=== PATIENT | male | born 1950 | race Caucasian/White ===

== ENCOUNTER 2018-12-19 23:15 | Emergency (ER) | payer OTHER, BC ==
--- OUTSIDE RECORDS SUMMARY | 2018-12-19 23:19 | XMS REPORT ---
:1950 Author Organization [facility] Address [address] [place] [address] Dr. Pitts [address] [place] [id number] Care Team Providers Name Role Phone Unavailable Unavailable Unavailable Problems This patient has no known problems. Allergies, Adverse Reactions, Alerts This patient has no known allergies or adverse reactions. Medications This patient has no known medications.
--- OUTSIDE RECORDS SUMMARY | 2018-12-19 23:19 | XMS REPORT | Clinical Summary ---
:1950 Author Organization [facility] Address [address] [place] [address] Care Team Providers Name Role Phone Hiro Nathan MD Primary Care Provider Allergies No Known Allergies Medications Medication Sig Dispensed Refills Start Date End Date Status cholecalciferol, Take 1,000 0 Active vitamin D3, (VITAMIN Units by mouth D3) 2,000 unit daily. capsule capsule polyethylene glycol Take 17 g by 0 Active (MIRALAX) 17 gram mouth daily. packet docusate sodium Take 100 mg by 0 Active (COLACE) 50 MG mouth daily. capsule cyanocobalamin, Place 1,000 0 Active vitamin B-12, 5,000 mcg under the mcg tablet, tongue daily. sublingual losartan (COZAAR) 25 Take 25 mg by 0 Active MG tablet mouth 2 (two) times a day as needed. inFLIXimab Infuse into a 0 Active (REMICADE) 100 mg venous injection catheter. levothyroxine Take 88 mcg by 0 Active (SYNTHROID, LEVOXYL) mouth every 88 mcg tablet morning. clonAZEPAM Take 1 mg by 0 Active (KlonoPIN) 1 MG mouth 2 (two) tablet times a day as needed for seizures. multivitamin Chew 1 tablet 0 Active tablet,chewable daily. furosemide (LASIX) Take 1 tablet 90 tablet 0 08/17/2018 Active 40 mg tablet (40mg) by mouth twice daily as directed potassium chloride TAKE 2 90 tablet 0 08/17/2018 Active (K-DUR) 20 MEQ CR TABLETS(40 tablet MEQ) BY MOUTH DIRECTED UNITHROID 88 mcg TK 1 T PO QD. 11 07/05/2016 Discontinued tablet 8 aspirin (ECOTRIN) 81 Take 81 mg by 0 Discontinued MG enteric coated mouth daily. 8 tablet propafenone SR Take 325 mg by 3 06/07/2016 Discontinued (RYTHMOL SR) 325 MG mouth 2 (two) 9 12 hr capsule times a day. clonAZEPAM TK 1 T PO BID. 2 07/05/2016 Discontinued (KlonoPIN) 1 MG 8 tablet furosemide (LASIX) Take 40 mg by 3 05/31/2016 Discontinued 40 mg tablet mouth daily as 8 needed. Prn for BLE swelling therapeutic Take 1 tablet 0 Discontinued multivitamin by mouth 8 (THERAGRAN) tablet daily. sodium,potassium,mag Dispense one 354 mL 0 01/30/2018 Discontinued sulfates (SUPREP kit, pt to use 8 BOWEL PREP KIT) as directed. 17.5-3.13-1.6 gram recon solnIndications: Encounter for screening colonoscopy multivitamins & Take 15 mL by 0 Discontinued minerals-ferrous mouth daily. 8 gluconate 9 mg iron/15 mL liquid mercaptopurine Take 1 tablet 20 tablet 0 05/04/2018 Discontinued (PURINETHOL) 50 mg (50 mg total) 8 chemo by mouth daily tabletIndications: for 20 days. Crohn's disease of small intestine with other complication (HCC) mercaptopurine TAKE 1 TABLET 90 tablet 0 06/08/2018 Discontinued (PURINETHOL) 50 mg BY MOUTH 8 chemo DAILY. tabletIndications: Crohn's disease of small intestine with other complication (HCC) azaTHIOprine Take 2 tablets 60 tablet 0 06/12/2018 Discontinued (IMURAN) 50 mg (100 mg total) 8 tabletIndications: by mouth daily Crohn's disease of for 30 days. both small and lg int w oth complication (HCC) azaTHIOprine TAKE 2 TABLETS 60 tablet 2 06/12/2018 Discontinued (IMURAN) 50 mg BY MOUTH DAILY 8 tabletIndications: Crohn's disease of both small and lg int w oth complication (HCC) furosemide (LASIX) Take 40 mg by 0 Discontinued 40 mg tablet mouth as 8 needed. apixaban (ELIQUIS) 5 Take 1 tablet 60 tablet 0 07/06/2018 Discontinued mg tablet (5 mg total) 9 by mouth 2 (two) times a day for 30 days. pantoprazole Take 1 tablet 30 tablet 0 07/07/2018 (PROTONIX) 40 MG EC (40 mg total) 9 tablet by mouth daily for 30 days. furosemide (LASIX) Take 1 tablet 14 tablet 1 07/14/2018 Discontinued 40 mg tablet (40 mg total) 8 by mouth 2 (two) times a day for 7 days. potassium chloride Take 2 (40 14 tablet 1 07/14/2018 Discontinued (K-DUR) 20 MEQ CR mEq) tablets 8 tablet by mouth once daily for 7 days furosemide (LASIX) TAKE 1 180 tablet 1 07/17/2018 Discontinued 40 mg tablet TABLET(40 MG) 9 BY MOUTH TWICE DAILY FOR 7 DAYS potassium chloride TAKE 2 180 tablet 1 07/17/2018 Discontinued (K-DUR) 20 MEQ CR TABLETS(40 9 tablet MEQ) BY MOUTH EVERY DAY FOR 7 DAYS potassium chloride TAKE 2 10 tablet 0 07/24/2018 Discontinued (K-DUR) 20 MEQ CR TABLETS(40 9 tablet MEQ) BY MOUTH DIRECTED furosemide (LASIX) Take 1 tablet 10 tablet 0 07/24/2018 Discontinued 40 mg tablet (40mg) by 9 mouth twice daily as directed methotrexate, PF, 25 Inject 25 mg 0.5 mL 0 08/03/2018 mg/0.5 mL under the skin 9 auto-injectorIndicat once for 1 ions: Crohn's dose. disease of small and large intestines with complication (HCC) methotrexate Take 1 tablet 4 tablet 2 08/03/2018 (TREXALL) 10 MG (10 mg total) 9 tabletIndications: by mouth once Crohn's disease of a week for 90 small and large days. intestines with complication (HCC) apixaban (ELIQUIS) 5 Take 1 tablet 60 tablet 0 08/04/2018 Discontinued mg tablet (5 mg total) 9 by mouth 2 (two) times a day for 30 days. ELIQUIS 5 mg tablet TAKE 1 60 tablet 0 08/31/2018 Discontinued TABLET(5 MG) 9 BY MOUTH TWICE DAILY ELIQUIS 5 mg tablet TAKE 1 60 tablet 0 10/04/2018 Discontinued TABLET(5 MG) 9 BY MOUTH TWICE DAILY apixaban (ELIQUIS) 5 Take 1 tablet 180 tablet 3 10/04/2018 Discontinued mg tablet (5 mg total) 9 by mouth 2 (two) times a day. Active Problems Problem Noted Date PVC (premature ventricular contraction) 10/13/2018 Last Assessment & Plan: Skipped beats almost daily Bardy 1-wk monitor to assess for PVC burden RTC ~ 3 months Localized edema 10/13/2018 Overview: R LE > L LE edema continue with knee-high tedhose Continue Lasix Paroxysmal atrial fibrillation 04/14/2018 Last Assessment & Plan: No recurrence after ablation (07/05/18) RTC ~ 3 months Atrial fibrillation 12/08/2017 Last Assessment & Plan: No recurrence Crohn's disease 03/25/2017 Abdominal pain 01/05/2017 Gastrointestinal bleeding 12/23/2016 Iron deficiency anemia 08/27/2016 Encounters Date Type Specialty Care Team Description 12/15/2018 Clinical Support Gastroenterology Crohn's disease of small intestine with other complication (HCC) 12/15/2018 Office Visit Cardiology [place] Atrial fibrillation, unspecified type (HCC) (Primary Dx); Mahin Bravo MD PVC (premature ventricular contraction) 12/15/2018 Infusion Infusion Therapy Iron deficiency anemia, unspecified iron deficiency anemia type (Primary Dx) 12/14/2018 Telephone Gastroenterology Yolis Kauffman MA 12/07/2018 Telephone Gastroenterology Yolis Kauffman MA 11/29/2018 Telephone Gastroenterology Yolis Kauffman MA 11/28/2018 Infusion Infusion Therapy Crohn's disease of small intestine with other complication (HCC) (Primary Dx) 11/21/2018 Telephone Gastroenterology Yolis Kauffman MA 11/09/2018 Office Visit Gastroenterology Isiah Wang Crohn's disease of O.MD small intestine with other complication (HCC) (Primary Dx) 10/13/2018 Office Visit Cardiology [place] Paroxysmal atrial fibrillation (HCC) (Primary Dx); Mahin Bravo MD PVC (premature ventricular contraction); Localized edema 10/05/2018 Infusion Infusion Therapy Crohn's disease of small intestine with other complication (HCC) (Primary Dx) 10/04/2018 Refill Cardiology Magalys Casper Refill Misty, RN 10/02/2018 Refill Cardiology [facility] Med Refill Mahin Bravo MD 09/01/2018 Orders Only Cardiology Mahin Goodson MD 08/31/2018 Refill Cardiology [place], Med Refill Mahin Bravo MD 08/17/2018 Orders Only Cardiology Prema Grider MA 08/07/2018 Office Visit Cardiology Melinda Goodson MD fibrillation (HCC) (Primary Dx) 08/04/2018 Refill Cardiology Prema Grider, Med Refill MA 08/04/2018 Refill Cardiology [place] Med Refill Mahin Bravo MD 08/04/2018 Refill Cardiology [place] Med Refill Mahin Bravo MD 08/03/2018 Office Visit Gastroenterology Isiha Wang Crohn's disease of O.MD small and large intestines with complication (HCC) (Primary Dx) 08/03/2018 Infusion Infusion Therapy Crohn's disease of small intestine with other complication (HCC) (Primary Dx) 08/03/2018 Orders Only Cardiology Magalys Casper Atrial Misty, SHERLYN fibrillation, unspecified type (HCC) (Primary Dx) 08/03/2018 Refill Cardiology [facility] Med Refill Mahin Bravo MD 07/24/2018 Orders Only Cardiology Prema Grider, Paroxysmal atrial MA fibrillation (HCC) (Primary Dx) 07/14/2018 Refill Cardiology [place] Med Refill Mahin Bravo MD 07/14/2018 Refill Cardiology Prema Grider, Med Refill MA 07/13/2018 Telephone Gastroenterology Yolis Kauffman MA 07/06/2018 Refill Cardiology Mirza Goodson Refadrianna Bravo MD 07/05/2018 Anesthesia Event Procedural Cardiology Renan Burch CRNA 07/05/2018 Surgery Procedural Cardiology Khadijah Goodson complete ep Mahin Bravo MD study w ablation pulmonary vein [68255 (CPT)] 07/05/2018 Hospital Cardiology Melinda Goodson atrial - Encounter Mahin Bravo MD fibrillation (HCC) 07/06/2018 07/03/2018 Lab Lab [facility] Paroxysmal atrial Mahin Braov MD fibrillation (HCC) (Primary Dx) 06/21/2018 Orders Only Gastroenterology Yolis Kauffman, Crohn's disease of [place] small intestine with other complication (HCC) (Primary Dx) 06/13/2018 Infusion Infusion Therapy Crohn's disease of small intestine with other complication (HCC) (Primary Dx) 06/12/2018 Refill Gastroenterology Isiah Wang Crohn's disease of O.MD both small and lg int w oth complication (HCC) 06/12/2018 Telephone Gastroenterology Yolis Kauffman MA 06/12/2018 Orders Only Gastroenterology Yolis Kauffman, Crohn's disease of [place] both small and lg int w oth complication (HCC) (Primary Dx) 06/06/2018 Orders Only GastroenterYolis Damon MA 06/06/2018 Refill Gastroenterology Isiah Wang's disease of OMD [place] small intestine with other complication (HCC) 06/02/2018 Telephone Gastroenterology Yolis Kauffman MA 06/01/2018 Orders Only Cardiology Cheo, Prema, Paroxysmal atrial MA fibrillation (HCC) (Primary Dx) 05/23/2018 Telephone GastroenterYolis Damon MA 05/23/2018 Telephone GastroenterYolis Damon MA 05/12/2018 Telephone GastroenterYolis Damon MA 05/04/2018 Office Visit Gastroenterology Isiah Wang's valentin of OMD [place] small intestine with other complication (HCC) (Primary Dx) 04/18/2018 Infusion Infusion Therapy Crohn's disease of small intestine with other complication (HCC) (Primary Dx) 04/14/2018 Orders Only Cardiology Cheo, Prema, Paroxysmal atrial MA fibrillation (Primary Dx) 03/08/2018 Orders Only Cardiology Cheo, Prema, Atrial MA fibrillation, unspecified type (Primary Dx) 03/08/2018 Orders Only Cardiology Cheo, Prema, Atrial MA fibrillation, unspecified type (Primary Dx) 03/02/2018 Office Visit Gastroenterology Isiah Wang's valentin of OMD [place] small intestine with other complication (Primary Dx) 03/02/2018 Hospital Procedural Cardiology Valderrabano, Crohn's disease of Encounter Mahin Bravo MD small intestine with other complication 02/21/2018 Infusion Infusion Therapy Crohn's disease of small intestine with other complication (Primary Dx) 02/08/2018 Telephone Gastroenterology Yolis Kauffman MA 02/07/2018 Surgery Gastroenterology Isiah Wang MD 02/07/2018 Anesthesia Event Gastroenterology Tien Devi MD 02/07/2018 [facility] Gastroenterology Isiah Wang Paroxysmal atrial Encounter MD [place] fibrillation (Primary Dx) 01/30/2018 Orders Only Gastroenterology Yolis Kauffman, Encounter for [place] screening colonoscopy (Primary Dx) 01/10/2018 Orders Only GastroenterYolis Damon MA 01/10/2018 Telephone Yolis Funk MA 01/09/2018 Office Visit Gastroenterology Isiah Wang Crohn's disease of both small and large intestine with other complication (Primary Dx); MD [place] Anemia, unspecified type 01/02/2018 Telephone Gastroenterology Isiah Wang MD 12/27/2017 Infusion Infusion Therapy Crohn's disease of small intestine with other complication (Primary Dx) 12/27/2017 Orders Only GastroenterYolis Damon, Crohn's disease of [place] small intestine with complication (Primary Dx) after 12/18/2017 Immunizations Name Dates Previously Given Next Due Hep A / Hep B 03/29/2017 Hepatitis A 10/25/2017 Hepatitis B 05/10/2017 Family History Medical History Relation Name Comments No Known Problems Brother No Known Problems Father No Known Problems Maternal Aunt No Known Problems Maternal Grandfather No Known Problems Maternal Grandmother No Known Problems Maternal Uncle Colon polyps Mother No Known Problems Paternal Aunt No Known Problems Paternal Grandfather No Known Problems Paternal Grandmother No Known Problems Paternal Uncle No Known Problems Sister Relation Name Status Comments Brother Father Maternal Aunt Maternal Grandfather Maternal Grandmother Maternal Uncle Mother Paternal Aunt Paternal Grandfather Paternal Grandmother Paternal Uncle Sister Social History Tobacco Use Types Packs/Day Years Used Date Never Smoker Smokeless Tobacco: Never Used Alcohol Use Drinks/Week oz/Week Comments No Sex Assigned at Date Recorded Not on file Job Start Date Occupation Industry Not on file Not on file Not on file Travel History Travel Start Travel End No recent travel history available. Last Filed Vital Signs Vital Sign Reading Time Taken Blood Pressure 121/58 12/15/2018 1:01 PM CDT Pulse 56 12/15/2018 1:01 PM CDT Temperature 36.8 C (98.3 F) 11/09/2018 3:37 PM CDT Respiratory Rate 16 12/15/2018 1:01 PM CDT Oxygen Saturation 98% 07/06/2018 7:44 AM [employer] EXAM[employer] Inhaled Oxygen Concentration - - Weight 73.9 kg (163 lb) 12/15/2018 1:01 PM CDT Height 182.9 cm (6') 12/15/2018 1:01 PM CDT Body Mass Index 22.11 12/15/2018 1:01 PM CDT Plan of Treatment Date Type Specialty Care Team Description 12/25/2018 Infusion Infusion Therapy 01/23/2019 Infusion Infusion Therapy 02/01/2019 Office Visit Gastroenterology Isaih Wang MD [address] [facility] [address] [place], [place] [id number] 03/09/2019 Office Visit Cardiology Mahin Goodson MD [address] [facility] [address] [place], [place] [id number] Health Maintenance Due Date Last Done Comments SHINGLES VACCINES (#1) 1999 65+ PNEUMOCOCCAL VACCINE (1 of 2 - PCV13) 2014 PNEUMOCOCCAL POLYSACCHARIDE VACCINE AGE 65 AND OVER 2014 INFLUENZA VACCINE 02/15/2019 COLON CANCER SCREENING 02/07/2023 02/07/2018 Procedures Procedure Name Priority Date/Time Associated Diagnosis Comments ECG 12-LEAD Routine 12/15/2018 1:01 Atrial fibrillation, Results for this PM CDT unspecified type procedure are in (HCC) the results section. EXTRA LAVENDER-TOP Routine 11/28/2018 10:44 Results for this TUBE (NOT ORDERABLE) AM CDT procedure are in the results section. FOLATE LEVEL STAT 11/28/2018 10:44 Crohn's disease of Results for this AM CDT small intestine with procedure are in other complication the results ([facility]) section. VITAMIN B12 LEVEL STAT 11/28/2018 10:44 Crohn's disease of Results for this AM CDT small intestine with procedure are in other complication the results ([facility]) section. VITAMIN D 25 HYDROXY STAT 11/28/2018 10:44 Crohn's disease of Results for this LEVEL AM CDT small intestine with procedure are in other complication the results (HCC) section. TOTAL IRON BINDING Routine 11/28/2018 10:44 Crohn's disease of Results for this CAPACITY AM CDT small intestine with procedure are in other complication the results (HCC) section. FERRITIN LEVEL STAT 11/28/2018 10:44 Crohn's disease of Results for this AM CDT small intestine with procedure are in other complication the results (HCC) section. CALPROTECTIN, STOOL Routine 11/16/2018 3:52 Crohn's disease of Results for this PM CDT small intestine with procedure are in other complication the results (HCC) section. BASIC METABOLIC PANEL Routine 11/16/2018 3:50 Crohn's disease of Results for this PM CDT small intestine with procedure are in other complication the results (HCC) section. SEDIMENTATION RATE Routine 11/16/2018 3:50 Crohn's disease of Results for this PM CDT small intestine with procedure are in other complication the results (HCC) section. C-REACTIVE PROTEIN Routine 11/16/2018 3:50 Crohn's disease of Results for this PM CDT small intestine with procedure are in other complication the results (HCC) section. CBC WITH PLATELET AND Routine 11/16/2018 3:50 Crohn's disease of Results for this DIFFERENTIAL PM CDT small intestine with procedure are in other complication the results (HCC) section. ECG 12-LEAD Routine 10/13/2018 2:06 Paroxysmal atrial Results for this PM CDT fibrillation (HCC) procedure are in the results section. CV PACEMAKER DEFIB ILR Routine 09/01/2018 INTERROGATION ECG 12-LEAD Routine 08/07/2018 1:38 Paroxysmal atrial Results for this PM [employer]ER fibrillation (HCC) procedure are in the results section. ECHOCARDIOGRAM 2D Routine 08/03/2018 4:33 Atrial fibrillation, Results for this COMPLETE W MMODE PM [employer]ER unspecified type procedure are in SPECTRAL COLOR DOPPLER ([facility]) the results ([address]) section. QUANTIFERON-TB GOLD Routine 08/03/2018 11:15 Results for this PLUS, 1 TUBE AM [employer]ER procedure are in the results section. COMPREHENSIVE STAT 07/27/2018 9:59 Paroxysmal atrial Results for this METABOLIC PANEL AM [employer]ER fibrillation (HCC) procedure are in the results section. ECG 12-LEAD Routine 07/06/2018 6:09 Results for this AM [employer]ER procedure are in the results section. ECG 12-LEAD STAT 07/05/2018 6:48 Results for this PM [employer] EX[employer]ER procedure are in the results section. ACTIVATED CLOTTING Routine 07/05/2018 6:16 Results for this TIME PM [employer] EXAMINER procedure are in the results section. ACTIVATED CLOTTING Routine 07/05/2018 5:49 Results for this TIME PM [employer] EX[employer]ER procedure are in the results section. EP COMPLETE EP STUDY W Routine 07/05/2018 5:44 Paroxysmal atrial Results for this ABLATION PULMONARY PM [employer] EXAM[employer]ER fibrillation (HCC) procedure are in VEIN the results section. ACTIVATED CLOTTING Routine 07/05/2018 4:35 Results for this TIME PM [employer] EXAMINER procedure are in the results section. ACTIVATED CLOTTING Routine 07/05/2018 4:27 Results for this TIME PM [employer] EXAMINER procedure are in the results section. ACTIVATED CLOTTING Routine 07/05/2018 4:19 Results for this TIME PM [employer] EXAMINER procedure are in the results section. ACTIVATED CLOTTING Routine 07/05/2018 4:10 Results for this TIME PM [employer] EXAMINER procedure are in the results section. ARTERIAL LINE Routine 07/05/2018 3:57 PM HAND [employer]OTH EXAMINER Procedure Note - Juan Toth CRNA - 07/05/2018 3:57 PM HAND [employer]OTH EXAMINER Arterial line Performed by: Juan Toth CRNA Authorized by: Sushma Segura MD Patient Location: OR Start Time: 07/05/2018 3:36 PM End Time: 07/05/2018 3:40 PM Staff: Anesthesiologist: Sushma Segura MD Resident/MOTION PICTURE CAMERAMAN/AA: Juan Toth CRNA Performed by: Anesthesiologist Pre-procedure: patient identified, IV checked, site and side verified, risks and benefits discussed, procedure verified, surgical consent complete, patient position confirmed, monitors and equipment checked and pre-op evaluation complete MSBT: antiseptic used, all elements of maximal sterile barrier technique followed, hand hygiene performed and solutions labeled Indications: Indications: multiple ABGs and hemodynamic monitoring Anesthesia: Anesthesia: General Procedure Details: Arterial Line placement: Placed post induction Line placement site: Radial Line placement side: Left Arterial line gauge: 20 G Number of attempts: 1 Ultrasound guidance used: No Post-procedure: Post-procedure: Sterile dressing applied Post procedure circulation, sensation, movement: Unchanged Patient tolerance: Patient tolerated the procedure well with no immediate complications ANESTHESIA INTUBATION Routine 07/05/2018 3:53 PM [employer]OTH EXAMINER Procedure Note - Juan Toth CRNA - 07/05/2018 3:53 PM HAND [employer]OTH EXAMINER ANESTHESIA INTUBATION Date/Time: 07/05/2018 3:39 PM Performed by: Juan Toth CRNA Authorized by: Sushma Segura MD Location: OR Difficult Airway: No Anesthesiologist: Sushma Segura MD Resident/MOTION PICTURE CAMERAMAN/AA: Juan Toth CRNA Performed by: resident/MOTION PICTURE CAMERAMAN/AA Preoxygenated with 100% O2: Yes Mask Ventilation: Easy mask Final Airway Type: Endotracheal airway Final Endotracheal Airway: ETT Cuffed: Yes Technique Used: Direct laryngoscopy Devices/Methods Used in Placement: Intubating stylet Insertion Site: Oral Blade Type: Theodore Laryngoscope Blade/Videolaryngoscope Blade Size: 2 ETT Size (mm): 8.0 Cuff at minimum occlusion pressure: Yes Measured from: Lips ETT to Lips (cm): 23 Placement Verified by: CO2 detection, direct visualization and equal breath sounds Laryngoscopic view: Grade I - full view of glottis Rapid Sequence Induction (RSI): No Number of Attempts at Approach: 1 Atraumatic intubation, dentition unchanged ECG 12-LEAD STAT 07/05/2018 12:36 Results for this PM [employer]ER procedure are in the results section. TYPE AND SCREEN Routine 07/05/2018 12:35 Results for this PM [employer]ER procedure are in the results section. C-REACTIVE PROTEIN Routine 07/03/2018 4:22 Results for this PM [employer] EX[employer]INER procedure are in the results section. SEDIMENTATION RATE Routine 07/03/2018 4:22 Results for this PM [employer] EX[employer]ER procedure are in the results section. ESTIMATED GFR Routine 07/03/2018 4:22 Results for this PM [employer]ER procedure are in the results section. PROTHROMBIN TIME WITH INR Routine 07/03/2018 4:22 Paroxysmal atrial Results for this PM [employer]ER fibrillation (HCC) procedure are in the results section. HC COMPLETE BLD COUNT Routine 07/03/2018 4:22 Paroxysmal atrial Results for this W/AUTO DIFF PM [employer] EXAM[employer]ER fibrillation (HCC) procedure are in the results section. COMPREHENSIVE METABOLIC Routine 07/03/2018 4:22 Paroxysmal atrial Results for this PANEL PM [employer] EXAMINER fibrillation (HCC) procedure are in the results section. CBC WITH PLATELET AND Routine 05/22/2018 1:54 Crohn's disease of Results for this DIFFERENTIAL PM [employer] EXAMINER small intestine procedure are in with other the results complication (HCC) section. THIOPURINE Routine 05/05/2018 3:58 Crohn's disease of Results for this METHYLTRANSFERASE (TPMT) PM CDT small intestine procedure are in ACTIVITY with other the results complication (HCC) section. C-REACTIVE PROTEIN STAT 04/18/2018 10:14 Crohn's disease of Results for this AM CDT small intestine procedure are in with other the results complication (HCC) section. SEDIMENTATION RATE STAT 04/18/2018 10:14 Crohn's disease of Results for this AM CDT small intestine procedure are in with other the results complication (HCC) section. CBC WITH PLATELET AND STAT 04/18/2018 10:14 Crohn's disease of Results for this DIFFERENTIAL AM CDT small intestine procedure are in with other the results complication (HCC) section. CALPROTECTIN, STOOL Routine 03/25/2018 11:38 Crohn's disease of Results for this AM CDT small intestine procedure are in with other the results complication section. CBC WITH PLATELET AND Routine 03/25/2018 11:36 Crohn's disease of Results for this DIFFERENTIAL AM CDT small intestine procedure are in with other the results complication section. SEDIMENTATION RATE Routine 03/25/2018 11:36 Crohn's disease of Results for this AM CDT small intestine procedure are in with other the results complication section. C-REACTIVE PROTEIN Routine 03/25/2018 11:36 Crohn's disease of Results for this AM CDT small intestine procedure are in with other the results complication section. COMPREHENSIVE METABOLIC Routine 03/25/2018 11:36 Crohn's disease of Results for this PANEL AM CDT small intestine procedure are in with other the results complication section. CARDIAC MRI PULMONARY Routine 03/02/2018 2:51 Crohn's disease of Results for this VEIN ABLATION EVAL W PM CDT small intestine procedure are in CONTRAST with other the results complication section. POC PANEL Routine 03/02/2018 1:37 Results for this PM CDT procedure are in the results section. ESTIMATED GFR Routine 03/02/2018 1:37 Results for this PM CDT procedure are in the results section. COLONOSCOPY 02/07/2018 9:45 Crohn's disease of AM CDT both small and large intestine with other complication CALPROTECTIN, STOOL Routine 01/03/2018 2:41 Crohn's disease of Results for this PM CDT small intestine procedure are in with complication the results section. C-REACTIVE PROTEIN STAT 12/27/2017 10:20 Crohn's disease of Results for this AM CDT small intestine procedure are in with other the results complication section. SEDIMENTATION RATE STAT 12/27/2017 10:20 Crohn's disease of Results for this AM CDT small intestine procedure are in with other the results complication section. CBC WITH PLATELET AND STAT 12/27/2017 10:20 Crohn's disease of Results for this DIFFERENTIAL AM CDT small intestine procedure are in with other the results complication section. after 12/18/2017 Results ECG 12 lead (12/15/2018 1:01 PM CDT)Only the most recent of6 resultswithin the time period is included. Ventricular rate 55 [facility] Atrial rate 55 [facility] SC interval 174 [facility] QRSD interval 94 [facility] QT interval 414 [facility] QTC interval 396 [facility] P axis 1 67 [facility] QRS axis 1 47 [facility] T wave axis 10 [facility] EKG impression Sinus [facility] bradycardia-Otherwise normal ECG-In automated comparison with ECG of 13-OCT-2018 14:06,-No significant change was found- Specimen Narrative Performed At Performing Organization Address [facility] Phone Number [facility] [address] [place] [address] Extra lavender-top tube (11/28/2018 10:44 AM CDT) EXTRA LAVENDER-TOP [facility] TUBE Comment: [place] AN EXTRA SPECIMEN WAS RECEIVED WITH NO TEST REQUESTED. THE SPECIMEN WILL BE MAINTAINED IN STORAGE IN CASE ADDITIONAL TESTING IS NEEDED. PLEASE CALL THE CLIENT SERVICE DEPARTMENT FOR FURTHER ASSISTANCE. Specimen Resulting Agency Comment Performing Organization Information: Site ID: RGA [facility]: [facility] Address: [address] [place] [phone] Director: Mary Vargas Performing Organization Address City/[facility]/Zipcode Phone Number [facility] [address] [address] Total iron binding capacity (11/28/2018 10:44 AM CDT) Pathologist [facility] Iron level 45 (L) 50 - 180 mcg/dL [employer] [facility] Iron binding capacity 384 250 - 425 [facility] mcg/dL (calc) [place] Iron saturation 12 (L) 15 - 60 % [facility] (calc) [place] Specimen Blood Resulting Agency Comment Performing Organization Information: Site ID: RGA Name: [facility] Address: [address] [place] [phone] Director: Mary Vargas Performing Organization Address [facility] [place] [address] Vitamin D 25 hydroxy level (11/28/2018 10:44 AM CDT) Vitamin D, 46 30 - 100 [facility] 25-hydroxy Comment: ng/mL [facility] Vitamin D Status 25-OH Vitamin D: Deficiency:<20 ng/mL Insufficiency: 20 - 29 ng/mL Optimal: > or=30 ng/mL For 25-OH Vitamin D testing on patients on D2-supplementation and patients for whom quantitation of D2 and D3 fractions is required, the QuestAssureD(TM) 25-OH VIT D, (D2,D3), LC/MS/MS is recommended: order code 50152 (patients >2yrs). For more information on this test, go to: http://education.Vocollect/faq/DKX333 (This link is being provided for informational/educational purposes only.) Specimen Blood Resulting Agency Comment Performing Organization Information: Site ID: RGA Name: [facility] Address: [address] [place] [phone] Director: Mary Vargas Performing Organization Address [facility] [place] [address] Folate level (11/28/2018 10:44 AM CDT) Pathologist [facility] Folate >24.0 ng/mL [facility] Comment: [place] Reference Range Low: <3.4 Borderline:3.4- 5.4 Normal:> 5.4 Specimen Blood Resulting Agency Comment Performing Organization Information: Site ID: RGA Name: [facility] Address: [address] [place] [phone] Director: Mary Vargas Performing Organization Address [facility] [place] [address] Ferritin level (11/28/2018 10:44 AM CDT) Ferritin level 8 (L) 20 - 380 ng/mL [employer] [place] Specimen Blood Resulting Agency Comment Performing Organization Information: Site ID: RGA Name: [facility] Address: [address] [place] [phone] Director: Mary Vargas Performing Organization Address [facility] Hospital[facility] [place] [address] Vitamin B12 level (11/28/2018 10:44 AM CDT) Vitamin B12 700 200 - 1,100 pg/mL [employer] [facility] Specimen Blood Resulting Agency Comment Performing Organization Information: Site ID: RGA Name: [facility] Address: [address] [place] [phone] Director: Mary Vargas Performing Organization Address [facility] [place] [address] Calprotectin, stool (11/16/2018 3:52 PM CDT)Only the most recent of3 resultswithin the time period is included. Calprotectin, 458.2 (H) mcg/g [facility] stool Comment: DIAGNOSTICS/JAZMIN LS SJ <15.625 - 50 mcg/g Normal >50 - 120 mcg/gBorderline >120 mcg/g Abnormal Calprotectin in Crohn's disease and ulcerative colitis can be five to several thousand times above the reference population (50 mcg/g or less). Levels are usually 50 mcg/g or less in healthy patients and with irritable bowel syndrome. Repeat testing in 4-6 weeks is suggested for borderline values. Specimen Stool Narrative Performed At FASTING:NO [facility] FASTING: NO Resulting Agency Comment Performing Organization Information: Site ID: EZ Name: [facility], Address: [address] [place] [phone] Director: Danielle Jones MD,PhD,DERECK Performing Organization Address City/State/[facility] Hospitalcode Phone Number [facility] [address] [place], [place] [phone] [facility] Sedimentation rate (11/16/2018 3:50 PM CDT)Only the most recent of5 resultswithin the time period is included. Sedimentation rate 2 < OR=20 mm/h [facility] C4M [place] Specimen Blood Narrative Performed At FASTING:NO [facility] FASTING: NO Resulting Agency Comment Performing Organization Information: Site ID: RGA Name: [facility] Address: [address] [place] [phone] Director: Mary Vargas Performing Organization Address City/State/Zipcode Phone Number [facility] [address] [address] CBC with platelet and differential (11/16/2018 3:50 PM CDT)Only the most recent of6 resultswithin the time period is included. WBC 4.5 3.8 - 10.8 [facility] Thousand/uL [place] RBC 3.94 (L) 4.20 - 5.80 [facility] Million/uL [place] HGB 10.0 (L) 13.2 - 17.1 [facility] g/dL [place] HCT 31.8 (L) 38.5 - 50.0 % [employer] [place] MCV 80.7 80.0 - 100.0 fL [employer] [place] MCH 25.4 (L) 27.0 - 33.0 pg [employer] [place] MCHC 31.4 (L) 32.0 - 36.0 [facility] g/dL [place] RDW 14.4 11.0 - 15.0 % [employer] [place] Platelet count 209 140 - 400 [facility] Thousand/uL [place] MPV 10.1 7.5 - 12.5 fL [employer] [place] Neutrophils, absolute 3,177 1,500 - 7,800 [facility] cells/uL [place] Lymphocytes, absolute 671 (L) 850 - 3,900 [facility] cells/uL [place] Monocytes, absolute 531 200 - 950 [facility] cells/uL [place] Eosinophils, absolute 81 15 - 500 [facility] cells/uL [place] Basophils, absolute 41 0 - 200 [facility] cells/uL [place] Neutrophils 70.6 % [facility] Lymphocytes 14.9 % [facility] Monocytes 11.8 % [facility] [place] Eosinophils 1.8 % [facility] [place] Basophils + RC 0.9 % [employer] [place] Specimen Blood Narrative Performed At FASTING:NO [facility] FASTING: NO Resulting Agency Comment Performing Organization Information: Site ID: [id number] Name: [facility] Address: [address] [place] [phone] Director: Mary Vargas Performing Organization Address [facility] [place] [address] C-reactive protein (11/16/2018 3:50 PM CDT)Only the most recent of5 resultswithin the time period is included. CRP 0.6 <8.0 mg/L [employer] [facility] Specimen Blood Narrative Performed At FASTING:NO [facility] FASTING: NO Resulting Agency Comment Performing Organization Information: Site ID: CALEB Name: [facility] Address: [address] [place] [phone] Director: Mary Vargas Performing Organization Address [facility] Hospital[facility] Phone [place] [address] Basic metabolic panel (11/16/2018 3:50 PM CDT) Glucose 103 65 - 139 [facility] Comment: mg/dL [place] Non-fasting reference interval BUN, whole blood 14 7 - 25 mg/dL [facility] [place] Creatinine 0.76 0.70 - 1.25 [facility] Comment: mg/dL [place] For patients >49 years of age, the reference limit for Creatinine is approximately 13% higher for people identified as -Gambian. EGFR Non-Afr. 93 > OR=60 [facility] Gambian mL/min/1.73m [place] 2 EGFR 108 > OR=60 [facility] Gambian mL/min/1.73m [facility] 2 BUN/creatinine NOT APPLICABLE 6 - 22 [facility] ratio (calc) [place] Sodium 137 135 - 146 [facility] mmol/L [place] Potassium 4.2 3.5 - 5.3 [facility] mmol/L [place] Chloride 103 98 - 110 [facility] mmol/L [place] CO2 30 20 - 32 [facility] mmol/L [place] Calcium 8.7 8.6 - 10.3 [facility] mg/dL [place] Specimen Blood Narrative Performed At FASTING:NO [facility] FASTING: NO Resulting Agency Comment Performing Organization Information: Site ID: RGA Name: [facility] Address: [address] [place] [address] Director: Mary Vargas Performing Organization Address City/State/Zipcode Phone Number [facility] [employer] [place] [address] [place], [place] [phone] CV pacemaker defib or ilr interrogation (09/01/2018) Narrative Performed At Echocardiogram complete w contrast and 3D if needed (08/03/2018 4:33 PM HAND CLOTH EXAMINER) Specimen Narrative Performed At [facility] Echocardiography Report Pat.Name:MADI TIWARI JPat.ID:[id number] .Date: 08/03/2018 Refer.MD:MAHIN GOODSON MD Exam Time: 4:12:00 PMStudy Type:Routine Echo Height:72inWeight: 172lb BSA: 2 u8XHRFdl:1950,67Y Sex: MALEBP:134/70 HR:70 bpmSonogrphr: TOMASA Potter Pat. Stat.:OutpatientRoom:[facility] Study Status:Final Echo Event ID:[id number] Order ID:[id number] Reason for Study:Atrial fibrillation, unspecified type (HCC) [I48.91] History / Clinical:Atrial Fibrillation Procedures:2D Echo, Colorflow Doppler Race: SUMMARY: -LV EF is normal. Overall wall motion is normal. EF is 66%. LV filling pressure is normal. -RV size and systolic function are normal. -Moderate LA and RA enlargement. -Estimated PA systolic pressure is 27 mmHg, assuming a mean RAP of 5 mmHg. FINDINGS: LV: LV size is normal. LV EF is normal. Overall wall motion is normal.EF is 66% RV: RV size is normal. RV systolic function is normal. LA: LA volume is moderately enlarged. RA: RA volume is moderately enlarged. AO: Aortic root diameter is normal. NESHA: No pericardial effusion. AV: No structural AV abnormalities noted. MV: No structural MV abnormalities noted. PV: No structural PV abnormalities noted. TV: No structural TV abnormalities noted. A trace of tricuspid regurgitation Adan: LV relaxation is normal. LV filling pressure is normal. Other:Estimated PA systolic pressure is 27 mmHg, assuming a mean RAPof 5 mmHg. MEASUREMENTS: 2D Parasternal Long [place] LVOT 2 cmLA Ds3.4 cm LVIDd4.8 cmIndex2.4 cm/m Ao An2.1 cm LVIDs2.5 cmAo Rtd 3.6 cm Index1.8 cm/m LV%fs 47.2 % LV Sssi290.6 g(122-174) IVSd 1.1 cmLVM Index 88.8 g/m2 LVPWd1 cmRWT0.4 LA Sng Plane LA Area 25.5 cm2(8.8-23.4) LA Vol93.1 ml Index46.5 ml/m LA LngAx 5.6 cm RA Sng Plane RA Area 22.6 cm2(8.3-19.5) RA Vol76.5 ml Index38.2 ml/m RA LngAx 5.6 cm EF Biplane UBF488.3 mlEF66.1 % ESV 55 mlHR69 bpm SV 107.4 mlCO 7.4 l/min DOPPLER LVOT Stroke Vol LVOT 2 cmLVOT CO6.9 l/min LVOT TVI32.5 cmLVOT CI3.5 l/m/m2 LVOT Tm330 xfdpPB37 bpm LVOT SV101.9 ml MV E/A Ratio MV pkE92.9 cm/s (60-130) MV E/A 1.5 MV pkA63.4 cm/s Left Ventricle LaLat Em11.3 cm/s TV Pressure Gradient TV PkVel 235.8 cm/sTV PG 22.2 mmHg Signed 08/04/2018 05:09 PM Jonathan Meehan M.D. Procedure Note Interface, Radiology Results In - 08/04/2018 5:10 PM HAND CLOTH EXAMINER [facility] Echocardiography Report Pat.Name: MADI TIWARI Pat.ID: [id number] .Date: 08/03/2018 Refer.MD: MAHIN GOODSON MD Exam Time: 4:12:00 PM Study Type:Routine Echo Height: 72in Weight: 172lb BSA: 2 m2 Age: 2 1950,67Y Sex: MALE BP: 134/70 HR: 70 bpm Sonogrphr: TOMASA Potter Pat. Stat.:Outpatient Room: [facility] Study Status:Final Echo Event ID:[id number] Order ID: [id number] Reason for Study:Atrial fibrillation, unspecified type (HCC) [I48.91] History / Clinical:Atrial Fibrillation Procedures:2D Echo, Colorflow Doppler Race: SUMMARY: -LV EF is normal. Overall wall motion is normal. EF is 66%. LV filling pressure is normal. -RV size and systolic function are normal. -Moderate LA and RA enlargement. -Estimated PA systolic pressure is 27 mmHg, assuming a mean RAP of 5 mmHg. FINDINGS: LV: LV size is normal. LV EF is normal. Overall wall motion is normal. EF is 66% RV: RV size is normal. RV systolic function is normal. LA: LA volume is moderately enlarged. RA: RA volume is moderately enlarged. AO: Aortic root diameter is normal. NESHA: No pericardial effusion. AV: No structural AV abnormalities noted. MV: No structural MV abnormalities noted. PV: No structural PV abnormalities noted. TV: No structural TV abnormalities noted. A trace of tricuspid regurgitation Adan: LV relaxation is normal. LV filling pressure is normal. Other: Estimated PA systolic pressure is 27 mmHg, assuming a mean RAP of 5 mmHg. MEASUREMENTS: 2D Parasternal Long [place] LVOT 2 cm LA Ds 3.4 cm LVIDd 4.8 cm Index 2.4 cm/m Ao An 2.1 cm LVIDs 2.5 cm Ao Rtd 3.6 cm Index 1.8 cm/m LV%fs 47.2 % LV Mass 177.6 g (122-174) IVSd 1.1 cm LVM Index 88.8 g/m2 LVPWd 1 cm RWT 0.4 LA Sng Plane LA Area 25.5 cm2 (8.8-23.4) LA Vol 93.1 ml Index 46.5 ml/m LA LngAx 5.6 cm RA Sng Plane RA Area 22.6 cm2 (8.3-19.5) RA Vol 76.5 ml Index 38.2 ml/m RA LngAx 5.6 cm EF Biplane EDV 162.3 ml EF 66.1 % ESV 55 ml HR 69 bpm SV 107.4 ml CO 7.4 l/min DOPPLER LVOT Stroke Vol LVOT 2 cm LVOT CO 6.9 l/min LVOT TVI 32.5 cm LVOT CI 3.5 l/m/m2 LVOT Tm 330 msec HR 68 bpm LVOT SV 101.9 ml MV E/A Ratio MV pkE 92.9 cm/s (60-130) MV E/A 1.5 MV pkA 63.4 cm/s Left Ventricle LaLat Em 11.3 cm/s TV Pressure Gradient TV PkVel 235.8 cm/s TV PG 22.2 mmHg Signed 08/04/2018 05:09 PM Jonathan Meehan M.D. Performing Organization Address [facility]code Phone Number [facility] [address] [place] [address] QuantiFERON-TB Gold Plus, 1 Tube (08/03/2018 11:15 AM HAND CLOTH EXAMINER) Quantiferon TB gold NEGATIVE NEGATIVE [facility] plus Comment: [place] Negative test result. M. tuberculosis complex infection unlikely. Quantiferon NIL 0.04 IU/mL [facility] [place] Quantiferon mitogen >10.00 IU/mL [facility] minus NIL [place] Quantiferon plus 0.00 IU/mL [facility] TB1 minus NIL [place] Quantiferon plus 0.00 IU/mL [facility] TB2 minus NIL Comment: [place] The Nil tube value reflects the background interferon gamma immune response of the patient's blood sample. This value has been subtracted from the patient's displayed TB and Mitogen results. Lower than expected results with the Mitogen tube prevent false-negative Quantiferon readings by detecting a patient with a potential immune suppressive condition and/or suboptimal pre-analytical specimen handling. The TB1 Antigen tube is coated with the M. tuberculosis-specific antigens designed to elicit responses from TB antigen primed CD4+ helper T-lymphocytes. The TB2 Antigen tube is coated with the M. tuberculosis-specific antigens designed to elicit responses from TB antigen primed CD4+ helper and CD8+ cytotoxic T-lymphocytes. For additional information, please refer to http://education.Vocollect/faq/204 (This link is being provided for informational/ educational purposes only.) Specimen Resulting Agency Comment Performing Organization Information: Site ID: RGA Name: [facility] Address: [address] [place] [phone] Director: Mary Vargas Performing Organization Address [facility] Phone Number [facility] [address] [address] Comprehensive metabolic panel (07/27/2018 9:59 AM HAND CLOTH EXAMINER)Only the most recent of3 resultswithin the time period is included. Pathologist [facility] Glucose 80 65 - 99 [facility] Comment: mg/dL [place] Fasting reference interval BUN, whole blood 15 7 - 25 mg/dL [employer] [facility] [place] Creatinine 0.92 0.70 - 1.25 [facility] Comment: mg/dL [place] For patients >49 years of age, the reference limit for Creatinine is approximately 13% higher for people identified as -Gambian. EGFR Non-Afr. 85 > OR=60 [facility] Gambian mL/min/1.73m [place] 2 EGFR 99 > OR=60 [facility] Gambian mL/min/1.73m [facility] 2 BUN/creatinine NOT APPLICABLE 6 - 22 [facility] ratio (calc) [place] Sodium 139 135 - 146 [facility] mmol/L [place] Potassium 4.1 3.5 - 5.3 [facility] mmol/L [place] Chloride 101 98 - 110 [facility] mmol/L [place] CO2 34 (H) 20 - 32 [facility] mmol/L [place] Calcium 8.9 8.6 - 10.3 [facility] mg/dL [place] Protein 5.9 (L) 6.1 - 8.1 [facility] g/dL [place] Albumin, S 3.9 3.6 - 5.1 [facility] g/dL [place] Globulin, total 2.0 1.9 - 3.7 [facility] g/dL (calc) [place] Albumin/globulin 2.0 1.0 - 2.5 [facility] ratio (calc) [place] Total bilirubin 0.7 0.2 - 1.2 [facility] mg/dL [place] Alkaline 78 40 - 115 U/L [facility] phosphatase [place] AST 13 10 - 35 U/L [facility] [place] ALT 7 (L) 9 - 46 U/L [facility] [place] Specimen Blood Narrative Performed At FASTING:YES [facility] FASTING: YES Resulting Agency Comment Performing Organization Information: Site ID: RGA Name: [facility] Address: [address] [place] [phone] Director: Mary Vargas Performing Organization Address City/[facility] Phone Number [facility] [place] [phone] Activated clotting time (07/05/2018 6:16 PM HAND CLOTH EXAMINER)Only the most recent of6 resultswithin the time period is included. Activated clotting 127 96 - 152 sec [facility] Comment: HOSPITAL Meter ID: [id number] Social Media Strategist: Navneet Martinez Specimen Performing Organization Address City/[facility]/Zipcode Phone Number [facility] DEPARTMENT OF PATHOLOGY AND [address] [place] [address] [facility]OM[facility] MEDIC[facility] [address] [address] Cv electrophysiology procedure (07/05/2018 5:44 PM HAND CLOTH EXAMINER) Specimen Narrative Performed At ELECTROPHYSIOLOGY PROCEDURE NOTE [facility] ATTENDING SURGEON: Dr. Mahin Goodson ASSISTING SURGEON: Dr Sunil Lucas, Clinical Cardiac Electrophysiology fellow PROCEDURES PERFORMED 1. Complete electrophysiology study 2. Three-dimensional mapping 3. Intracardiac echo 4. Three-dimensional mapping. 5. Coronary sinus pacing and recording. 6. Trans-septal puncture 7. Ablation of atrial fibrillation- pulmonary vein isolation 8. Ablation of perimitral flutter. 9. Ablation of peritricuspidean flutter 10. Ablation of PVCs. PATIENT IDENTIFICATION AND INDICATIONS The patient is a 67-year-old man with history of Hypothyroidism, Chron s disease and s/p small bowel resection. Has symptomatic atrial fibrillation, had cardioversion in 2012, and has occasional irregular heartbeats. Also has history of symptomatic multiple PVCs. Referred for atrial fibrillation ablation and PVCs ablation. DESCRIPTION OF THE PROCEDURE After obtaining informed consent, the patient was taken to the procedure note. He received general anesthesia. Groins and access sites were shaved, draped and prepped in the usual sterile fashion. Ultrasound-guided vascular access was obtained in the right femoral veins with 7-10F sheaths. An intracardiac echocardiogram probe was inserted in to the right atrium guided by its own images and then was used to guide the procedure. The procedure was performed without the use of fluoroscopy. A Carto three-dimensional mapping system was used as well. A 20-pole catheter was advanced in the right atrium, coronary sinus. A trans-septal puncture was performed with ICE guidance. LA pressure was 14 mmHg. A 3D map of the LA was obtained with a PentaRay catheter. An ablation catheter was inserted in the LA with a deflectable sheath. Pulmonary vein antral isolation lesions were delivered to achieve a circular lesion set around each pulmonary vein pair. We then joined the two lesion sets with a roof line and a posterior inferior line to achieve a box lesion set including the posterior wall and both pulmonary vein antra. Lesions were delivered in the mitral isthmus that resulted in bidirectional block. Then Lesions were delivered in the RA in the cavotricuspid isthmus that resulted in bidirectional block. We then continued with the PVCs ablation: At baseline, the patient was in sinus rhythm. We advanced the PentaRay catheter and created a 3-dimensional map of the LV. The site of origin of PVCs was determined by detailed pace mapping and reached 96% PVC match at the LV base at the posterior superior process of the LV. We delivered 35 W of radiofrequency ablation for 2 minutes in this location, achieving PVC elimination. After completion of the ablation, no further PVCs were observed with and without epinephrine. The patient tolerated the procedure well and there were no complications. Intracardiac echo demonstrated no effusions. Heparin was given prior to the trans-septal puncture and was reversed after termination. CONCLUSION 1. Successful pulmonary vein antral isolation. 2. Successful ablation of PVCs. I PERFORMED THE PROCEDURE PERSONALLY Performing Organization Address City/[facility]/Zipcode Phone Number [facility] [address] [place] [address] Type and screen (07/05/2018 12:35 PM HAND CLOTH EXAMINER) [facility] ABO grouping O [facility] Rh type POS [facility] Antibody screen (gel) NEG [facility] Specimen Blood Performing Organization Address [facility] Phone Number [facility] DEPARTMENT OF PATHOLOGY AND [address] [place] [phone] Estimated GFR (07/03/2018 4:22 PM HAND CLOTH EXAMINER)Only the most recent of2 resultswithin the time period is included. [facility] Estimated GFR 87 mL/min/1.73 [facility] Comment: HOSPITAL CatergoryUnitsInterpretation G1 >=90 Normal or high G2 60-89Mildly decreased [id number] to moderately decreased [id number] to severely decreased G4 15-29Severely decreased G5 <15Kidney failure The eGFR was calculated using the Chronic Kidney Disease Epidemiology Collaboration (CKD-EPI) equation. Interpretation is based on recommendations of the National Kidney Foundation-Kidney Disease Outcomes Quality Initiative (NKF-KDOQI) published in 2014. Specimen Plasma specimen Performing Organization Address [facility] Phone Number [facility] DEPARTMENT OF PATHOLOGY AND [address] [place] [address] [address] Prothrombin time with INR (07/03/2018 4:22 PM HAND CLOTH EXAMINER) [facility] Prothrombin time 13.9 11.5 - 14.5 [facility] INR 1.1 [facility] Comment: [facility] The International Normalized Ratio (INR) is a therapeutic HOSPITAL monitoring tool for patients who are stable on oral anticoagulant therapy. An INR of 2.0-3.0 is suggested for deep vein thrombosis/pulmonary embolism. Specimen Blood Performing Organization Address City/State/[facility] Phone Number [facility] DEPARTMENT OF PATHOLOGY AND [address] [place] [address] GENOMIC MEDICINE [facility] [address] [place] [address] Thiopurine methyltransferase (TPMT) activity (05/05/2018 3:58 PM CDT) [facility] TPMT activity 14 nmol/hr/mL [facility] Comment: [facility] Reference Range for TPMT Activity: >12 Normal 4-12 Heterozygote or low metabolizer <4 Homozygote Deficient Range This test was developed and its analytical performance characteristics have been determined by [employer] [facility]. It has not been cleared or approved by FDA. This assay has been validated pursuant to the CLIA regulations and is used for clinical purposes. Specimen Narrative Performed At FASTING:NO [facility] FASTING: NO Resulting Agency Comment Performing Organization Information: Site ID: [id number] Name: [employer] [facility], Address: [address] [place] [id number] Director: Danielle Jones MD,PhD,DERECK Performing Organization Address City/[facility]/Zipcode Phone Number [employer] [address] [place] [address] [phone] [facility] Cardiac mri pulmonary vein ablation eval w contrast (03/02/2018 2:51 PM CDT) Specimen Narrative Performed At [facility] CMR Report Name: JANKALLIHAYLIE Larson :1950 Scan Date: 2018-03-02 13:40:03 Electronically signed by Vira Espitia M.D. 18:09:40 VITALS HEIGHT/WEIGHT HEIGHT:72.00 in 182.88 cm WEIGHT:167.00 lbs 75.75 kgs BSA/BP BSA:1.97 m^2 SYSTOLIC BP:187 mmHg DIASTOLIC BP:84 mmHg HEART RATE/RHYTHM BASELINE HR:66 BPM HEART RHYTHM:Sinus Rhythm SUMMARY LEFT VENTRICLE: LV wall thickness is normal. LV cavity size is normal. LV systolic function is normal. Quantitative LVEF 61%. There is no LV mass/thrombus. VIABILITY: LV infarct/scar size is 0%. RIGHT VENTRICLE: RV wall thickness is normal. RV cavity size is normal. RV systolic function is normal. Quantitative RVEF 55%. There is no RV mass/thrombus. VENTRICULAR SEPTUM: The ventricular septum is intact. ATRIAL SEPTUM: The interatrial septum is hypermobile. LEFT ATRIUM: LA is mildly enlarged. There is no LA mass/thrombus. PERICARDIUM: Pericardium is normal. There is no pericardial effusion. PLEURAL EFFUSION: There is no pleural effusion. AORTIC VALVE: Aortic valve is trileaflet. There is no aortic stenosis. MITRAL VALVE: Mitral valve leaflets are normal. There is no mitral stenosis. TRICUSPID VALVE: Tricuspid valve leaflets are normal. There is no tricuspid regurgitation. PULMONIC VALVE: Pulmonic valve leaflets are normal. There is no pulmonic stenosis. AORTIC ROOT: Dilated aortic root (3.9 cm) CHEST: Normal thoracic aorta with no evidence of aneurysm or dissection. Normal pulmonary artery diameters. VENOUS: Variant pulmonary venous anatomy with the presence of left common PV trunk. OTHER FINDINGS: Left renal cyst (1.8 cm x 1.3 cm) FINAL IMPRESSION: A. NORMAL LEFT AND RIGHT VENTRICULAR SIZE AND FUNCTION. B. NO LA OR SEAMUS CLOT. C.VARIANT PULMONARY VENOUS ANATOMY CORE EXAM MEASUREMENTS VOLUMETRIC ANALYSIS . . || | LV | Reference| RV | Reference| +------+-------+------+ +------+ + | EDV| ml|173 |(118-187) |188 |(110-199) | | ESV| ml| 68 |(28-71) | 85 |(22-79) | | CO | L/min | 5.88 || 5.77 || | MASS | g |110 |(112-177) ||| | SV | ml|105 |(79-126)|103 |(73-136)| | EF | % | 61 |(58-76) | 55 |(55-81) | '------+-------+------+ +------+ ' CARDIAC OUTPUT HR:56 bpm LV DIMENSIONS WALL THICKNESS - ANTEROSEPTAL:0.8 cm WALL THICKNESS - INFEROLATERAL:0.8 cm LV HANSEL:5.2 cm LV ESD:3.3 cm LA DIMENSIONS (LV SYSTOLE) DIAMETER:4.3 cm AREA - 2 CHAMBER:31 cm^2 LENGTH - 2 CHAMBER:6.1 cm AREA - 4 CHAMBER:22 cm^2 LENGTH - 4 CHAMBER:5.4 cm VOLUME:107 ml AORTIC ROOT DIMENSIONS ANNULUS:2.8 cm SINUS OF VALSALVA:3.9 cm SINOTUBULAR JUNCTION:3.0 cm EXTRACELLULAR VOLUME MEASUREMENT HEMATOCRIT:36 % HEMATOCRIT DATE:2018-03-02 00:00:00 17 SEGMENT . . | Segments | Wall Motion| Hyperenhancement | Stress Perfusion | Interpretation | + + + + --+ + | Base Anterior| Normal/Hyper | None ||| | Base Anteroseptal| Normal/Hyper | None ||| | Base Inferoseptal| Normal/Hyper | None ||| | Base Inferior| Normal/Hyper | None ||| | Base Inferolateral | Normal/Hyper | None ||| | Base Anterolateral | Normal/Hyper | None ||| | Mid Anterior | Normal/Hyper | None ||| | Mid Anteroseptal | Normal/Hyper | None ||| | Mid Inferoseptal | Normal/Hyper | None ||| | Mid Inferior | Normal/Hyper | None ||| | Mid Inferolateral| Normal/Hyper | None ||| | Mid Anterolateral| Normal/Hyper | None ||| | Apical Anterior| Normal/Hyper | None ||| | Apical Septal| Normal/Hyper | None ||| | Apical Inferior| Normal/Hyper | None ||| | Apical Lateral | Normal/Hyper | None ||| | Tutwiler | Normal/Hyper | None ||| + + + + --+ + | RV Segments| Wall Motion| Hyperenhancement | Stress Perfusion | Interpretation | + + + + --+ + | RV Basal Anterior| Normal/Hyper | None ||| | RV Basal Inferior| Normal/Hyper | None ||| | RV Mid | Normal/Hyper | None ||| | RV Apical| Normal/Hyper | None ||| ' + + + --+ ' FINDINGS INFARCT/SCAR SIZE:0 % SCAN INFO GENERAL CONTRAST AGENT TYPE:[employer] LOT NUMBER:[id number] EXPIRATION DATE:2019-01-14 00:00:00 VOLUME ADMINISTERED:23 ml DOSAGE FOR 0.5M:0.15 mmol/kg SERUM CREATININE:0.9 sCr GFR:89.19 ml/min/1.73m^2 CREATININE DATE:2018-03-02 00:00:00 SEDATION SEDATION USED?:No PULSE SEQUENCE PULSE SEQUENCES:Single-Shot SSFP, IR SSFP - Single Shot, Single Shot BB KOLE, SSFP Cine, 3D MRA w and w/o contrast SETUP TYPE:Clinical INPATIENT:No INCOMPLETE SCAN:No REASON(S) FOR SCAN:Arrhythmia, PV Ablation REFERRING PHYSICIAN:Mahin Goodson MD ATTENDING PHYSICIAN:Mahin Goodson MD TECHNOLOGIST:RT Lianet BILLING Patient Account [id number] CPT Codes 75970, 57408 ICD10 Codes I48.0 Report generated by [employer], a product of [employer] Procedure Note Interface, Radiology Results In - 03/02/2018 6:09 PM CDT [facility] CMR Report Name: MADI TIWARI : 1950 Scan Date: 2018-03-02 13:40:03 Electronically signed by Vira Espitia M.D. 18:09:40 VITALS HEIGHT/WEIGHT HEIGHT: 72.00 in 182.88 cm WEIGHT: 167.00 lbs 75.75 kgs BSA/BP BSA: 1.97 m^2 SYSTOLIC BP: 187 mmHg DIASTOLIC BP: 84 mmHg HEART RATE/RHYTHM BASELINE HR: 66 BPM HEART RHYTHM: Sinus Rhythm SUMMARY LEFT VENTRICLE: LV wall thickness is normal. LV cavity size is normal. LV systolic function is normal. Quantitative LVEF 61%. There is no LV mass/thrombus. VIABILITY: LV infarct/scar size is 0%. RIGHT VENTRICLE: RV wall thickness is normal. RV cavity size is normal. RV systolic function is normal. Quantitative RVEF 55%. There is no RV mass/thrombus. VENTRICULAR SEPTUM: The ventricular septum is intact. ATRIAL SEPTUM: The interatrial septum is hypermobile. LEFT ATRIUM: LA is mildly enlarged. There is no LA mass/thrombus. PERICARDIUM: Pericardium is normal. There is no pericardial effusion. PLEURAL EFFUSION: There is no pleural effusion. AORTIC VALVE: Aortic valve is trileaflet. There is no aortic stenosis. MITRAL VALVE: Mitral valve leaflets are normal. There is no mitral stenosis. TRICUSPID VALVE: Tricuspid valve leaflets are normal. There is no tricuspid regurgitation. PULMONIC VALVE: Pulmonic valve leaflets are normal. There is no pulmonic stenosis. AORTIC ROOT: Dilated aortic root (3.9 cm) CHEST: Normal thoracic aorta with no evidence of aneurysm or dissection. Normal pulmonary artery diameters. VENOUS: Variant pulmonary venous anatomy with the presence of left common PV trunk. OTHER FINDINGS: Left renal cyst (1.8 cm x 1.3 cm) FINAL IMPRESSION: A. NORMAL LEFT AND RIGHT VENTRICULAR SIZE AND FUNCTION. B. NO LA OR SEAMUS CLOT. C. VARIANT PULMONARY VENOUS ANATOMY CORE EXAM MEASUREMENTS VOLUMETRIC ANALYSIS . . | | | LV | Reference | RV | Reference | +------+-------+------+ +------+ + | EDV | ml | 173 | (118-187) | 188 | (110-199) | | ESV | ml | 68 | (28-71) | 85 | (22-79) | | CO | L/min | 5.88 | | 5.77 | | | MASS | g | 110 | (112-177) | | | | SV | ml | 105 | (79-126) | 103 | (73-136) | | EF | % | 61 | (58-76) | 55 | (55-81) | '------+-------+------+ +------+ ' CARDIAC OUTPUT HR: 56 bpm LV DIMENSIONS WALL THICKNESS - ANTEROSEPTAL: 0.8 cm WALL THICKNESS - INFEROLATERAL: 0.8 cm LV HANSEL: 5.2 cm LV ESD: 3.3 cm LA DIMENSIONS (LV SYSTOLE) DIAMETER: 4.3 cm AREA - 2 CHAMBER: 31 cm^2 LENGTH - 2 CHAMBER: 6.1 cm AREA - 4 CHAMBER: 22 cm^2 LENGTH - 4 CHAMBER: 5.4 cm VOLUME: 107 ml AORTIC ROOT DIMENSIONS ANNULUS: 2.8 cm SINUS OF VALSALVA: 3.9 cm SINOTUBULAR JUNCTION: 3.0 cm EXTRACELLULAR VOLUME MEASUREMENT HEMATOCRIT: 36 % HEMATOCRIT DATE: 2018-03-02 00:00:00 17 SEGMENT . . | Segments | Wall Motion | Hyperenhancement | Stress Perfusion | Interpretation | + + + + +---- + | Base Anterior | Normal/Hyper | None | | | | Base Anteroseptal | Normal/Hyper | None | | | | Base Inferoseptal | Normal/Hyper | None | | | | Base Inferior | Normal/Hyper | None | | | | Base Inferolateral | Normal/Hyper | None | | | | Base Anterolateral | Normal/Hyper | None | | | | Mid Anterior | Normal/Hyper | None | | | | Mid Anteroseptal | Normal/Hyper | None | | | | Mid Inferoseptal | Normal/Hyper | None | | | | Mid Inferior | Normal/Hyper | None | | | | Mid Inferolateral | Normal/Hyper | None | | | | Mid Anterolateral | Normal/Hyper | None | | | | Apical Anterior | Normal/Hyper | None | | | | Apical Septal | Normal/Hyper | None | | | | Apical Inferior | Normal/Hyper | None | | | | Apical Lateral | Normal/Hyper | None | | | | Tutwiler | Normal/Hyper | None | | | + + + + +---- + | RV Segments | Wall Motion | Hyperenhancement | Stress Perfusion | Interpretation | + + + + +---- + | RV Basal Anterior | Normal/Hyper | None | | | | RV Basal Inferior | Normal/Hyper | None | | | | RV Mid | Normal/Hyper | None | | | | RV Apical | Normal/Hyper | None | | | ' + + + +---- ' FINDINGS INFARCT/SCAR SIZE: 0 % SCAN INFO GENERAL CONTRAST AGENT TYPE: [employer] LOT NUMBER: [id number] EXPIRATION DATE: 2019-01-14 00:00:00 VOLUME ADMINISTERED: 23 ml DOSAGE FOR 0.5M: 0.15 mmol/kg SERUM CREATININE: 0.9 sCr GFR: 89.19 ml/min/1.73m^2 CREATININE DATE: 2018-03-02 00:00:00 SEDATION SEDATION USED?: No PULSE SEQUENCE PULSE SEQUENCES: Single-Shot SSFP, IR SSFP - Single Shot, Single Shot BB KOLE, SSFP Cine, 3D MRA w and w/o contrast SETUP TYPE: Clinical INPATIENT: No INCOMPLETE SCAN: No REASON(S) FOR SCAN: Arrhythmia, PV Ablation REFERRING PHYSICIAN: Mahin Goodson MD ATTENDING PHYSICIAN: Mahin Goodson MD TECHNOLOGIST: Shravan Boyer RT BILLING Patient Account [id number] CPT Codes 02782, 30425 ICD10 Codes I48.0 Report generated by [employer], a product of [employer] Performing Organization Address City/[facility] Phone Number [facility] [address] [place] [address] POC panel (03/02/2018 1:37 PM CDT) POC creatinine 0.9 0.7 - 1.2 [facility] DEPARTMENT OF mg/dl PATHOLOGY AND GENOMIC MEDICINE POC hematocrit 36 (L) 41 - 51 % [facility] DEPARTMENT OF Comment: PATHOLOGY AND Meter ID: [id number] GENOMIC MEDICINE Social Media Strategist: Chuy Olivia Specimen Performing Organization Address City/[facility] Phone Number [facility] DEPARTMENT OF PATHOLOGY AND [address] [place] [address] GENOMIC MEDICINE after 12/18/2017 Insurance Payer Benefit Plan / Subscriber ID Effective Dates Phone Address Type Group MEDICARE MEDICARE PART A xxxxxxxxxxx 2014-Present [place], [place] Medicare AND B BCBS BCBS PAR/TRAD xxxxxxxxxxxx 2014-Present Indemnity PLAN Advance Directives Patient has advance care planning documents on file. For more information, please contact:[facility] [place] [phone]"
[2018-12-19 23:46] LABS: Absolute Lymphocytes (CBC) 0.7 K/uL (0.7-4.9); Absolute Monocytes 0.4 K/uL (0.1-1.3); Absolute Neutrophil 2.5 K/uL (1.8-8.0); Basophils % 0.8 % (0-1.3); Hematocrit 33.8 % (39.6-49.0); Lymphocytes % 18.9 % (15.3-44.8); MPV 8.1 fL (7.6-11.3); Monocytes % 11.7 % (3.3-12.3); RBC Red Blood Cell Count 4.16 M/uL (4.33-5.43)
[2018-12-20 00:07] LABS: BUN Blood Urea Nitrogen 20 mg/dL (7-18); Bicarbonate 29 mmol/L (21-32); Glucose Level 109 mg/dL (74-106); Magnesium 2.1 mg/dL (1.8-2.4); Potassium 3.5 mmol/L (3.5-5.1); Sodium Level 145 mmol/L (136-145); Troponin (Emerg Dept Use Only) < 0.02 ng/mL (0.0-0.045)
--- NOTE | 2018-12-20 01:00 | ER ---
Nurse's Notes [facility] Name: Madi Tiwari III Age: 68 yrs Sex: Male : 1950 Arrival Date: 12/19/2018 Time: 23:18 Bed 7 Private MD: Diagnosis: Palpitations Presentation: 12/19 23:27 Presenting complaint: EMS states: Called for patient having palpitations x 2 hours; lp1 States doing some yard work earlier today and may have overexerted himself; Denies any chest pain, N/V; Hx of Afib, HR 130's per EMS. Transition of care: patient was not received from another setting of care. Onset of symptoms was December 19, 2018 at 21:00. Risk Assessment: Do you want to hurt yourself or someone else? Patient reports no desire to harm self or others. Initial Sepsis Screen: Does the patient meet any 2 criteria? No. Patient's initial sepsis screen is negative. Does the patient have a suspected source of infection? No. Patient's initial sepsis screen is negative. Care prior to arrival: None. 23:27 Method Of Arrival: EMS: [facility] lp1 23:27 Acuity: ONDINA 2 lp1 Historical: - Allergies: 23:36 No Known Allergies; lp1 - Home Meds: 23:36 Unithroid 88 mcg oral tab once daily [Active]; Eliquis 5 mg oral tab 1 tab 2 times per lp1 day [Active]; clonazepam 1 mg oral tab daily [Active]; Miralax 17 gram oral pwpk once daily [Active]; Colace 100 mg oral cap 1 cap once daily [Active]; furosemide 40 mg Oral tab 1 tab 2 times per day [Active]; potassium chloride 20 mEq Oral TbER 1 tab 2 times per day [Active]; losartan 25 mg oral tab 2 times per day [Active]; Remicade intravenous intravenous [Active]; - PMHx: 23:36 neuropathy; Anxiety; Crohn's; Anemia; Hypothyroidism; osteoarthristis; Hypertension; lp1 Atrial Fib; - PSHx: 23:36 Partial small intestine removal; Cardiac ablasion; lp1 - Immunization history:: Adult Immunizations up to date. - Social history:: Smoking status: Patient/guardian denies using tobacco. - Ebola Screening: : No symptoms or risks identified at this time. Screenin:36 Abuse screen: Denies threats or abuse. Denies injuries from another. Nutritional lp1 screening: No deficits noted. Tuberculosis screening: No symptoms or risk factors identified. 12/20 00:00 Fall Risk IV access (20 points). Total Rowell Fall Scale indicates No Risk (0-24 pts). rr5 Assessment: 12/19 23:30 General: Appears in no apparent distress. uncomfortable, Behavior is calm, cooperative, rr5 appropriate for age. Pain: Denies pain. Neuro: Level of Consciousness is awake, alert, obeys commands, Oriented to person, place, time, situation, Appropriate for age. 23:30 Cardiovascular: Reports palpitations, for 2 hours, during yard work Capillary refill < rr5 3 seconds Patient's skin is warm and dry. Respiratory: Airway is patent Respiratory effort is even, unlabored, Respiratory pattern is regular, symmetrical. GI: No signs and/or symptoms were reported involving the gastrointestinal system. : No signs and/or symptoms were reported regarding the genitourinary system. EENT: No signs and/or symptoms were reported regarding the EENT system. Derm: Skin is intact, Skin temperature is warm. Musculoskeletal: Capillary refill < 3 seconds, Range of motion: intact in all extremities. 23:30 Musculoskeletal: Swelling present in right leg. rr5 12/20 00:00 Reassessment: Patient appears in no apparent distress at this time. Patient and/or rr5 family updated on plan of care and expected duration. Pain level reassessed. Patient is alert, oriented x 3, equal unlabored respirations, skin warm/dry/pink. awaiting for results. Patient states symptoms have improved. 01:00 Reassessment: Patient appears in no apparent distress at this time. asleep on bed rr5 comfortably. no complaints made. Patient denies pain at this time. 01:55 Reassessment: Patient appears in no apparent distress at this time. patient requested rr5 before he goes home to have some medicine for his heart rate to goes down. Ed provider aware with order made and carried out. 02:26 Reassessment: Patient appears in no apparent distress at this time. Patient and/or rr5 family updated on plan of care and expected duration. Pain level reassessed. Patient is alert, oriented x 3, equal unlabored respirations, skin warm/dry/pink. discharge instruction given and explained without complaints made. Patient states feeling better. Patient states symptoms have improved. Vital Signs: 12/19 23:29 BP 149 / 92; Pulse 123; Resp 12; Temp 97.8(O); Pulse Ox 100% on R/A; Weight 72.57 kg; lp1 Height 6 ft. 0 in. (182.88 cm); Pain 0/10; 12/20 00:00 BP 122 / 69; Pulse 96; Resp 17; Pulse Ox 99% on R/A; rr5 01:00 BP 120 / 74; Pulse 95; Resp 17; Pulse Ox 99% on R/A; rr5 01:55 BP 130 / 71 Supine; Pulse 95; Resp 16; Temp 97.8; Pulse Ox 100% on R/A; rr5 01:56 BP 132 / 77 Sitting; Pulse 96; Resp 17; Pulse Ox 100% ; rr5 01:57 BP 117 / 77 Standing; Pulse 102; Resp 18; Pulse Ox 99% on R/A; rr5 02:20 BP 122 / 77; Pulse 94; Resp 16; Temp 97.8; Pulse Ox 99% on R/A; rr5 12/19 23:29 Body Mass Index 21.70 (72.57 kg, 182.88 cm) lp1 ED Course: 12/19 23:18 Patient arrived in ED. ds1 23:27 Aayush Cadet MD is Attending Physician. gs 23:29 Triage completed. lp1 23:29 Arm band placed on left wrist. lp1 23:30 Initial lab(s) drawn, by me, sent to lab. Inserted saline lock: 20 gauge in right rr5 forearm, using aseptic technique. Blood collected. 23:36 Torey Jacobs, SHERLYN is Primary Nurse. rr5 23:36 Patient has correct armband on for positive identification. Placed in gown. Bed in low lp1 position. Call light in reach. youth nutritional monitor on. Pulse ox on. NIBP on. 23:54 XRAY Chest (1 view) In Process Unspecified. EDMS 12/20 02:30 No provider procedures requiring assistance completed. IV discontinued, intact, rr5 bleeding controlled, No redness/swelling at site. Pressure dressing applied. Administered Medications: 01:55 Drug: Metoprolol 25 mg Route: PO; rr5 02:30 Follow up: Response: No adverse reaction rr5 Outcome: 01:00 Discharge ordered by . 02:30 Discharged to home via wheelchair, with family. rr5 02:30 Condition: stable 02:30 Discharge instructions given to patient, family, Instructed on discharge instructions, follow up and referral plans. Demonstrated understanding of instructions, follow-up care. 02:32 Patient left the ED. rr5 Signatures: Dispatcher [employer] EDVT Linette Espinosa ds1 Britta Kauffman RN RN lp1 Aayush Cadet MD MD Torey Jacobs RN RN rr5
--- NOTE | 2018-12-20 01:01 | EDPHYS ---
Physician Documentation [facility] Name: Madi Tiwari III Age: 68 yrs Sex: Male : 1950 Arrival Date: 12/19/2018 Time: 23:18 Bed 7 Private MD: ED Physician Aayush Cadte HPI: 12/20 00:54 This 68 yrs old Male presents to ER via EMS with complaints of Palpitations. gs 00:54 The patient presents with a history of irregular heart beat, heart racing. Context: The gs symptoms occur at rest. Onset: The symptoms/episode began/occurred yesterday. Duration: The patient or guardian reports a single episode, that is now resolved. Modifying factors: The symptoms are aggravated by anxiety, The symptoms are alleviated by nothing. Associated signs and symptoms: Pertinent negatives: chest pain, SOB. Severity of symptoms: At their worst the symptoms were severe in the emergency department the symptoms have resolved. The patient has experienced similar episodes in the past, several times. The patient has not recently seen a physician. Historical: - Allergies: 12/19 23:36 No Known Allergies; lp1 - Home Meds: 23:36 Unithroid 88 mcg oral tab once daily [Active]; Eliquis 5 mg oral tab 1 tab 2 times per lp1 day [Active]; clonazepam 1 mg oral tab daily [Active]; Miralax 17 gram oral pwpk once daily [Active]; Colace 100 mg oral cap 1 cap once daily [Active]; furosemide 40 mg Oral tab 1 tab 2 times per day [Active]; potassium chloride 20 mEq Oral TbER 1 tab 2 times per day [Active]; losartan 25 mg oral tab 2 times per day [Active]; Remicade intravenous intravenous [Active]; - PMHx: 23:36 neuropathy; Anxiety; Crohn's; Anemia; Hypothyroidism; osteoarthristis; Hypertension; lp1 Atrial Fib; - PSHx: 23:36 Partial small intestine removal; Cardiac ablasion; lp1 - Immunization history:: Adult Immunizations up to date. - Social history:: Smoking status: Patient/guardian denies using tobacco. - Ebola Screening: : No symptoms or risks identified at this time. ROS: 12/20 00:54 All other systems are negative. gs Exam: 00:54 Head/Face: Normocephalic, atraumatic. Eyes: Pupils equal round and reactive to light, gs extra-ocular motions intact. Lids and lashes normal. Conjunctiva and sclera are non-icteric and not injected. Cornea within normal limits. Periorbital areas with no swelling, redness, or edema. ENT: Nares patent. No nasal discharge, no septal abnormalities noted. Tympanic membranes are normal and external auditory canals are clear. Oropharynx with no redness, swelling, or masses, exudates, or evidence of obstruction, uvula midline. Mucous membranes moist. Neck: Trachea midline, no thyromegaly or masses palpated, and no cervical lymphadenopathy. Supple, full range of motion without nuchal rigidity, or vertebral point tenderness. No Meningismus. Chest/axilla: Normal chest wall appearance and motion. Nontender with no deformity. No lesions are appreciated. Cardiovascular: Regular rate and rhythm with a normal S1 and S2. No gallops, murmurs, or rubs. Normal PMI, no JVD. No pulse deficits. Respiratory: Lungs have equal breath sounds bilaterally, clear to auscultation and percussion. No rales, rhonchi or wheezes noted. No increased work of breathing, no retractions or nasal flaring. Abdomen/GI: Soft, non-tender, with normal bowel sounds. No distension or tympany. No guarding or rebound. No evidence of tenderness throughout. Back: No spinal tenderness. No costovertebral tenderness. Full range of motion. Skin: Warm, dry with normal turgor. Normal color with no rashes, no lesions, and no evidence of cellulitis. MS/ Extremity: Pulses equal, no cyanosis. Neurovascular intact. Full, normal range of motion. Neuro: Awake and alert, GCS 15, oriented to person, place, time, and situation. Cranial nerves II-XII grossly intact. Motor strength 5/5 in all extremities. Sensory grossly intact. Cerebellar exam normal. Normal gait. 00:54 Constitutional: The patient appears alert, awake. 00:54 ECG was reviewed by the Attending Physician. Vital Signs: 12/19 23:29 BP 149 / 92; Pulse 123; Resp 12; Temp 97.8(O); Pulse Ox 100% on R/A; Weight 72.57 kg; lp1 Height 6 ft. 0 in. (182.88 cm); Pain 0/10; 12/20 00:00 BP 122 / 69; Pulse 96; Resp 17; Pulse Ox 99% on R/A; rr5 01:00 BP 120 / 74; Pulse 95; Resp 17; Pulse Ox 99% on R/A; rr5 01:55 BP 130 / 71 Supine; Pulse 95; Resp 16; Temp 97.8; Pulse Ox 100% on R/A; rr5 01:56 BP 132 / 77 Sitting; Pulse 96; Resp 17; Pulse Ox 100% ; rr5 01:57 BP 117 / 77 Standing; Pulse 102; Resp 18; Pulse Ox 99% on R/A; rr5 02:20 BP 122 / 77; Pulse 94; Resp 16; Temp 97.8; Pulse Ox 99% on R/A; rr5 12/19 23:29 Body Mass Index 21.70 (72.57 kg, 182.88 cm) lp1 MDM: 12/19 23:35 Patient medically screened. 12/20 00:54 Data reviewed: vital signs, nurses notes, lab test result(s), EKG, radiologic studies. Counseling: I had a detailed discussion with the patient and/or guardian regarding: the historical points, exam findings, and any diagnostic results supporting the discharge/admit diagnosis, lab results, radiology results, the need for outpatient follow up. Response to treatment: the patient's symptoms have markedly improved after treatment, and as a result, I will discharge patient. 01:00 Differential diagnosis: arrythmia, dehydration, stress disorder, probable episode afib gs despite ablation. 12/19 23:36 Order name: Basic Metabolic Panel; Complete Time: 00:09 12/19 23:36 Order name: CBC with Diff; Complete Time: 00:09 12/19 23:36 Order name: Magnesium; Complete Time: 00:09 12/19 23:36 Order name: Troponin (emerg Dept Use Only); Complete Time: 00:09 12/19 23:36 Order name: XRAY Chest (1 view) 12/19 23:36 Order name: EKG; Complete Time: 23:37 12/19 23:36 Order name: Cardiac monitoring; Complete Time: 23:37 12/19 23:36 Order name: EKG - Nurse/Tech; Complete Time: 23:37 12/19 23:36 Order name: IV Saline Lock; Complete Time: 23:37 12/19 23:36 Order name: Labs collected and sent; Complete Time: 23:37 12/19 23:36 Order name: O2 Per Protocol; Complete Time: 23:37 12/19 23:36 Order name: O2 Sat Monitoring; Complete Time: 23:37 EC:54 Rate is 99 beats/min. Rhythm is regular. [place] interval is normal. QRS interval is normal. gs T waves are Normal. T waves are Inverted in lead aVL. Clinical impression: NSR w/ Non-specific ST/T Changes and Abnormal EKG without significant change. Interpreted by me. Administered Medications: 01:55 Drug: Metoprolol 25 mg Route: PO; rr5 02:30 Follow up: Response: No adverse reaction rr5 Disposition: 12/20/18 01:00 Discharged to Home. Impression: Palpitations. - Condition is Stable. - Discharge Instructions: Atrial Fibrillation, Palpitations. - Medication Reconciliation Form, Thank You Letter, Antibiotic Education, Prescription Opioid Use form. - Follow up: Private Physician; When: 1 - 2 days; Reason: Re-evaluation by your physician. Signatures: Dispatcher [employer] EDMS Britta Kauffman RN RN lp1 Aayush Cadet MD MD Torey Jacobs RN RN rr5 Corrections: (The following items were deleted from the chart) 02:32 01:00 12/20/2018 01:00 Discharged to Home. Impression: Palpitations. Condition is rr5 Stable. Forms are Medication Reconciliation Form, Thank You Letter, Antibiotic Education, Prescription Opioid Use. Follow up: Private Physician; When: 1 - 2 days; Reason: Re-evaluation by your physician. gs
[2018-12-20] MEDS ORDERED: METOPROLOL TAR 25 MG TAB ONE (02:05)
[2018-12-20 02:42] VITALS: TEMP 97.8
[2018-12-20 02:48] VITALS: O2SAT 99
[2018-12-20 02:49] VITALS: BP 122/77
--- NOTE | 2018-12-20 07:41 | EKG ---
Test Date: 2018-12-19 Test Time: 23:23:37 Telegraph Printer Mechanic: RR MEASUREMENT RESULTS: Intervals: Rate: 99 [place]: 174 QRSD: 94 QT: 334 QTc: 428 [place]: P: [place]: 174 QRS: -1 T: 69 INTERPRETIVE STATEMENTS: Sinus rhythm with premature atrial complexes Otherwise normal ECG Compared to ECG 01/05/2017 09:13:17 Atrial premature complex(es) now present Electronically Signed On 12-20-18 07:40:45 CDT by Nikita Martin
--- NOTE | 2018-12-20 08:13 | RAD REPORT ---
EXAM DESCRIPTION: RAD - Chest Single View - 12/19/2018 11:54 pm CLINICAL HISTORY: MALAISE Chest pain. COMPARISON: Abdomen 1 View (KUB) dated 02/04/2016; CHEST SINGLE VIEW dated 05/01/2012; Outpt Chest Pa /Lat (2 Views) dated 08/09/2016 FINDINGS: Portable technique limits examination quality. The lungs are emphysematous but grossly clear. The heart is normal in size. No displaced fractures. IMPRESSION: Mild COPD.
== END 2018-12-20 02:32 | disposition home or self-care (01) ==
LOC: ER 23:15
DX: R00.2 Palpitations (principal); I10 Essential (primary) hypertension; E03.9 Hypothyroidism, unspecified; F41.9 Anxiety disorder, unspecified; I48.91 Unspecified atrial fibrillation; Z79.01 Long term (current) use of anticoagulants
CPT/HCPCS: 36415; 71045; 80048; 83735; 84484; 85025; 93005; 99285

== ENCOUNTER 2020-09-01 14:39 | Emergency (ER) | payer OTHER, BC ==
--- NOTE | 2020-09-01 15:56 | RAD REPORT ---
EXAM DESCRIPTION: CT - Head Brain Wo Cont - 09/01/2020 3:47 pm CLINICAL HISTORY: SYNCOPE Headache, drowsiness COMPARISON: HEAD BRAIN W O CONTRAST dated 05/01/2012; HEAD BRAIN W O CONTRAST dated 05/22/2004 TECHNIQUE: All CT scans are performed using dose optimization technique as appropriate and may inclu de automated exposure control or mA/KV adjustment according to patient size. FINDINGS: No intracranial hemorrhage, hydrocephalus or extra-axial fluid collection.No areas of brai n edema or evidence of midline shift. The paranasal sinuses and mastoids are clear. The calvarium is intact. IMPRESSION: No acute intracranial abnormality.
[2020-09-01 16:00] LABS: Absolute Lymphocytes (CBC) 0.5 K/uL (0.7-4.9); Basophils % 0.5 % (0-1.3); Hematocrit 37.7 % (39.6-49.0); Lymphocytes % 7.7 % (15.3-44.8); MPV 8.1 fL (7.6-11.3); RBC Red Blood Cell Count 3.95 M/uL (4.33-5.43)
[2020-09-01 16:06] LABS: Protime INR 1.03
[2020-09-01 16:18] LABS: ALT/SGPT 18 U/L (12-78); AST/SGOT 16 U/L (15-37); Albumin 3.6 g/dL (3.4-5.0); Alkaline Phosphatase 119 U/L (45-117); BUN Blood Urea Nitrogen 15 mg/dL (7-18); Bicarbonate 28 mmol/L (21-32); Bilirubin Direct 0.1 mg/dL (0-0.2); Bilirubin Total 0.5 mg/dL (0.2-1.0); Creatine Phosphokinase 53 U/L (39-308); Glucose Level 128 mg/dL (74-106); Lipase 72 U/L (73-393); Magnesium 2.2 mg/dL (1.8-2.4); Potassium 3.6 mmol/L (3.5-5.1); Protein, Total 6.5 g/dL (6.4-8.2); Sodium Level 143 mmol/L (136-145); Troponin (Emerg Dept Use Only) < 0.02 ng/mL (0.0-0.045)
[2020-09-01 16:33] LABS: Urine Blood TRACE (NEG); Urine Glucose NEGATIVE (NEG); Urine Protein NEGATIVE (NEG); Urine Specific Gravity 1.025 (1.005-1.030); Urine pH 7.5 (5.0-7.0)
[2020-09-01] MEDS ORDERED: MECLIZINE HCL 12.5 MG TAB ONE (17:03)
[2020-09-01] MEDS ORDERED: NA CHLORIDE 0.9% 1,000 ML ONE (17:03)
--- NOTE | 2020-09-01 17:07 | ER ---
Nurse's Notes [facility] Name: Madi Tiwari III Age: 69 yrs Sex: Male : 1950 Arrival Date: 09/01/2020 Time: 14:49 Bed 15 Private MD: Diagnosis: Dizziness and giddiness;Vertigo of central origin, unspecified ear Presentation: 09/01 14:50 Chief complaint: EMS states: pt coming from home. c/o sob, weakness, dizziness, and zb tremors started suddenly today . history of a-fib, a-flutter. denies pain. VSS. Coronavirus screen: At this time, the client does not indicate any symptoms associated with coronavirus-19. Ebola Screen: No symptoms or risks identified at this time. Initial Sepsis Screen: Does the patient meet any 2 criteria? No. Patient's initial sepsis screen is negative. Does the patient have a suspected source of infection? No. Patient's initial sepsis screen is negative. Risk Assessment: Do you want to hurt yourself or someone else? Patient reports no desire to harm self or others. 14:50 Acuity: ONDINA 3 zb 14:50 Method Of Arrival: EMS: [facility] zb 17:44 Onset of symptoms was September 01, 2020 at 17:44. zb Triage Assessment: 15:50 General: Appears in no apparent distress. uncomfortable, Behavior is calm, cooperative, zb appropriate for age. Pain: Denies pain. EENT: cervical adenopathy noted. . Neuro: Level of Consciousness is awake, alert, obeys commands, Oriented to person, place, time, situation, Clutch Mechanic are equal bilaterally Speech is normal, Facial symmetry appears normal, Pupils are PERRLA, Intact. Neuro: Reports dizziness, since today a syncopal episode weakness. Cardiovascular: Capillary refill < 3 seconds Patient's skin is warm and dry. Respiratory: Airway is patent Respiratory effort is even, unlabored, Respiratory pattern is regular, symmetrical. Respiratory: Breath sounds are diminished bilaterally. GI: Abdomen is round non-distended, Bowel sounds present X 4 quads. : No signs and/or symptoms were reported regarding the genitourinary system. Derm: Skin is intact, is healthy with good turgor, Skin is dry, Skin is normal, Skin temperature is warm. Musculoskeletal: Range of motion: intact in all extremities. Historical: - Allergies: 14:54 No Known Allergies; zb - Home Meds: 14:54 clonazepam 1 mg Oral tab daily [Active]; Colace 100 mg Oral cap 1 cap once daily zb [Active]; Eliquis 5 mg Oral tab 1 tab 2 times per day [Active]; furosemide 40 mg Oral tab 1 tab 2 times per day [Active]; losartan 25 mg Oral tab 2 times per day [Active]; Miralax 17 gram Oral pwpk once daily [Active]; potassium chloride 20 mEq Oral TbER 1 tab 2 times per day [Active]; - PMHx: 14:54 Anemia; Anxiety; Atrial Fib; Crohn's; Hypertension; Hypothyroidism; neuropathy; zb osteoarthristis; - PSHx: 14:54 Partial small intestine removal; Cardiac ablasion; zb - Immunization history:: Adult Immunizations up to date. - Social history:: Smoking status: Patient denies any tobacco usage or history of. Screenin:19 Abuse screen: Denies threats or abuse. Denies injuries from another. Nutritional zb screening: No deficits noted. Tuberculosis screening: No symptoms or risk factors identified. Fall Risk No secondary diagnosis (0 pts). IV access (20 points). Ambulatory Aid- None/Bed Rest/Nurse Assist (0 pts). Gait- Normal/Bed Rest/Wheelchair (0 pts) Mental Status- Oriented to own ability (0 pts). Total Rowell Fall Scale indicates No Risk (0-24 pts). Assessment: 16:00 Reassessment: Patient appears in no apparent distress at this time. Patient and/or zb family updated on plan of care and expected duration. Pain level reassessed. Patient is alert, oriented x 3, equal unlabored respirations, skin warm/dry/pink. no changes at this time. patient sitting up in bed. 17:08 Reassessment: d/c pending completion of IV fluids. zb 17:42 Reassessment: d/c instructions given. pt able to ambulated. zb 17:43 Neuro: Level of Consciousness is awake, alert, obeys commands. Cardiovascular: Rhythm zb is regular. Vital Signs: 14:50 BP 142 / 63; Pulse 82; Resp 16; Temp 97.6; Pulse Ox 100% ; Weight 76.2 kg; Height 6 ft. zb 0 in. (182.88 cm); Pain 0/10; 16:18 BP 127 / 66; Pulse 77; Resp 18; Pulse Ox 100% on R/A; zb 17:09 BP 124 / 59; Pulse 76; Resp 16; Pulse Ox 99% on R/A; zb 14:50 Body Mass Index 22.78 (76.20 kg, 182.88 cm) zb ED Course: 14:49 Patient arrived in ED. zb 14:52 Tj Crowe MD is Attending Physician. tw4 14:53 Triage completed. zb 15:25 Jade Segura, RN is Primary Nurse. zb 15:46 CT Head Brain wo Cont In Process Unspecified. EDMS 16:19 Inserted saline lock: 20 gauge in right antecubital area, using aseptic technique. zb 16:20 Patient has correct armband on for positive identification. monitor worker on. Pulse zb ox on. NIBP on. Door closed. Noise minimized. Warm blanket given. 16:20 Arm band placed on right wrist. zb 17:43 No provider procedures requiring assistance completed. IV discontinued, intact, zb bleeding controlled, No redness/swelling at site. Pressure dressing applied. Administered Medications: 16:54 Drug: NS 0.9% 1000 ml Route: IV; Rate: 1 bolus; Site: right antecubital; zb 17:45 Follow up: Response: No adverse reaction; IV Status: Completed infusion; IV Intake: zb 1000ml 16:54 Drug: Meclizine 25 mg Route: PO; zb 17:10 Follow up: Response: No adverse reaction zb Intake: 17:45 IV: 1000ml; Total: 1000ml. zb Outcome: 17:07 Discharge ordered by . tw4 17:44 Discharged to home via wheelchair. zb 17:44 Condition: stable 17:44 Condition: good 17:44 Discharge instructions given to patient, Instructed on discharge instructions, follow up and referral plans. medication usage, Demonstrated understanding of instructions, follow-up care, medications, Prescriptions given X 2. 17:51 Patient left the ED. zb Signatures: Dispatcher [employer] EDCO Tj Crowe MD MD tw4 Jade Segura, SHERLYN RN zb
--- NOTE | 2020-09-01 17:08 | EDPHYS ---
Physician Documentation [facility] Name: Madi Tiwari III Age: 69 yrs Sex: Male : 1950 Arrival Date: 09/01/2020 Time: 14:49 Bed 15 Private MD: ED Physician Tj Crowe HPI: 09/01 15:04 This 69 yrs old Male presents to ER via EMS with complaints of Syncope, tw4 General Weakness. 15:15 The patient has experienced near-syncope, felt dizzy, felt generally weak, felt like tw4 heart was pounding. Onset: The symptoms/episode began/occurred today. Duration: This was a single episode. Associated injury: The patient did not suffer any apparent associated injury. The patient has not experienced similar symptoms in the past. Historical: - Allergies: 14:54 No Known Allergies; zb - Home Meds: 14:54 clonazepam 1 mg Oral tab daily [Active]; Colace 100 mg Oral cap 1 cap once daily zb [Active]; Eliquis 5 mg Oral tab 1 tab 2 times per day [Active]; furosemide 40 mg Oral tab 1 tab 2 times per day [Active]; losartan 25 mg Oral tab 2 times per day [Active]; Miralax 17 gram Oral pwpk once daily [Active]; potassium chloride 20 mEq Oral TbER 1 tab 2 times per day [Active]; - PMHx: 14:54 Anemia; Anxiety; Atrial Fib; Crohn's; Hypertension; Hypothyroidism; neuropathy; zb osteoarthristis; - PSHx: 14:54 Partial small intestine removal; Cardiac ablasion; zb - Immunization history:: Adult Immunizations up to date. - Social history:: Smoking status: Patient denies any tobacco usage or history of. ROS: 15:15 Neuro: Positive for dizziness, syncope, weakness. tw4 15:15 Constitutional: Negative for fever, chills, and weight loss, Cardiovascular: Negative tw4 for chest pain, palpitations, and edema, Respiratory: Negative for shortness of breath, cough, wheezing, and pleuritic chest pain, Abdomen/GI: Negative for abdominal pain, nausea, vomiting, diarrhea, and constipation, Back: Negative for injury and pain, MS/Extremity: Negative for injury and deformity, Skin: Negative for injury, rash, and discoloration. Exam: 15:15 Constitutional: This is a well developed, well nourished patient who is awake, alert, tw4 and in no acute distress. Head/Face: Normocephalic, atraumatic. Chest/axilla: Normal chest wall appearance and motion. Nontender with no deformity. No lesions are appreciated. Cardiovascular: Regular rate and rhythm with a normal S1 and S2. No gallops, murmurs, or rubs. Normal PMI, no JVD. No pulse deficits. Respiratory: Lungs have equal breath sounds bilaterally, clear to auscultation and percussion. No rales, rhonchi or wheezes noted. No increased work of breathing, no retractions or nasal flaring. Abdomen/GI: Soft, non-tender, with normal bowel sounds. No distension or tympany. No guarding or rebound. No evidence of tenderness throughout. Back: No spinal tenderness. No costovertebral tenderness. Full range of motion. MS/ Extremity: Pulses equal, no cyanosis. Neurovascular intact. Full, normal range of motion. Neuro: Awake and alert, GCS 15, oriented to person, place, time, and situation. Cranial nerves II-XII grossly intact. Motor strength 5/5 in all extremities. Sensory grossly intact. Cerebellar exam normal. Normal gait. Vital Signs: 14:50 BP 142 / 63; Pulse 82; Resp 16; Temp 97.6; Pulse Ox 100% ; Weight 76.2 kg; Height 6 ft. zb 0 in. (182.88 cm); Pain 0/10; 16:18 BP 127 / 66; Pulse 77; Resp 18; Pulse Ox 100% on R/A; zb 17:09 BP 124 / 59; Pulse 76; Resp 16; Pulse Ox 99% on R/A; zb 14:50 Body Mass Index 22.78 (76.20 kg, 182.88 cm) zb MDM: 14:52 Patient medically screened. 09/01 14:53 Order name: Basic Metabolic Panel; Complete Time: 16:27 09/01 16:43 Interpretation: Normal except: GLUC 128. 09/01 14:53 Order name: CBC with Diff; Complete Time: 16:13 09/01 16:56 Interpretation: Normal except: RBC 3.95; HGB 12.7; HCT 37.7; MCV 95.5; MCH 32.1; PEDRO% tw4 83.5; LYM% 7.7; LYMA 0.5. 09/01 14:53 Order name: Ckmb; Complete Time: 16:27 09/01 14:53 Order name: CPK; Complete Time: 16:27 09/01 14:53 Order name: Hepatic Function; Complete Time: 16:27 09/01 16:44 Interpretation: Normal except: ALK 119. 09/01 14:53 Order name: Lipase; Complete Time: 16:27 09/01 16:44 Interpretation: Within normal limits: LIP 72. 09/01 14:53 Order name: CT Head Brain wo Cont; Complete Time: 16:13 09/01 14:53 Order name: Magnesium; Complete Time: 16:27 09/01 14:53 Order name: Protime (+inr); Complete Time: 16:13 09/01 14:53 Order name: Ptt, Activated; Complete Time: 16:09/01 14:53 Order name: Troponin (emerg Dept Use Only); Complete Time: 16:27 09/01 16:04 Order name: Urine Dipstick--Ancillary (enter results); Complete Time: 16:43 09/01 16:43 Interpretation: Normal except: UBLD TRACE; UPH 7.5. 09/01 14:53 Order name: EKG; Complete Time: 14:54 09/01 14:53 Order name: Cardiac monitoring; Complete Time: 15:25 09/01 14:53 Order name: EKG - Nurse/Tech; Complete Time: 15:25 09/01 14:53 Order name: IV Saline Lock; Complete Time: 15:25 09/01 14:53 Order name: Labs collected and sent; Complete Time: 15:25 09/01 14:53 Order name: NPO; Complete Time: 15:25 09/01 14:53 Order name: O2 Per Protocol; Complete Time: 15:25 09/01 14:53 Order name: O2 Sat Monitoring; Complete Time: 15:25 09/01 14:53 Order name: Urine Dipstick-Ancillary (obtain specimen); Complete Time: 15:25 tw4 EC:15 Rate is 76 beats/min. Rhythm is regular. QRS [place] is Normal. [place] interval is normal. QRS tw4 interval is normal. QT interval is normal. No Q waves. T waves are Normal. No ST changes noted. Clinical impression: Normal ECG. Interpreted by me. Reviewed by me. Administered Medications: 16:54 Drug: NS 0.9% 1000 ml Route: IV; Rate: 1 bolus; Site: right antecubital; zb 17:45 Follow up: Response: No adverse reaction; IV Status: Completed infusion; IV Intake: zb 1000ml 16:54 Drug: Meclizine 25 mg Route: PO; zb 17:10 Follow up: Response: No adverse reaction zb Disposition: 09/01/20 17:07 Discharged to Home. Impression: Dizziness and giddiness, Vertigo of central origin, unspecified ear. - Condition is Stable. - Discharge Instructions: Dizziness, Near-Syncope, Vertigo. - Prescriptions for Meclizine 25 mg Oral Tablet - take 1 tablet by ORAL route every 8 hours As needed; 30 tablet. Zofran 4 mg Oral Tablet - take 1 tablet by ORAL route every 12 hours As needed; 6 tablet. - Medication Reconciliation Form, Thank You Letter, Antibiotic Education, Prescription Opioid Use form. - Follow up: Private Physician; When: Upon discharge from the Emergency Department; Reason: Recheck today's complaints, Continuance of care, Re-evaluation by your physician. - Problem is new. - Symptoms have improved. Signatures: Dispatcher [employer] EDCA Tj Crowe MD MD tw4 Jade Segura RN RN zb Corrections: (The following items were deleted from the chart) 16:56 16:43 Normal except: RBC 3.95; HGB 12.7; HCT 37.7; MCV 95.5; MCH 32.1. tw4 tw4 17:51 17:07 09/01/2020 17:07 Discharged to Home. Impression: Dizziness and giddiness; Vertigo zb of central origin, unspecified ear. Condition is Stable. Forms are Medication Reconciliation Form, Thank You Letter, Antibiotic Education, Prescription Opioid Use. Follow up: Private Physician; When: Upon discharge from the Emergency Department; Reason: Recheck today's complaints, Continuance of care, Re-evaluation by your physician. Problem is new. Symptoms have improved. tw4
[2020-09-01 17:56] VITALS: TEMP 97.6
[2020-09-01 17:59] VITALS: BP 124/59; O2SAT 99
--- NOTE | 2020-09-02 10:01 | EKG ---
Test Date: 2020-09-01 Test Time: 15:20:11 Client Consultant: MEG MEASUREMENT RESULTS: Intervals: Rate: 76 [place]: 186 QRSD: 96 QT: 372 QTc: 418 [place]: P: 54 [place]: 186 QRS: -17 T: 54 INTERPRETIVE STATEMENTS: Normal sinus rhythm Normal ECG Compared to ECG 12/19/2018 23:23:37 Atrial premature complex(es) no longer present Electronically Signed On 09-02-20 09:59:32 TRAINING CONSULTANT by Alex Moses
== END 2020-09-01 17:51 | disposition home or self-care (01) ==
LOC: ER 14:39
DX: H81.4 Vertigo of central origin (principal); I10 Essential (primary) hypertension; I48.91 Unspecified atrial fibrillation; E03.9 Hypothyroidism, unspecified; Z79.01 Long term (current) use of anticoagulants
CPT/HCPCS: 93005; 85025; 80048; 36415; 83735; 82550; 85610; 80076; 85730; 81003; 84484; 82553; 83690; 70450; 96360; 99284; J7030

== ENCOUNTER 2021-07-26 16:32 | Emergency (ER) | payer OTHER, BC ==
--- OUTSIDE RECORDS SUMMARY | 2021-07-26 16:35 | XMS REPORT | Continuity of Care Document ---
:1950 Author Organization [facility] t Address [address] [place] [address] [address]. [address] [place] [address] Care Team Providers Name Role Phone Marsha NAJERA Primary Care Physician Unavailable Contreras Schulz MD Attending Clinician Contreras SCHULZ Attending Clinician Unavailable BILL Attending Clinician Unavailable REVA Attending Clinician Unavailable RUSSEL Attending Clinician Unavailable HAMZAH Attending Clinician Unavailable HAMZAH Admitting Clinician Unavailable Payers Payer Name Policy Type Policy Number Effective Date Expiration Date S ource Problems Condition Condition Condition Status Onset Resolution Last Treating Co mments Source Name Details Category Date Date Treatment Clinician Date No known No known Disease Unive rs active active ity of problems problems [facility] Allergies, Adverse Reactions, Alerts Allergy Allergy Status Severity Reaction(s) Onset Inactive Treating Comm ents Source Name Type Date Date Clinician NO KNOWN Drug Active Univers ALLERGIE Class ity of S [facility] Social History Social Habit Start Date Stop Date Quantity Comments Source Exposure to Not sure [facility] SARS-CoV-2 (event) Medica l Branch Alcohol intake 2017-09-26 2017-09-26 0 /d [facility] 00:00:00 00:00:00 [facility] Sex Assigned At [address] 1950 [facility] 00:00:00 00:00:00 [facility] Smoking Status Start Date Stop Date Source Never smoker [facility] Medications Ordered Filled Start Stop Current Ordering Indication Dosage Frequency Signature Comments Components Source Medication Medication Date Date Medication? Clinician (SIG) Name Name mupirocin 2 Yes Apply to U nivers % ointment 1-04 area(s) 2 ity of 00:00: (two) [place] 00 times Medical daily. Branch clonazePAM Yes 1mg Take 1 mg Un rozina (KLONOPIN) 08 by mouth ity o f 1 mg tablet 14:34[place] 29 [place] multivit-mi Yes Take by Un rozina n-FA-K-lyco 7-08 mouth. ity of pene 14:34: [place] (ONE-A-DAY 29 Medical MEN'S 50+ Branch ADVANTAGE) 400-20-370 mcg Tab losartan Yes 50mg Take 50 mg Uni vers (COZAAR) 708 by mouth ity of 100 mg 14:34: daily. [place] tablet 29 Medical Branch aspirin 81 Yes 81mg Take 81 mg U nivers mg chewable 08 by mouth ity of tablet 14:34: daily. [place] 29 Medical Branch Cholecalcif Yes Take by Un rozina dillon, 7-08 mouth. ity of Vitamin D3, 14:34: [place] (VITAMIN 29 [facility] D3) 2,[address] [place] Cap FERROUS Yes Take by Univer s FUMARATE 7-08 mouth. ity of (IRON ORAL) 14:34: [place] 29 Medical Branch Cyanocobala Yes Place Unive rs min 08 under the ity of (VITAMIN 14:34: tongue. [place] B-12) 1,000 29 Medical mcg Subl Branch ELIQUIS 5 Yes Univers mg tablet 6-14 ity of 00:00: [place] 00 Medical Branch KCL 20 mEq 2018- Yes TAKE 2 Unive rs tablet 1-31 TABLETS(40 ity of 00:00: MEQ) BY [place] 00 MOUTH Medical DIRECTED Branch propafenone Yes 325mg Take 325 U nivers (RYTHMOL 3-12 mg by ity of SR) 325 mg 15:14: mouth 2 [place] 12 [place] 05 (two) Medical capsule times Branch daily. NaCl 0.9% Yes Infuse Univer s (NS) SolP 3-12 once now. ity o f 250 mL with 15:14: [place] inFLIXimab 05 Medical 100 mg SolR Branch triamcinolo 2015-07 Yes Apply to U nivers ne 1-14 area(s) 2 ity of acetonide 00:00: (two) [place] (TRIDERM) 00 times Medical 0.1 % cream daily. Branch GENERLAC 10 Yes TK 15 TO Un rozina gram/15 mL 8-18 30 ML PO ity o f solution 00:00: ONE OR BID Mike as 00 PRN. [facility] Branch PENTASA 500 Yes TK 1 Univer s mg CR 8-18 CAPSULE BY ity of capsule 00:00: MOUTH TID [place] 00 Medical Branch furosemide 2015- Yes TK 2 TS PO U nivers (LASIX) 40 6-10 D FOR 3 ity of mg tablet 00:00: DAYS AND [place] 00 THEN 1 T D [facility] Branch UNITHROID Yes Univers 88 mcg 6-18 ity of tablet 00:00: [place] 00 [facility] Vitamins-Li Yes Take by Un rozina potropics 6-10 mouth. ity of (LIPO-FLAVO 15:23: [place] NOID PLUS) 15 Medical 200-100 mg Branch Tab Immunizations Ordered Filled Immunization Date Status Comments Sourc e Immunization Name Name SARS-COV-2 COVID-19 2020-09-20 Completed Unive rsity of MODERNA VACCINE 00:00:00 [facility] SARS-COV-2 COVID-19 2020-08-23 Completed Unive rsity of MODERNA VACCINE 00:00:00 [facility] Procedures This patient has no known procedures. Encounters Start End Encounter Admission Attending Care Care Encounter Source Date/Time Date/Time Type Type Clinicians Facility Department ID 2021-07-21 2021-07-21 Office Jazz MOTK [id number] Univers 10:15:00 10:52:48 Visit Marek Chairez MULTISPEC [id number] ity of [place] [id number] [place] [facility] [id number] [facility] AND [address] [facility] 2021-07-21 2021-07-[address] [facility] [id number] Univers 10:15:00 10:52:48 MAREK weir of [facility] 2021-07-20 2021-07-20 Outpatient [facility] [id number] [place] 00:00:00 00:00:00 MAKSIM [address] 2021-07-01 2021-07-01 Outpatient [facility] [id number] [place] 00:00:00 00:00:[address] 2021-06-16 2021-06-16 Outpatient KOSARAC, [facility] [id number] [place] 00:00:00 00:00:00 BRANKA [address] 2021-05-06 2021-05-06 Outpatient [facility] [id number] [place] 00:00:00 00:00:[address] 2021-05-01 2021-05-01 Outpatient KOSARAC, [facility] [id number] [place] 00:00:00 00:00:00 BRANKA [address] 2021-03-11 2021-03-11 Outpatient [facility] [id number] [place] 00:00:00 00:00:[address] 2021-01-16 2021-01-16 Outpatient [facility] [id number] [place] 00:00:00 00:00:[address] 2021-01-16 2021-01-16 Outpatient REVA, [facility] [id number] [place] 00:00:00 00:00:00 AIDAN [address] 2020-11-20 2020-11-20 Outpatient [facility] [id number] [place] 00:00:00 00:00:[address] 2020-10-30 2020-10-30 Outpatient REVA, [facility] [id number] [place] 00:00:00 00:00:00 AIDAN [address] 2020-10-30 2020-10-30 Outpatient [facility], [facility] [id number] [place] 00:00:00 00:00:00 AIDAN [address] 2020-09-26 2020-09-26 Outpatient [facility] [id number] [place] 00:00:00 00:00:[address] 2020-09-25 2020-09-25 Outpatient KOSARAC, [facility] [id number] [place] 00:00:00 00:00:00 BRANKA [address] 2020-08-05 2020-08-05 Outpatient THEKDI, [facility] [id number] [place] 00:00:00 00:00:00 EDY [address] 2020-08-01 2020-08-01 Outpatient [facility] [id number] [place] 00:00:00 00:00:[address] 2020-06-26 2020-06-26 Outpatient [facility] [id number] [place] 00:00:00 00:00:[address] 2020-06-26 2020-06-26 Outpatient PALAKARAC, [facility] [id number] [place] 00:00:00 00:00:00 BRANKA [address] 2020-06-06 2020-06-06 Outpatient [facility] [id number] [place] 00:00:00 00:00:[address] 2020-04-11 2020-04-11 Outpatient [facility] [id number] [place] 00:00:00 00:00:[address] 2020-03-05 2020-03-05 Outpatient [facility] [id number] [place] 00:00:00 00:00:[address] 2020-02-27 2020-02-27 Outpatient [facility] [id number] [place] 00:00:00 00:00:[address] 2020-02-08 2020-02-08 Outpatient [facility] [id number] [place] 00:00:00 00:00:[address] 2020-01-09 2020-01-09 Outpatient [facility] [id number] [place] 00:00:00 00:00:[address] 2020-01-09 2020-01-09 Outpatient REVA, [facility] [id number] [place] 00:00:00 00:00:00 AIDAN [address] 2019-12-21 2019-12-21 Outpatient [facility] [id number] [place] 00:00:00 00:00:[address] 2019-12-12 2019-12-12 Outpatient [facility] [id number] [place] 00:00:00 00:00:[address] 2019-10-16 2019-10-16 Outpatient [facility] [id number] [place] 00:00:00 00:00:[address] 2019-09-14 2019-09-14 Outpatient VALDERRABAN [facility] [id number] [place] 00:00:00 00:00:00 TRAMAINE Aparicio [address] 2019-05-08 2019-05-09 [facility] [id number] [place] 00:00:00 00:00:00 OTRAMAINE [address] Results This patient has no known results.
[2021-07-26 18:06] LABS: ALT/SGPT 22 U/L (12-78); AST/SGOT 23 U/L (15-37); Absolute Lymphocytes (CBC) 0.3 K/uL (0.7-4.9); Albumin 3.3 g/dL (3.4-5.0); BUN Blood Urea Nitrogen 21 mg/dL (7-18); Bicarbonate 27 mmol/L (21-32); Bilirubin Direct 0.3 mg/dL (0-0.2); Bilirubin Total 0.9 mg/dL (0.2-1.0); Glucose Level 89 mg/dL (74-106); Hematocrit 36.8 % (39.6-49.0); Lipase 24 U/L (73-393); Lymphocytes % 2.1 % (15.3-44.8); MPV 7.7 fL (7.6-11.3); Protein, Total 6.7 g/dL (6.4-8.2); RBC Red Blood Cell Count 3.95 M/uL (4.33-5.43); Sodium Level 137 mmol/L (136-145)
[2021-07-26 18:07] LABS: Alkaline Phosphatase 96 U/L (45-117)
--- NOTE | 2021-07-26 19:05 | RAD REPORT ---
EXAM DESCRIPTION: CT - Abdomen Pelvis W Contrast - 07/26/2021 6:52 pm CLINICAL HISTORY: Abdominal pain/constipation COMPARISON: 2017 TECHNIQUE: Computed axial tomography of the abdomen pelvis was obtained. 100 cc Isovue-300 was admin istered intravenously. Oral contrast was not requested which limits evaluation of bowel. All CT scans are performed using dose optimization technique as appropriate and may include automated exposure control or mA/KV adjustment according to patient size. FINDINGS: A 21 millimeter intermediate density lesion within the liver adjacent to the gallbladder i s unchanged and likely benign. Spleen, pancreas, adrenal and right kidney appear unremarkable. Small left renal cyst. Mild enlargement of the prostate gland. The rectum is distended with stool measuring 7 centimeters. A moderate amount of liquid stool is pres ent throughout the colon. Fluid is present within nondilated small bowel. No evidence of diverticulitis. Small hiatal hernia IMPRESSION: Rectum is distended with stool. Moderate amount of liquid stool throughout the colon
--- NOTE | 2021-07-26 20:20 | EDPHYS ---
Physician Documentation [facility] Name: Madi Tiwari III Age: 70 yrs Sex: Male : 1950 Arrival Date: 07/26/2021 Time: 16:48 Bed 20 Private MD: ED Physician Christine Blair HPI: 07/26 17:36 This 70 yrs old Male presents to ER via EMS with complaints of Constipation. pm1 17:36 The patient presents with Constipation. Onset: The symptoms/episode began/occurred 10 pm1 day(s) ago. Associated signs and symptoms: Pertinent positives: diarrhea, Pertinent negatives: nausea and vomiting, fever. Modifying factors: The symptoms are alleviated by OTC laxatives mildly. the symptoms are aggravated by nothing. The patient has experienced similar episodes in the past, patient takes prescription daily laxatives. The patient has not recently seen a physician. Historical: - Home Meds: 17:00 clonazepam 1 mg Oral tab daily [Active]; Colace 100 mg Oral cap 1 cap once daily cb5 [Active]; Eliquis 5 mg Oral tab 1 tab 2 times per day [Active]; furosemide 40 mg Oral tab 1 tab 2 times per day [Active]; losartan 25 mg Oral tab 2 times per day [Active]; Miralax 17 gram Oral pwpk once daily [Active]; potassium chloride 20 mEq Oral TbER 1 tab 2 times per day [Active]; Propafenone Oral [Active]; Remicade intravenous [Active]; Unithroid 88 mcg Oral tab once daily [Active]; - PMHx: 17:00 Anemia; Anxiety; Atrial Fib; Crohn's; Hypertension; Hypothyroidism; neuropathy; cb5 osteoarthristis; - Immunization history:: Adult Immunizations up to date, Client reports receiving the 2nd dose of the Covid vaccine. - Social history:: Smoking status: Patient denies any tobacco usage or history of. ROS: 17:36 Constitutional: Negative for fever, chills, and weight loss, Cardiovascular: Negative pm1 for chest pain, palpitations, and edema, Respiratory: Negative for shortness of breath, cough, wheezing, and pleuritic chest pain. 17:36 Back: Negative for injury and pain, : Negative for injury, bleeding, discharge, and swelling, MS/Extremity: Negative for injury and deformity, Skin: Negative for injury, rash, and discoloration, Neuro: Negative for headache, weakness, numbness, tingling, and seizure. 17:36 Abdomen/GI: Positive for abdominal pain, diarrhea, constipation, of the right lower quadrant and left lower quadrant, Negative for nausea and vomiting. 17:36 All other systems are negative. Exam: 17:36 Constitutional: This is a well developed, well nourished patient who is awake, alert, pm1 and in no acute distress. Head/Face: Normocephalic, atraumatic. 17:36 Back: No spinal tenderness. No costovertebral tenderness. Full range of motion. Skin: Warm, dry with normal turgor. Normal color with no rashes, no lesions, and no evidence of cellulitis. MS/ Extremity: Pulses equal, no cyanosis. Neurovascular intact. Full, normal range of motion. 17:36 Cardiovascular: Exam negative for acute changes, Rate: normal, Rhythm: Pulses: no pulse deficits are appreciated. 17:36 Respiratory: Exam negative for acute changes, respiratory distress, shortness of breath, Breath sounds: are clear throughout. 17:36 Abdomen/GI: Exam negative for acute changes, Inspection: abdomen appears normal, Palpation: abdomen is soft and non-tender, in all quadrants. 17:36 Neuro: Exam negative for acute changes, Orientation: is normal, Mentation: is normal, Motor: is normal, moves all fours. Vital Signs: 16:45 BP 142 / 58; Pulse 72; Resp 16; Pulse Ox 98% ; cb5 17:04 BP 134 / 51; Pulse 72; Resp 16; Temp 98.6; Pulse Ox 99% ; cb5 20:34 Pulse 72; Resp 18; Pulse Ox 99% on R/A; ss Procedures: 20:18 Fecal disimpaction: digital disimpaction was performed, with a large amount of stool pm1 expressed. The patient tolerated the intervention well, Alda PLATA him tech for procedure. MDM: 17:04 Patient medically screened. pm1 20:18 Data reviewed: vital signs. Data interpreted: Pulse oximetry: on room air is 99 %. pm1 Interpretation: normal. 20:18 Counseling: I had a detailed discussion with the patient and/or guardian regarding: the pm1 historical points, exam findings, and any diagnostic results supporting the discharge/admit diagnosis, lab results, radiology results, the need for outpatient follow up, to return to the emergency department if symptoms worsen or persist or if there are any questions or concerns that arise at home. 07/26 17:06 Order name: Basic Metabolic Panel; Complete Time: 18:11 pm1 07/26 17:06 Order name: CBC with Diff; Complete Time: 18:11 pm1 07/26 17:06 Order name: CT Abd/Pelvis - IV Contrast Only; Complete Time: 19:20 pm1 07/26 17:06 Order name: Hepatic Function; Complete Time: 18:11 pm1 07/26 17:06 Order name: Lipase; Complete Time: 18:11 pm1 07/26 17:06 Order name: IV Saline Lock; Complete Time: 17:32 pm1 07/26 17:06 Order name: Labs collected and sent; Complete Time: 17:32 pm1 07/26 17:06 Order name: Urine Dipstick-Ancillary (obtain specimen) pm1 Administered Medications: 17:32 Drug: NS 0.9% 500 ml Route: IV; Rate: bolus; Site: right antecubital; cb5 Disposition Summary: 07/26/21 20:20 Discharge Ordered Location: Home pm1 Problem: new pm1 Symptoms: have improved pm1 Condition: Stable pm1 Diagnosis - Constipation, unspecified pm1 - Fecal impaction - resolved pm1 Followup: pm1 - With: Emergency Department - When: As needed - Reason: Worsening of condition Followup: pm1 - With: Private Physician - When: 2 - 3 days - Reason: Recheck today's complaints, Continuance of care, Re-evaluation by your physician Discharge Instructions: - Discharge Summary Sheet pm1 - Constipation, Adult pm1 - Fecal Impaction pm1 Forms: - Medication Reconciliation Form pm1 - Thank You Letter pm1 - Antibiotic Education pm1 - Prescription Opioid Use pm1 Prescriptions: - Miralax 17 gram Oral powder in packet - take 1 packet by ORAL route once daily As needed; 7 packet; Refills: 0, Product pm1 Selection Permitted Signatures: Dispatcher [employer] Angelo Yadav NP MISSILE MECHANIC pm1 Lis Smith, RN RN cb5 Corrections: (The following items were deleted from the chart) 20:35 20:18 Fecal disimpaction: digital disimpaction was performed, with a large amount of pm1 stool expressed. The patient tolerated the intervention well, pm1
--- NOTE | 2021-07-26 20:20 | ER ---
Nurse's Notes [facility] Name: Madi Tiwari III Age: 70 yrs Sex: Male : 1950 Arrival Date: 07/26/2021 Time: 16:48 Bed 20 Private MD: Diagnosis: Constipation, unspecified;Fecal impaction-resolved Presentation: 07/26 16:45 Chief complaint: Patient states: pt states he has chrons disease, has not had a normal cb5 BM in 10 days. States he has had n/v/d. attempted stool softners and has had some results. Coronavirus screen: Vaccine status:. Ebola Screen: Patient negative for fever greater than or equal to 101.5 degrees Fahrenheit, and additional compatible Ebola Virus Disease symptoms Patient denies exposure to infectious person. Patient denies travel to an Ebola-affected area in the 21 days before illness onset. Initial Sepsis Screen: Does the patient meet any 2 criteria? No. Patient's initial sepsis screen is negative. Does the patient have a suspected source of infection? No. Patient's initial sepsis screen is negative. Risk Assessment: Do you want to hurt yourself or someone else? Patient reports no desire to harm self or others. Onset of symptoms was July 18, 2021. 16:45 Method Of Arrival: EMS: [facility] cb5 16:45 Acuity: ONDINA 3 cb5 Triage Assessment: 16:45 General: Appears in no apparent distress. comfortable, well groomed, Behavior is calm, cb5 cooperative, appropriate for age. Pain: Complains of pain in abdomen Pain currently is 5 out of 10 on a pain scale. Quality of pain is described as crampy, pressure. EENT: No deficits noted. Neuro: No deficits noted. Cardiovascular: Reports history of A-fib. Respiratory: No deficits noted. GI: Reports lower abdominal pain, upper abdominal pain, constipation, cramping, diarrhea, flatulence, nausea, Pain is 5 out of 10 on a pain scale. : No deficits noted. Derm: No deficits noted. Musculoskeletal: No deficits noted. Historical: - Home Meds: 17:00 clonazepam 1 mg Oral tab daily [Active]; Colace 100 mg Oral cap 1 cap once daily cb5 [Active]; Eliquis 5 mg Oral tab 1 tab 2 times per day [Active]; furosemide 40 mg Oral tab 1 tab 2 times per day [Active]; losartan 25 mg Oral tab 2 times per day [Active]; Miralax 17 gram Oral pwpk once daily [Active]; potassium chloride 20 mEq Oral TbER 1 tab 2 times per day [Active]; Propafenone Oral [Active]; Remicade intravenous [Active]; Unithroid 88 mcg Oral tab once daily [Active]; - PMHx: 17:00 Anemia; Anxiety; Atrial Fib; Crohn's; Hypertension; Hypothyroidism; neuropathy; cb5 osteoarthristis; - Immunization history:: Adult Immunizations up to date, Client reports receiving the 2nd dose of the Covid vaccine. - Social history:: Smoking status: Patient denies any tobacco usage or history of. Screenin:06 Abuse screen: Denies threats or abuse. Denies injuries from another. Nutritional cb5 screening: No deficits noted. Tuberculosis screening: No symptoms or risk factors identified. Fall Risk None identified. Assessment: 17:00 General: Appears comfortable, slender, well groomed, Behavior is cooperative, cb5 appropriate for age. Pain: Pain currently is 5 out of 10 on a pain scale. Alleviated by pt c/o of pressure in rectal area. Neuro: No deficits noted. Cardiovascular: No deficits noted. Respiratory: No deficits noted. GI: Reports lower abdominal pain, upper abdominal pain, bloating, constipation, cramping, diarrhea, flatulence. 17:00 : No deficits noted. EENT: No deficits noted. Derm: No deficits noted. cb5 Musculoskeletal: No deficits noted. 17:00 Reassessment: Placed 20 g P.I.V> to right AC usine aseptic tech, obtained blood, sent cb5 to lab. 17:20 Reassessment: pts P.I.V infiltrated, removed and placed a 20 g to left AC using aseptic cb5 tech, pt tolerated well. NS infusing. 20:34 General: Behavior is cooperative, appropriate for age. ss Vital Signs: 16:45 BP 142 / 58; Pulse 72; Resp 16; Pulse Ox 98% ; cb5 17:04 BP 134 / 51; Pulse 72; Resp 16; Temp 98.6; Pulse Ox 99% ; cb5 20:34 Pulse 72; Resp 18; Pulse Ox 99% on R/A; ss ED Course: 16:48 Patient arrived in ED. cb5 16:49 Lis Smith, RN is Primary Nurse. cb5 16:54 Angelo Weston NP is PHCP. pm1 16:54 Christine Blair MD is Attending Physician. pm1 17:00 Triage completed. cb5 17:06 Arm band placed on right wrist. cb5 17:06 Patient has correct armband on for positive identification. Allergy band placed. Fall cb5 risk band placed. Bed in low position. Call light in reach. Side rails up X 1. 17:32 Basic Metabolic Panel Sent. cb5 17:32 CBC with Diff Sent. cb5 17:32 Hepatic Function Sent. cb5 18:34 Inserted saline lock: 20 gauge in left upper arm, using aseptic technique. dh3 18:51 CT Abd/Pelvis - IV Contrast Only In Process Unspecified. 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 IV discontinued, intact, bleeding controlled, ss No redness/swelling at site. Pressure dressing applied. Administered Medications: 17:32 Drug: NS 0.9% 500 ml Route: IV; Rate: bolus; Site: right antecubital; cb5 Outcome: 20:20 Discharge ordered by MD. pm1 20:34 Discharged to home via wheelchair, with family. ss 20:34 Condition: improved 20:34 Discharge instructions given to patient, Instructed on discharge instructions, follow up and referral plans. medication usage, Demonstrated understanding of instructions, follow-up care, Prescriptions given X 1. 20:35 Patient left the ED. ss Signatures: Dispatcher [employer] EDLA Emilie Kim, SHERLYN RN Angelo Weston, VON ENTERPRISE INTEGRATION ARCHITECT 1 Dee Dee Alas [facility] Lis Smith, RN RN cb5
[2021-07-26 20:45] VITALS: BP 134/51; TEMP 98.6; O2SAT 99
== END 2021-07-26 20:35 | disposition home or self-care (01) ==
LOC: ER 16:32
DX: K56.41 Fecal impaction (principal); I10 Essential (primary) hypertension; I48.91 Unspecified atrial fibrillation; Z79.01 Long term (current) use of anticoagulants
CPT/HCPCS: 85025; 80048; 36415; 82565; 80076; 83690; 74177; 99284; Q9967

== ENCOUNTER 2023-05-26 05:50 | Emergency (ER) | payer OTHER, BC ==
--- OUTSIDE RECORDS SUMMARY | 2023-05-26 05:54 | XMS REPORT | Continuity of Care Document ---
:1950 Author Organization [facility] t Address [address] [place] [address] [place] [id number] Care Team Providers Name Role Phone BARBARA NAJERA Primary Care Physician Unavailable MAREK OSBORN Attending Clinician Unavailable Marek Osborn MD Attending Clinician Solomon Joshua MD Attending Clinician Isiah Ardon MD Attending Clinician [phone] Yolis Kauffman MA Attending Clinician Unavailable Fany Sanchez MA Attending Clinician Unavailable Jorge GOLDSTEIN, Hannah Herrmann Attending Clinician [phone] Corrie LONGORIA, Chelsea Attending Clinician Lalitha Galvan MD Attending Clinician Claudia Topete PA-C Attending Clinician Xavi Brownlee MD Attending Clinician Dayami Acharya MD Attending Clinician BARBARA WORLEY Attending Clinician Unavailable EDY GOODE Attending Clinician Unavailable Manny Mann MD Attending Clinician MANNY MANN Attending Clinician Unavailable MANNY MANN Attending Clinician Unavailable Doctor Unassigned, [place] Attending Clinician Unavailable TRAMAINE GOODSON Attending Clinician Unavailable ISIAH ARDON Admitting Clinician Unavailable TRAMAINE GOODSON Admitting Clinician Unavailable Payers Payer Name Policy Type Policy Number Effective Date Expiration Date S ource MEDICARE PART A \T\ [id number] 2014 B 00:00:00 [employer] TRADITIONAL [id number] 2014 00:00:00 Problems Condition Condition Condition Status Onset Resolution Last Treating Co mments Source Name Details Category Date Date Treatment Clinician Date NE NE Disease Active 2021-07 [facility] positive positive [facility] [address] 00:00: [facility] 00 l BPH BPH Disease Active 2021-07 Methodi (benign (benign 020 st prostatic prostatic 00:00: [facility]osp [facility] hyperplasi hyperplasi 00 l a) a) Vitamin D Vitamin D Disease Active Met hodi deficiency deficiency 09-25 st 00:00: Hospita 00 l Vitamin Vitamin Disease Active Methodi B12 B12 09-25 st deficiency deficiency 00:00: Ho spita 00 l Basal cell Basal cell Disease Active M ethodi carcinoma carcinoma 09-25 st (BCC) of (BCC) of 00:00: Hospit a skin of skin of 00 l face face Osteoarthr Osteoarthr Disease Recurre Methodi itis itis nce 3 st 00:00: Hospita 00 l Osteopenia Osteopenia Disease Recurre Overvie w: Methodi nce [address] 00:00: g of this Hospita 00 note l might be different from the original. 04/06/19 OSH DXA : AP spine - 1.2 , L FN - 1.6, L TH - 1.61/22 DXA ; AP spine (L1- L4) T-Score: -0.9 Dual Femur (Total Mean): T-Score: -1.5 Neck Neck Disease Active Methodi discomfort discomfort 3 st 00:00: Hospita 00 l Hypothyroi Hypothyroi Disease Recurre 2019-07 Methodi dism dism nce 2-10 st 00:00: Hospita 00 l Anxiety Anxiety Disease Recurre 2019-07 Method i nce 2- st 00:00: Hospita 00 l Neuropathy Neuropathy Disease Active 2019-07 M ethodi 2- st 00:00: Hospita 00 l HTN HTN Disease Recurre 2019-07 Methodi (hypertens (hypertens nce 2-10 st ion) ion) 00:00: Hospita 00 l Atrial Atrial Disease Active Methodi flutter flutter 2-28 st 00:00: Hospita 00 l PVC PVC Disease Active Last Methodi (premature (premature 10-[address] ventricula ventricula 00:00: t & Plan: Hospita r r 00 Formattin l contractio contractio g of this n) n) note might be different from the original. Skipped beats almost dailyBard y 1-wk monitor to assess for PVC burdenRTC ~ 3 months Lymphedema Lymphedema Disease Active Overview : Methodi of both of both 3-[address] lower lower 00:00: g of this Hospita extremitie extremitie 00 note l s s might be different from the original. R LE > L LE [place] inue with knee-high tedhoseCo ntinue Lasix Atrial Atrial Disease Recurre Last Methodi fibrillati fibrillati nce 5-[address] on on 00:00: t & Plan: Hospita 00 Formattin l g of this note might be different from the original. No recurrenc e Crohn's Crohn's Disease Recurre Method i disease disease nce 9-08 st 00:00: Hospita 00 l History of History of Disease Active M ethodi gastrointe gastrointe 6-08 st stinal stinal 00:00: Hospita bleeding bleeding 00 l ANTWON (iron ANTWON (iron Disease Recurre Me thodi deficiency deficiency nce 2-10 st anemia) anemia) 00:00: Hospita 00 l No known No known Disease Unive rs active active ity of problems problems [facility] Allergies, Adverse Reactions, Alerts Allergy Allergy Status Severity Reaction(s) Onset Inactive Treating Comm ents Source Name Type Date Date Clinician NO KNOWN Drug Active Univers ALLERGIE Class ity of S [facility] Family History Family Member Diagnosis Comments Start Date Stop Date Source Natural mother [facility] sister [facility] Social History Social Habit Start Date Stop Date Quantity Comments Source Gender identity [facility] Sexual orientation [facility] Alcohol intake 2023-01-27 2023-01-27 Current [facility]orship 00:00:00 00:00:00 non-drinker of Hospital alcohol (finding) History of Social 2023-01-27 2023-01-[address] function 00:00:00 00:00:00 Hospital Tobacco use and 2022-05-06 2022-05-06 Smokeless Worship exposure 00:00:00 00:00:00 tobacco non-user Hospital Exposure to 2022-03-05 2022-03-15 Not sure [facility]-CoV-2 (event) 00:00:00 11:43:00 [facility] Sex Ass[birth year] At [birth year] W[facility] 00:00:00 00:00:00 Hospital Smoking Status Start Date Stop Date Source Never smoked tobacco [facility] Medications Ordered Filled Start Stop Current Ordering Indication Dosage Frequency Signature Comments Components Source Medication Medication Date Date Medication? Clinician (SIG) Name Name polyethylen Yes 17g QD Take 17 g M ethodi e glycol 7-[address] (MIRALAX) 14:50: daily. Hospit a 17 gram 57 l packet docusate Yes 100mg QD Take 1 Method i sodium 7-[address] (COLACE) 14:50: (100 mg Hospit a 100 MG 57 total) by l capsule mouth daily. cyanocobala Yes 1000ug QD Place Met hodi min, 7-13 1,[address] vitamin 14:50: under the Hospi ta B-12, 5,000 57 tongue l mcg tablet, daily. sublingual losartan Yes 25mg Q.5D Take 1 Methodi (COZAAR) 25 7-13 tablet (25 st MG tablet 14:50: mg total) Hos amadou 57 by mouth 2 l (two) times a day as needed. inFLIXimab Yes Infuse Metho di (REMICADE) 7-[address] 100 mg 14:50: venous Hospita injection 57 catheter. l Every 8 weeks multivitami Yes 2{tbl} QD Chew 2 Me thodi n 7-[address] tablet,chew 14:50: daily. Hosp lamberto able 57 l aspirin Yes 81mg QD Take 1 Methodi (ECOTRIN) 7-13 tablet (81 st 81 MG 14:50: mg total) Hospita enteric 57 by mouth l coated daily. tablet alla-D3-mag1 Yes Q.5D Take by Met hodi 1-zinc-cop examiner- 7-[address] anita-bor 14:50: (two) Hospita (Caltrate 57 times a l 600-D Plus day. Minerals) 600 mg calcium- 800 unit-50 mg tablet spironolact 0 Yes 25mg QD Take 1 Meth hilario one 6-22 tablet (25 st (ALDACTONE) 00:00: mg total) H ospita 25 MG 00 by mouth l tablet daily. levothyroxi Yes [id number] TAKE 1 Methodi ne 3-24 TABLET(88 st (SYNTHROID) 00:00: MCG) BY Hos amadou 88 mcg 00 MOUTH l tablet EVERY MORNING linaCLOtide 0 4- No 145ug QD Take 1 Me thodi (LINZESS) 2-28 02-[address] 145 mcg 00:00: 05:59 (145 mcg Hospi ta capsule 00 :00 total) by l mouth daily before breakfast. methotrexat 2023- No [id number] 5mg Q7D Take 2 Methodi e 2.5 MG 1-20 01-21 tablets (5 st tablet 00:00: 05:59 mg total) Hospi ta 00 :00 by mouth l once a week. FERROUS 2021-07 Yes Take by Univers FUMARATE 1-16 mouth. ity of (IRON ORAL) 08:12: [place] [facility] NaCl 0.9% 2021-07 Yes Infuse Univer s (NS) SolP 1-16 once now. ity o f 250 mL with 08:12: [place] inFLIXimab 19 Medical 100 mg SolR Branch Cyanocobala 2021-[address] Unive rs min -16 under the ity of (VITAMIN 08:12: tongue. [place] B-12) 1,000 19 Medical mcg Subl Branch Vitamins-Li 2021-07 Yes Take by Uni vers potropics 1-16 mouth. ity of (LIPO-FLAVO 08:12: [place] NOID PLUS) 19 Medical 200-100 mg Branch Tab clonazePAM 2021-07 Yes 1mg Take 1 mg Un rozina (KLONOPIN) 1-16 by mouth ity o f 1 mg tablet 08:12: [facility]. [facility] propafenone 2021-07 Yes 325mg Take 325 U nivers (RYTHMOL 1-16 mg by ity of SR) 325 mg 08:12: [place] 2 [place] 12 [place] 19 (two) Medical capsule times Branch daily. multivit-mi 2021-07 Yes Take by Uni vers n-FA-K-lyco 1-16 mouth. ity of pene 08:12: [place] (ONE-A-DAY 19 Medical MEN'S 50+ Branch ADVANTAGE) 400-20-370 mcg Tab losartan 2021-07 Yes 50mg Take 50 mg Uni vers (COZAAR) -16 by mouth ity of 100 mg 08:12: daily. [place] tablet 19 Medical Branch aspirin 81 2021-07 Yes 81mg Take 81 mg U nivers mg chewable 16 by mouth ity of tablet 08:12: daily. [place] 19 Medical Branch Cholecalcif 2021-07 Yes Take by Uni vers dillon, -16 mouth. ity of Vitamin D3, 08:12: [place] (VITAMIN 19 Medical D3) 2,000 Branch unit Cap FERROUS 2021-07 Yes Take by Univers FUMARATE 16 mouth. ity of (IRON ORAL) 08:12: [place] [address] Medical Branch NaCl 0.9% 2021-07 Yes Infuse Univer s (NS) SolP -16 once now. ity o f 250 mL with 08:12: [place] inFLIXimab 19 Medical 100 mg SolR Branch Cyanocobala 2021-[address] Unive rs min -16 under the ity of (VITAMIN 08:12: tongue. [place] B-12) 1,000 19 Medical mcg Subl Branch Vitamins-Li 2021-07 Yes Take by Uni vers potropics -16 mouth. ity of (LIPO-FLAVO 08:12: [place] NOID PLUS) 19 Medical 200-100 mg Branch Tab clonazePAM 2021-07 Yes 1mg Take 1 mg Un rozina (KLONOPIN) -16 by mouth ity o f 1 mg tablet 08:12: [place]. [place] [facility] propafenone 2021-07 Yes 325mg Take 325 U nivers (RYTHMOL 1-16 mg by ity of SR) 325 mg 08:12: mouth 2 [place] 12 [place] 19 (two) Medical capsule times Branch daily. multivit-mi 2021-07 Yes Take by Uni vers n-FA-K-lyco 1-16 mouth. ity of pene 08:12: [place] (ONE-A-DAY 19 Medical MEN'S 50+ Branch ADVANTAGE) 400-20-370 mcg Tab losartan 2021-07 Yes 50mg Take 50 mg Uni vers (COZAAR) 1-16 by mouth ity of 100 mg 08:12: daily. [place] tablet 19 Medical Branch aspirin 81 2021-07 Yes 81mg Take 81 mg U nivers mg chewable -16 by mouth ity of tablet 08:12: daily. [place] 19 Medical Branch Cholecalcif 2021-07 Yes Take by Uni vers dillon, -16 mouth. ity of Vitamin D3, 08:12: [place] (VITAMIN 19 Medical D3) 2,000 Branch unit Cap FERROUS 2021-07 Yes Take by Univers FUMARATE -16 mouth. ity of (IRON ORAL) 08:12: [place] [address] Medical Branch NaCl 0.9% 2021-07 Yes Infuse Univer s (NS) SolP -16 once now. ity o f 250 mL with 08:12: [place] inFLIXimab 19 Medical 100 mg SolR Branch Cyanocobala 2021-[address] Unive rs min -16 under the ity of (VITAMIN 08:12: tongue. [place] B-12) 1,000 19 Medical mcg Subl Branch Vitamins-Li 2021-07 Yes Take by Uni vers potropics -16 mouth. ity of (LIPO-FLAVO 08:12: [place] NOID PLUS) 19 Medical 200-100 mg Branch Tab clonazePAM 2021-07 Yes 1mg Take 1 mg Un rozina (KLONOPIN) -16 by mouth ity o f 1 mg tablet 08:12: [place]. [place] [facility] propafenone 2021-07 Yes 325mg Take 325 U nivers (RYTHMOL 1-16 mg by ity of SR) 325 mg 08:12: mouth 2 [place] 12 [place] 19 (two) Medical capsule times Branch daily. multivit-mi 2021-07 Yes Take by Uni vers n-FA-K-lyco 1-16 mouth. ity of pene 08:12: [place] (ONE-A-DAY 19 Medical MEN'S 50+ Branch ADVANTAGE) 400-20-370 mcg Tab losartan 2021-07 Yes 50mg Take 50 mg Uni vers (COZAAR) 1-16 by mouth ity of 100 mg 08:12: daily. [place] tablet 19 Medical Branch aspirin 81 2021-07 Yes 81mg Take 81 mg U nivers mg chewable -16 by mouth ity of tablet 08:12: daily. [place] 19 Medical Branch Cholecalcif 2021-07 Yes Take by Uni vers dillon, 1-16 mouth. ity of Vitamin D3, 08:12: [place] (VITAMIN 19 Medical D3) 2,000 Branch unit Cap FERROUS 2021-07 Yes Take by Univers FUMARATE 1-16 mouth. ity of (IRON ORAL) 08:12: [place] [address] Medical Branch NaCl 0.9% 2021-07 Yes Infuse Univer s (NS) SolP -16 once now. ity o f 250 mL with 08:12: [place] inFLIXimab 19 Medical 100 mg SolR Branch Cyanocobala 2021-[address] Unive rs min 16 under the ity of (VITAMIN 08:12: tongue. [place] B-12) 1,000 19 Medical mcg Subl Branch Vitamins-Li 2021-07 Yes Take by Uni vers potropics 1-16 mouth. ity of (LIPO-FLAVO 08:12: [place] NOID PLUS) 19 Medical 200-100 mg Branch Tab clonazePAM 2021-07 Yes 1mg Take 1 mg Un rozina (KLONOPIN) -16 by mouth ity o f 1 mg tablet 08:12: [facility] propafenone 2021-07 Yes 325mg Take 325 U nivers (RYTHMOL 1-16 mg by ity of SR) 325 mg 08:12: mouth 2 [place] 12 [place] 19 (two) Medical capsule times Branch daily. multivit-mi 2021-07 Yes Take by Uni vers n-FA-K-lyco 1-16 mouth. ity of pene 08:12: [place] (ONE-A-DAY 19 Medical MEN'S 50+ Branch ADVANTAGE) 400-20-370 mcg Tab losartan 2021-07 Yes 50mg Take 50 mg Uni vers (COZAAR) 1-16 by mouth ity of 100 mg 08:12: daily. [place] tablet 19 Medical Branch aspirin 81 2021-07 Yes 81mg Take 81 mg U nivers mg chewable -16 by mouth ity of tablet 08:12: daily. [place] [address] Medical Branch Cholecalcif 2021-07 Yes Take by Uni vers dillon, 1-16 mouth. ity of Vitamin D3, 08:12: [place] (VITAMIN 19 Medical D3) 2,000 Branch unit Cap FERROUS 2021-07 Yes Take by Univers FUMARATE 1-16 mouth. ity of (IRON ORAL) 08:12: [place] 19 Medical Branch NaCl 0.9% 2021-07 Yes Infuse Univer s (NS) SolP -16 once now. ity o f 250 mL with 08:12: [place] inFLIXimab 19 Medical 100 mg SolR Branch Cyanocobala 2021-[address] Unive rs min -16 under the ity of (VITAMIN 08:12: tongue. [place] B-12) 1,000 19 Medical mcg Subl Branch Vitamins-Li 2021-07 Yes Take by Uni vers potropics -16 mouth. ity of (LIPO-FLAVO 08:12: [place] NOID PLUS) 19 Medical 200-100 mg Branch Tab clonazePAM 2021-07 Yes 1mg Take 1 mg Un rozina (KLONOPIN) 16 by mouth ity o f 1 mg tablet 08:12: [place]. [place] 19 [facility] propafenone 2021-07 Yes 325mg Take 325 U nivers (RYTHMOL 1-16 mg by ity of SR) 325 mg 08:12: mouth 2 [place] 12 [place] 19 (two) Medical capsule times Branch daily. multivit-mi 2021-07 Yes Take by Uni vers n-FA-K-lyco -16 mouth. ity of pene 08:12: [place] (ONE-A-DAY 19 Medical MEN'S 50+ Branch ADVANTAGE) 400-20-370 mcg Tab losartan 2021-07 Yes 50mg Take 50 mg Uni vers (COZAAR) -16 by mouth ity of 100 mg 08:12: daily. [place] tablet 19 Medical Branch aspirin 81 2021-07 Yes 81mg Take 81 mg U nivers mg chewable -16 by mouth ity of tablet 08:12: daily. [place] [address] Medical Branch Cholecalcif 2021-07 Yes Take by Uni vers dillon, 1-16 mouth. ity of Vitamin D3, 08:12: [place] (VITAMIN 19 Medical D3) 2,000 Branch unit Cap FERROUS 2021-07 Yes Take by Univers FUMARATE 1-16 mouth. ity of (IRON ORAL) 08:12: [place] [address] Medical Branch NaCl 0.9% 2021-07 Yes Infuse Univer s (NS) SolP 1-16 once now. ity o f 250 mL with 08:12: [place] inFLIXimab 19 Medical 100 mg SolR Branch Cyanocobala 2021-[address] Unive rs min 1-16 under the ity of (VITAMIN 08:12: tongue. [place] B-12) 1,000 19 Medical mcg Subl Branch Vitamins-Li 2021-07 Yes Take by Uni vers potropics 1-16 mouth. ity of (LIPO-FLAVO 08:12: [place] NOID PLUS) 19 Medical 200-100 mg Branch Tab clonazePAM 2021-07 Yes 1mg Take 1 mg Un rozina (KLONOPIN) -16 by mouth ity o f 1 mg tablet 08:12: [place]. [place] 19 [facility] propafenone 2021-07 Yes 325mg Take 325 U nivers (RYTHMOL 1-16 mg by ity of SR) 325 mg 08:12: mouth 2 [place] 12 [place] 19 (two) Medical capsule times Branch daily. multivit-mi 2021-07 Yes Take by Uni vers n-FA-K-lyco 1-16 mouth. ity of pene 08:12: [place] (ONE-A-DAY 19 Medical MEN'S 50+ Branch ADVANTAGE) 400-20-370 mcg Tab losartan 2021-07 Yes 50mg Take 50 mg Uni vers (COZAAR) 1-16 by mouth ity of 100 mg 08:12: daily. [place] tablet 19 Medical Branch aspirin 81 2021-07 Yes 81mg Take 81 mg U nivers mg chewable -16 by mouth ity of tablet 08:12: daily. [place] 19 Medical Branch Cholecalcif 2021-07 Yes Take by Uni vers dillon, 1-16 mouth. ity of Vitamin D3, 08:12: [place] (VITAMIN 19 Medical D3) 2,000 Branch unit Cap FERROUS 2021-07 Yes Take by Univers FUMARATE 1-16 mouth. ity of (IRON ORAL) 08:12: [place] 19 Medical Branch NaCl 0.9% 2021-07 Yes Infuse Univer s (NS) SolP 1-16 once now. ity o f 250 mL with 08:12: [place] inFLIXimab 19 Medical 100 mg SolR Branch Cyanocobala 2021-[address] Unive rs min 1-16 under the ity of (VITAMIN 08:12: tongue. [place] B-12) 1,000 19 Medical mcg Subl Branch Vitamins-Li 2021-07 Yes Take by Uni vers potropics 1-16 mouth. ity of (LIPO-FLAVO 08:12: [place] NOID PLUS) 19 Medical 200-100 mg Branch Tab clonazePAM 2021-07 Yes 1mg Take 1 mg Un rozina (KLONOPIN) 1-16 by mouth ity o f 1 mg tablet 08:12: [place]. [place] 19 [facility] propafenone 2021-07 Yes 325mg Take 325 U nivers (RYTHMOL 1-16 mg by ity of SR) 325 mg 08:12: mouth 2 [place] 12 [place] 19 (two) Medical capsule times Branch daily. multivit-mi 2021-07 Yes Take by Uni vers n-FA-K-lyco 1-16 mouth. ity of pene 08:12: [place] (ONE-A-DAY 19 Medical MEN'S 50+ Branch ADVANTAGE) 400-20-370 mcg Tab losartan 2021-07 Yes 50mg Take 50 mg Uni vers (COZAAR) 1-16 by mouth ity of 100 mg 08:12: daily. [place] tablet 19 Medical Branch aspirin 81 2021-07 Yes 81mg Take 81 mg U nivers mg chewable -16 by mouth ity of tablet 08:12: daily. [place] 19 Medical Branch Cholecalcif 2021-07 Yes Take by Uni vers dillon, 1-16 mouth. ity of Vitamin D3, 08:12: [place] (VITAMIN 19 Medical D3) 2,000 Branch unit Cap hydrocortis 2021-07 Yes [id number] Apply to Univers one 2.5 % 1-16 area(s) 2 ity o f ointment 00:00: (two) [place] 00 times Medical daily as Branch needed for Rash. As needed for rash or itching. Stop when clear, restart if rash returns. hydrocortis 2021-07 Yes [id number] Apply to Univers one 2.5 % 1-16 area(s) 2 ity o f ointment 00:00: (two) [place] 00 times Medical daily as Branch needed for Rash. As needed for rash or itching. Stop when clear, restart if rash returns. hydrocortis 2021-07 Yes [id number] Apply to Univers one 2.5 % 1-16 area(s) 2 ity o f ointment 00:00: (two) [place] 00 times Medical daily as Branch needed for Rash. As needed for rash or itching. Stop when clear, restart if rash returns. hydrocortis 2021-07 Yes [id number] Apply to Univers one 2.5 % 1-16 area(s) 2 ity o f ointment 00:00: (two) [place] 00 times Medical daily as Branch needed for Rash. As needed for rash or itching. Stop when clear, restart if rash returns. hydrocortis 2021-07 Yes [id number] Apply to Univers one 2.5 % 1-16 area(s) 2 ity o f ointment 00:00: (two) [place] 00 times Medical daily as Branch needed for Rash. As needed for rash or itching. Stop when clear, restart if rash returns. hydrocortis 2021-07 Yes [id number] Apply to Univers one 2.5 % 1-16 area(s) 2 ity o f ointment 00:00: (two) [place] 00 times Medical daily as Branch needed for Rash. As needed for rash or itching. Stop when clear, restart if rash returns. hydrocortis 2021-07 Yes [id number] Apply to Univers one 2.5 % 1-16 area(s) 2 ity o f ointment 00:00: (two) [place] 00 times Medical daily as Branch needed for Rash. As needed for rash or itching. Stop when clear, restart if rash returns. hydrocortis 2021-07- No Metho di one 2.5 % 16 07-13 st ointment 00:00: 00:00 Hospita 00 :00 l clobetasoL 2021-07- No [id number] Q.5D Apply Me thodi (TEMOVATE) 0-20 12- topically st 0.05 % 00:00: 00:00 2 (two) Hospita ointment 00 :00 times a l day. levothyroxi 2022- No [id number] TAKE 1 Methodi ne 01-13 03-24 TABLET(88 st (SYNTHROID) 00:00: 00:00 MCG) BY [place] short 88 mcg 00 :00 MOUTH l tablet EVERY MORNING linaCLOtide No 145ug QD Take 1 Me thodi (LINZESS) 1-18 01-[address] 145 mcg 00:00: 05:59 (145 mcg Hospi ta capsule 00 :00 total) by l mouth daily before breakfast. spironolact 2022- No 25mg QD Take 1 Met hodi one 1-17 01-25 tablet (25 st (ALDACTONE) 00:00: 05:59 mg total) Hospita 25 MG 00 :00 by mouth l tablet daily. mupirocin 2 Yes Apply to Un rozina % ointment 1-04 area(s) 2 ity of 00:00: (two) [place] 00 times Medical daily. Branch mupirocin 2 Yes Apply to Un rozina % ointment 1-04 area(s) 2 ity of 00:00: (two) [place] 00 times Medical daily. Branch mupirocin 2 Yes Apply to Un rozina % ointment 1-04 area(s) 2 ity of 00:00: (two) [place] 00 times Medical daily. Branch mupirocin 2 Yes Apply to Un rozina % ointment 1-04 area(s) 2 ity of 00:00: (two) [place] 00 times Medical daily. Branch mupirocin 2 Yes Apply to Un rozina % ointment 1-04 area(s) 2 ity of 00:00: (two) [place] 00 times Medical daily. Branch mupirocin 2 Yes Apply to Un rozina % ointment 1-04 area(s) 2 ity of 00:00: (two) [place] 00 times Medical daily. Branch mupirocin 2 Yes Apply to Un rozina % ointment 1-04 area(s) 2 ity of 00:00: (two) [place] 00 times Medical daily. Branch mupirocin 2 0 Yes Apply to Un rozina % ointment 1-04 area(s) 2 ity of 00:00: (two) [place] 00 times Medical daily. Branch methotrexat 2020-07- No [id number] Take 2 Methodi e 2.5 MG 2-16 11-[address] tablet 00:00: 05:59 mouth once Hosp lamberto 00 :00 a week. l Cyanocobala 2018- Yes Place Unive rs min 01-22 under the ity of (VITAMIN 14:34: tongue. [place] B-12) 1,000 29 Medical mcg Subl Branch clonazePAM 2018- Yes 1mg Take 1 mg Un rozina (KLONOPIN) 08 by mouth ity o f 1 mg tablet 14:34: daily. [facility] s 29 Medical Branch multivit-mi Yes Take by Uni vers n-FA-K-lyco 7-08 mouth. ity of pene 14:34: [place] (ONE-A-DAY 29 Medical MEN'S 50+ Branch ADVANTAGE) 400-20-370 mcg Tab losartan Yes 50mg Take 50 mg Uni vers (COZAAR) 7 by mouth ity of 100 mg 14:34: daily. [place] tablet 29 Medical Branch aspirin 81 2018- Yes 81mg Take 81 mg U nivers mg chewable 08 by mouth ity of tablet 14:34: daily. [place] 29 Medical Branch Cholecalcif Yes Take by Uni vers dillon, 7-08 mouth. ity of Vitamin D3, 14:34: [place] (VITAMIN 29 Medical D3) 2,000 Branch unit Cap FERROUS Yes Take by Univers FUMARATE 7-08 mouth. ity of (IRON ORAL) 14:34: [place] 29 Medical Branch ELIQUIS 5 Yes Univers mg tablet 6-14 ity of 00:00: [place] 00 Medical Branch ELIQUIS 5 Yes Univers mg tablet 6-14 ity of 00:00: [place] 00 Medical Branch ELIQUIS 5 Yes Univers mg tablet 6-14 ity of 00:00: [place] 00 Medical Branch ELIQUIS 5 Yes Univers mg tablet 6-14 ity of 00:00: [place] [facility] ELIQUIS 5 Yes Univers mg tablet 6-14 ity of 00:00: [place] [facility] ELIQUIS 5 2018- Yes Univers mg tablet 6-14 ity of 00:00: [place] [facility] ELIQUIS 5 2018- Yes Univers mg tablet 6-14 ity of 00:00: [place] [facility] ELIQUIS 5 Yes Univers mg tablet 6-14 ity of 00:00: [place] 00 Medical Branch KCL 20 mEq Yes TAKE 2 Unive rs tablet 1-31 TABLETS(40 ity of 00:00: MEQ) BY [place] 00 MOUTH Medical DIRECTED Branch KCL 20 mEq Yes TAKE 2 Unive rs tablet 1-31 TABLETS(40 ity of 00:00: MEQ) BY [place] 00 MOUTH Medical DIRECTED Branch KCL 20 mEq Yes TAKE 2 Unive rs tablet 1-31 TABLETS(40 ity of 00:00: MEQ) BY [place] 00 MOUTH Medical DIRECTED Branch KCL 20 mEq Yes TAKE 2 Unive rs tablet 1-31 TABLETS(40 ity of 00:00: MEQ) BY [place] 00 MOUTH Medical DIRECTED Branch KCL 20 mEq Yes TAKE 2 Unive rs tablet 1-31 TABLETS(40 ity of 00:00: MEQ) BY [place] 00 MOUTH Medical DIRECTED Branch KCL 20 mEq Yes TAKE 2 Unive rs tablet 1-31 TABLETS(40 ity of 00:00: MEQ) BY [place] 00 MOUTH Medical DIRECTED Branch KCL 20 mEq Yes TAKE 2 Unive rs tablet 1-31 TABLETS(40 ity of 00:00: MEQ) BY [place] 00 MOUTH Medical DIRECTED Branch KCL 20 mEq Yes TAKE 2 Unive rs tablet 1-31 TABLETS(40 ity of 00:00: MEQ) BY [place] 00 MOUTH Medical DIRECTED Branch propafenone Yes [...] SolR Branch triamcinolo 2015-07 Yes Apply to Un rozina ne 1-14 area(s) 2 ity of acetonide 00:00: (two) [place] (TRIDERM) 00 times Medical 0.1 % cream daily. Branch triamcinolo 2015-07 Yes Apply to Un rozina ne 1-14 area(s) 2 ity of acetonide 00:00: (two) [place] (TRIDERM) 00 times Medical 0.1 % cream daily. Branch triamcinolo 2015-07 Yes Apply to Un rozina ne 1-14 area(s) 2 ity of acetonide 00:00: (two) [place] (TRIDERM) 00 times Medical 0.1 % cream daily. Branch triamcinolo 2015-07 Yes Apply to Un rozina ne 1-14 area(s) 2 ity of acetonide 00:00: (two) [place] (TRIDERM) 00 times Medical 0.1 % cream daily. Branch triamcinmima 2015-07 Yes Apply to Un rozina ne 1-14 area(s) 2 ity of acetonide 00:00: (two) [place] (TRIDERM) 00 times Medical 0.1 % cream daily. Branch triamcinolo 2015-07 Yes Apply to Un rozina ne 1-14 area(s) 2 ity of acetonide 00:00: (two) [place] (TRIDERM) 00 times Medical 0.1 % cream daily. Branch triamcinmima 2015-07 Yes Apply to Un rozina ne 1-14 area(s) 2 ity of acetonide 00:00: (two) [place] (TRIDERM) 00 times Medical 0.1 % cream daily. Branch triamcinolo 2015-07 Yes Apply to Un rozina ne 1-14 area(s) 2 ity of acetonide 00:00: (two) [place] (TRIDERM) 00 times Medical 0.1 % cream daily. Branch [facility] 10 Yes TK 15 TO Un rozina gram/15 mL 8-18 30 ML PO ity o f solution 00:00: ONE OR BID Mike as 00 PRN. Medical Branch PENTASA 500 Yes TK 1 Univer s mg CR 8-18 CAPSULE BY ity of capsule 00:00: MOUTH TID [place] [facility] 10 Yes TK 15 TO Un rozina gram/15 mL 8-18 30 ML PO ity o f solution 00:00: ONE OR BID Mike as 00 PRN. Medical Branch PENTASA 500 Yes TK 1 Univer s mg CR 8-18 CAPSULE BY ity of capsule 00:00: MOUTH TID [place] [facility] 10 Yes TK 15 TO Un rozina gram/15 mL 8-18 30 ML PO ity o f solution 00:00: ONE OR BID Mike as 00 PRN. Medical Branch PENTASA 500 Yes TK 1 Univer s mg CR 8-18 CAPSULE BY ity of capsule 00:00: MOUTH TID [facility] Branch [facility] 10 Yes TK 15 TO Un rozina gram/15 mL 8-18 30 ML PO ity o f solution 00:00: ONE OR BID Mike as 00 PRN. Medical Branch PENTASA 500 Yes TK 1 Univer s mg CR 8-18 CAPSULE BY ity of capsule 00:00: MOUTH TID Medical Branch [facility] 10 Yes TK 15 TO Un rozina gram/15 mL 8-18 30 ML PO ity o f solution 00:00: ONE OR BID Mike as 00 PRN. Medical Branch PENTASA 500 Yes TK 1 Univer s mg CR 8-18 CAPSULE BY ity of capsule 00:00: MOUTH TID Medical Branch [facility] 10 Yes TK 15 TO Un rozina gram/15 mL 8-18 30 ML PO ity o f solution 00:00: ONE OR BID Mike as 00 PRN. Medical Branch PENTASA 500 Yes TK 1 Univer s mg CR 8-18 CAPSULE BY ity of capsule 00:00: MOUTH TID Medical Branch [facility] 10 Yes TK 15 TO Un rozina gram/15 mL 8-18 30 ML PO ity o f solution 00:00: ONE OR BID Mike as 00 PRN. Medical Branch PENTASA 500 Yes TK 1 Univer s mg CR 8-18 CAPSULE BY ity of capsule 00:00: MOUTH TID [place] [facility] 10 Yes TK 15 TO Un rozina gram/15 mL 8-18 30 ML PO ity o f solution 00:00: ONE OR BID Mike as 00 PRN. Medical Branch PENTASA 500 Yes TK 1 Univer s mg CR 8-18 CAPSULE BY ity of capsule 00:00: MOUTH TID Medical Branch furosemide Yes TK 2 TS PO U nivers (LASIX) 40 6-10 D FOR 3 ity of mg tablet 00:00[place] THEN 1 T [place] [facility] furosemide Yes TK 2 TS PO U nivers (LASIX) 40 6-10 D FOR 3 ity of mg tablet 00:00: [place] 00 THEN 1 T D [facility] furosemide Yes TK 2 TS PO U nivers (LASIX) 40 6-10 D FOR 3 ity of mg tablet 00:00: [place] THEN 1 T D [facility] furosemide Yes TK 2 TS PO U nivers (LASIX) 40 6-10 D FOR 3 ity of mg tablet 00:00: [place] THEN 1 T D [facility] furosemide Yes TK 2 TS PO U nivers (LASIX) 40 6-10 D FOR 3 ity of mg tablet 00:00: [place] THEN 1 T D [facility] Branch furosemide Yes TK 2 TS PO U nivers (LASIX) 40 6-10 D FOR 3 ity of mg tablet 00:00: [place] 00 THEN 1 T D [facility] furosemide Yes TK 2 TS PO U nivers (LASIX) 40 6-10 D FOR 3 ity of mg tablet 00:00: [place] 00 THEN 1 T D [facility] Branch furosemide Yes TK 2 TS PO U nivers (LASIX) 40 6-10 D FOR 3 ity of mg tablet 00:00: [place] 00 THEN 1 T D [facility] Branch UNITHROID 0 Yes Univers 88 mcg 6-18 ity of tablet 00:00: Medical Branch UNITHROID 0 Yes Univers 88 mcg 6-18 ity of tablet 00:00: Medical Branch UNITHROID 0 Yes Univers 88 mcg 6-18 ity of tablet 00:00: Medical Branch UNITHROID 0 Yes Univers 88 mcg 6-18 ity of tablet 00:00: Medical Branch UNITHROID Yes Univers 88 mcg 6-18 ity of tablet 00:00: Medical Branch UNITHROID Yes Univers 88 mcg 6-18 ity of tablet 00:00: Medical Branch UNITHROID 0 Yes Univers 88 mcg 6-18 ity of tablet 00:00: Medical Branch UNITHROID 0 Yes Univers 88 mcg 6-18 ity of tablet 00:00: Medical Branch Vitamins-Li 2012-0 Yes Take by Uni vers potropics 6-10 mouth. ity of (LIPO-FLAVO 15:23: [place] NOID PLUS) 15 Medical 200-100 mg Branch Tab Immunizations Ordered Immunization Filled Date Status Comments Sour ce Name Immunization Name SARS-COV-2 COVID-19 2020-09-20 Completed Unive rsity of MODERNA 12+ YRS 00:00:00 [place] Med ical VACCINE Branch SARS-COV-2 COVID-19 2020-09-20 Completed Unive rsity of MODERNA 12+ YRS 00:00:00 [place] [facility] ical VACCINE Branch SARS-COV-2 COVID-19 2020-09-20 Completed Unive rsity of MODERNA 12+ YRS 00:00:00 [place] [facility] ical VACCINE Branch SARS-COV-2 COVID-19 2020-09-20 Completed Unive rsity of MODERNA 12+ YRS 00:00:00 [place] [facility] ical VACCINE Branch SARS-COV-2 COVID-19 2020-09-20 Completed Unive rsity of MODERNA VACCINE 00:00:00 [place] [facility] SARS-COV-2 COVID-19 2020-09-20 Completed Unive rsity of MODERNA 12+ YRS 00:00:00 [place] [facility] ical VACCINE Branch SARS-COV-2 COVID-19 2020-09-20 Completed Unive rsity of MODERNA 12+ YRS 00:00:00 [place] [facility] ical VACCINE Branch SARS-COV-2 COVID-19 2020-09-20 Completed Unive rsity of MODERNA 12+ YRS 00:00:00 [place] [facility] ical VACCINE Branch SARS-COV-2 COVID-19 2020-08-23 Completed Unive rsity of MODERNA 12+ YRS 00:00:00 [place] [facility] ical VACCINE Branch SARS-COV-2 COVID-19 2020-08-23 Completed Unive rsity of MODERNA 12+ YRS 00:00:00 [place] [facility] ical VACCINE Branch SARS-COV-2 COVID-19 2020-08-23 Completed Unive rsity of MODERNA 12+ YRS 00:00:00 [place] [facility] ical VACCINE Branch SARS-COV-2 COVID-19 2020-08-23 Completed Unive rsity of MODERNA 12+ YRS 00:00:00 [place] [facility] ical VACCINE Branch SARS-COV-2 COVID-19 2020-08-23 Completed Unive rsity of MODERNA VACCINE 00:00:[address] [facility] SARS-COV-2 COVID-19 2020-08-23 Completed Unive rsity of MODERNA 12+ YRS 00:00:00 [facility] VACC[facility] Branch SARS-COV-2 COVID-19 2020-08-23 Completed Unive rsity of MODERNA 12+ YRS 00:00:00 [facility] VACCINE Branch SARS-COV-2 COVID-19 2020-08-23 Completed Unive rsity of MODERNA 12+ YRS 00:00:00 [facility] VACCINE Branch Hep A / Hep B Unknown Com[facility] Hepatitis B Unknown Completed [facility] Hepatitis A Unknown Completed [facility] FLUZONE QUAD Unknown Completed [facility] FLUAD PF Unknown Completed [facility] Pneumococcal Unknown Completed [facility] Pneumococcal Unknown Completed [facility] Zoster Unknown Completed [facility] Tdap Unknown Completed [facility] Zoster Vaccine Unknown Completed [facility]orship Recombinant [facility] Zoster Vaccine Unknown Completed Worship Recombinant [facility] COVID-19 Unknown Completed [facility] COVID-19 Unknown Completed [facility] COVID-19 Unknown Completed [facility] FLUZONE HIGH-DOSE PF Unknown Completed [facility] Pneumococcal Unknown Completed [facility] FLUZONE HIGH-DOSE PF Unknown Completed [facility] FLUZONE HIGH-DOSE PF Unknown Completed [facility] COVID-19 Unknown Completed [facility] FLUZONE HIGH-DOSE PF Unknown Completed [facility] COVID-19 Unknown Completed [facility]AL[facility] Hospital BOOSTER VACCINATION Vital Signs Vital Name Observation Time Observation Value Comments Source Body height 2022-06-02 15:06:00 177.8 cm [facility] Systolic blood 2023-05-16 17:30:00 115 mm[Hg] [facility] pressure Diastolic blood 2023-05-16 17:30:00 81 mm[Hg] [facility] pressure Heart rate 2023-05-16 17:30:00 81 /min [facility] Body weight 2023-05-16 15:16:00 87.091 kg [facility] BMI 2023-05-16 15:16:00 26.04 kg/m2 [facility] Body temperature 2023-01-27 19:49:00 36.56 Ashley [facility] Body height 2023-01-27 19:49:00 182.9 cm [facility] Oxygen saturation in 2023-01-27 19:49:00 100 /min [facility] Arterial blood by Pulse oximetry Respiratory rate 2022-08-10 20:10:00 15 /min [facility] Procedures Procedure Date / Time Performing Clinician Source Performed CBC WITH PLATELET AND 2023-05-16 15:30:00 [facility] DIFFERENTIAL Luis Carlos COMPREHENSIVE METABOLIC 2023-05-16 15:30:00 [facility] PANEL Luis Carlos SEDIMENTATION RATE 2023-05-16 15:30:00 [facility] Luis Carlos C-REACTIVE PROTEIN 2023-05-16 15:30:00 [facility] Luis Carlos FERRITIN LEVEL 2023-05-16 15:30:00 [facility] Luis Carlos TOTAL IRON BINDING 2023-05-16 15:30:00 [facility] CAPACITY Luis Carlos VITAMIN D 25 HYDROXY 2023-05-16 15:30:00 [facility] LEVEL Luis Carlos VITAMIN B12 LEVEL 2023-05-16 15:30:00 [facility] Luis Carlos FOLATE LEVEL 2023-05-16 15:30:00 [facility]ital Luis Carlos QUANTIFERON-TB GOLD 2023-05-16 15:30:00 [facility] PLUS, 1 TUBE Luis Carlos SPECIMEN INTEGRITY 2023-05-16 15:30:00 [facility] COMPROMISED Luis Carlos CBC WITH PLATELET AND 2023-01-19 15:40:00 [facility] DIFFERENTIAL Luis Carlos COMPREHENSIVE METABOLIC 2023-01-19 15:40:00 [facility] PANEL Luis Carlos SEDIMENTATION RATE 2023-01-19 15:40:00 [facility] Luis Carlos C-REACTIVE PROTEIN 2023-01-19 15:40:00 [facility] Luis Carlos VITAMIN D 25 HYDROXY 2023-01-19 15:40:00 [facility] LEVEL Luis Carlos VITAMIN B12 LEVEL 2023-01-19 15:40:00 [facility] Luis Carlos FECAL CALPROTECTIN 2022-12-10 15:23:00 [facility] Luis Carlos COMPREHENSIVE METABOLIC 2022-09-29 15:30:00 [facility] PANEL Luis Carlos FERRITIN LEVEL 2022-09-29 15:30:00 [facility] Carlos TOTAL IRON BINDING 2022-09-29 15:30:00 [facility] CAPACITY Luis Carlos VITAMIN D 25 HYDROXY 2022-09-29 [facility]:[address] [facility] VITAMIN B12 LEVEL 2022-09-29 15:30:00 [facility] CBC WITH PLATELET AND 2022-09-21 22:40:00 [facility] DIFFERENTIAL Luis Carlos SEDIMENTATION RATE 2022-09-21 22:40:00 [facility] Luis Carlos C-REACTIVE PROTEIN 2022-09-21 22:40:00 [facility] Luis Carlos THYROID STIMULATING 2022-09-21 22:40:00 [facility] HORMONE Luis Carlos T4, FREE 2022-09-21 22:40:00 Kathleen [facility] ospital Luis Carlos T3 2022-09-21 22:40:00 Kathleen [facility] ospital Luis Carlos SURGICAL PATHOLOGY 2022-08-10 20:17:00 [facility] REQUEST Luis Carlos COLONOSCOPY 2022-08-10 18:43:00 [facility] CBC WITH PLATELET AND 2022-08-04 16:40:00 [facility] DIFFERENTIAL Luis Carlos COMPREHENSIVE METABOLIC 2022-08-04 16:40:00 [facility] PANEL Luis Carlos SEDIMENTATION RATE 2022-08-04 16:40:00 [facility] Luis Carlos C-REACTIVE PROTEIN 2022-08-04 16:40:00 [facility] Luis Carlos FERRITIN LEVEL 2022-08-04 16:40:00 [facility]ital Luis Carlos TOTAL IRON BINDING 2022-08-04 16:40:00 [facility] CAPACITY Luis Carlos VITAMIN D 25 HYDROXY 2022-08-04 16:40:00 [facility] LEVEL Luis Carlos VITAMIN B12 LEVEL 2022-08-04 16:40:00 [facility] Luis Carlos FOLATE LEVEL 2022-08-04 16:40:00 [facility]ital Luis Carlos FECAL CALPROTECTIN 2022-07-20 22:26:00 [facility] Luis Carlos CBC WITH PLATELET AND 2022-07-08 18:50:00 [facility] DIFFERENTIAL Luis Carlos TOTAL IRON BINDING 2022-07-08 18:50:00 [facility] CAPACITY Luis Carlos FERRITIN LEVEL 2022-07-08 18:50:00 [facility]ital Luis Carlos C-REACTIVE PROTEIN 2022-07-08 18:50:00 [facility] Luis Carlos SEDIMENTATION RATE 2022-07-08 18:50:00 [facility] Luis Carlos Plan of Care Planned Activity Planned Date Details Comments Source Future Scheduled 2023-05-25 [facility] 08:17:07 malignant neoplasm of colon (procedure) [code = 285173186] Future Scheduled 2023-05-25 [facility] 08:17:07 malignant neoplasm of colon (procedure) [code = 365990204] Future Scheduled 2023-05-25 [facility] 08:17:07 malignant neoplasm of colon (procedure) [code = 136653613] Future Scheduled 2023-05-25 COVID-19 VACCINE ([facility] 08:17:07 - season) [code = COVID-19 VACCINE ( season)] Future Scheduled 2023-05-25 INFLUENZA VACCINE [facility] 08:17:07 (#1) [code = INFLUENZA VACCINE (#1)] Future Scheduled 2023-05-25 [facility] 08:17:07 malignant neoplasm of colon (procedure) [code = 679167998] Future Scheduled 2023-05-25 [facility] 08:17:07 malignant neoplasm of colon (procedure) [code = 591127043] Encounters Start End Encounter Admission Attending Care Care Encounter Source Date/Time Date/Time Type Type Clinicians Facility Department ID 2023-05-16 2023-05-16 Infusion 1.2.840.1 [id number] [facility] 10:00:00 12:40:[address] 3.430.2.7 Hospit a .3.351749 l .8 2023-05-16 2023-05-16 Outpatient [facility] [id number] [address] [place] [address] 00:00:00 00:00:[address] 2023-03-16 2023-03-16 Infusion 1.2.840.1 [id number] [facility] 10:15:00 12:51:[address] 3.430.2.7 Hospit a .3.234931 l .8 2023-03-16 2023-03-16 Outpatient [facility] [id number] [facility] 00:00:00 00:00:[address] 2023-01-31 2023-01-31 Outpatient Kirti [facility]BORN [facility] [id number] [facility] 14:30:00 15:31:27 MAREK weir [facility] 2023-01-31 2023-01-31 Office XAVI Osborn 1.2.840.114 [id number] [facility] 14:30:00 15:31:27 Visit Marek ARELLANO 350.1.13.10 Kaitlyn 4.2.7.2.686 [facility] [id number] [address] [facility] 2023-01-27 2023-01-27 Office Kimberly, 1.2.840.1 [id number] [facility] 14:45:00 15:22:21 Visit Solomon 49935.1.[address] 3.430.2.7 Hospit a .3.594889 l .8 2023-01-27 2023-01-27 [facility] [id number] [place] 00:00:00 00:00:00 SOLOMON [address] 2023-01-25 2023-01-25 Office Kathleen, 1.2.840.1 [id number] [facility] 14:00:00 14:45:39 Visit Isiah 28139.1.[address] [place] 3.430.2.7 Hospit a .3.698417 l .8 2023-01-25 2023-01-25 [facility] [id number] [facility] 00:00:00 00:00:00 ISIAH [address] 2023-01-19 2023-01-19 Infusion 1.2.840.1 [id number] [facility] 10:15:00 12:43:[address] 3.430.2.7 Hospit a .3.473580 l .8 2023-01-19 2023-01-19 Outpatient [facility] [id number] [place] 00:00:00 00:00:[address] 2022-11-24 2022-11-24 Infusion 1.2.840.1 [id number] [facility] 10:15:00 13:07:[address] 3.430.2.7 Hospit a .3.789824 l .8 2022-11-24 2022-11-24 Travel 1.2.840.1 1.2.844.221 7400 [id number] [facility] 00:00:00 00:00:[address] 3.430.2.7 0.2.7.3.698 Ho spita .3.719222 084.8 l .8 2022-11-242022-11-24 Outpatient [facility] [id number] [facility] 00:00:00 00:00:[address] 2022-11-05 2022-11-05 Orders Kauffman, 1.2.840.1 [id number] Methodi 00:00:00 00:00:00 Only Yolis 72756.1.[address] 3.430.2.7 Hospit a .3.863112 l .8 2022-10-08 2022-10-08 Refill Kimberlynigel, 1.2.840.1 [id number] [facility] 00:00:00 00:00:[address] 3.430.2.7 Hospit a .3.106381 l .8 2022-09-29 2022-09-29 Infusion 1.2.840.1 [id number] [facility] 10:15:00 12:42:[address] 3.430.2.7 Hospit a .3.061720 l .8 2022-09-29 2022-09-29 Travel 1.2.840.1 1.2.350.094 [id number] Methodi 00:00:00 00:00:[address] 3.430.2.7 0.2.7.3.698 Ho spita .3.915137 084.8 l .8 2022-09-29 2022-09-29 Outpatient [facility] [id number] [facility] 00:00:00 00:00:[address] 2022-09-23 2022-09-23 Office Kathleen, 1.2.840.1 [id number] Methodi 14:00:00 14:50:19 Visit Isiah 43661.1.[address] [place] 3.430.2.7 Hospit a .3.188276 l .8 2022-09-23 2022-09-23 Travel 1.2.840.1 1.2.613.037 0744 [id number] [facility] 00:00:00 00:00:[address] 3.430.2.7 0.2.7.3.698 spita .3.906568 084.8 l .8 2022-09-23 2022-09-23 Outpatient KATHLEEN [facility] [id number] [place] 00:00:00 00:00:00 ISIAH [address] 2022-09-20 2022-09-20 [id number] [facility] 15:15:00 15:15:00 MAREK weir [facility] 2022-09-14 2022-09-14 Orders Jamari, 1.2.840.1 [id number] Methodi 00:00:00 00:00:00 Only Yolis 23263.1.[address] 3.430.2.7 Hospit a .3.132389 l .8 2022-09-02 2022-09-02 Orders Jamari, 1.2.840.1 [id number] 0674 Methodi 00:00:00 00:00:00 Only Yolis 95604.1.[address] 3.430.2.7 Hospit a .3.043571 l .8 2022-08-26 2022-08-26 Telephone Sanchez, 1.2.840.1 [id number] [facility] 00:00:00 00:00:[address] 3.430.2.7 Hospit a .3.657110 l .8 2022-08-10 2022-08-10 [facility], 1.2.840.1 [id number] Methodi 09:57:00 14:39:00 Encounter Isiah 08952.1.[address] [place] 3.430.2.7 Hospit a .3.332700 l .8 2022-08-10 2022-08-10 Anesthesia Hannah Patel ta 1.2.840.1 [id number] Methodi 12:43:00 13:52:00 Event Chelsea [place] 50500.1.[address] 3.430.2.7 Hospit a .3.851672 l .8 2022-08-10 2022-08-10 Surgery Kathleen, 1.2.840.1 [id number] [facility] 11:00:00 12:00:[address] [place] 3.430.2.7 Hospit a .3.174215 l .8 2022-08-10 2022-08-10 [id number] [facility] 00:00:00 00:00:00 ISIAH [address] 2022-08-10 2022-08-10 Travel 1.2.840.1 1.2.880.043 [id number] [id number] Method[facility] 00:00:00 00:00:[address] 3.430.2.7 0.2.7.3.698 Ho spita .3.385390 084.8 l .8 2022-08-06 2022-08-06 Orders Kauffman, 1.2.840.1 [id number] Method[facility] 00:00:00 00:00:00 Only Yolis 39069.1.[address] 3.430.2.7 Hospit a .3.046865 l .8 2022-08-06 2022-08-06 Travel 1.2.840.1 1.2.110.973 [id number] Methodi 00:00:00 00:00:[address] 3.430.2.7 0.2.7.3.698 Ho spita .3.770800 084.8 l .8 2022-08-04 2022-08-04 Infusion 1.2.840.1 [id number] [facility] 10:15:00 12:41:[address] 3.430.2.7 Hospit a .3.139636 l .8 2022-08-04 2022-08-04 Outpatient [facility] [id number] [place] 00:00:00 00:00:[address] 2022-08-04 2022-08-04 Travel 1.2.840.1 1.2.006.589 [id number] [id number] Methodi 00:00:00 00:00:[address] 3.430.2.7 0.2.7.3.698 Ho spita .3.673472 084.8 l .8 2022-07-21 2022-07-21 Telephone Kathleen, 1.2.840.1 [id number] Method[facility] 00:00:00 00:00:[address] [place] 3.430.2.7 Hospit a .3.797483 l .8 2022-07-14 2022-07-14 Orders Kauffman, 1.2.840.1 [id number] Method[facility] 00:00:00 00:00:00 Only Yolis 04993.1.[address] 3.430.2.7 Hospit a .3.728583 l .8 2022-07-02 2022-07-02 Orders Kauffman, 1.2.840.1 [id number] Method[facility] 00:00:00 00:00:00 Only Yolis 71579.1.[address] 3.430.2.7 Hospit a .3.644294 l .8 2022-06-22 2022-06-22 Travel 1.2.840.1 1.2.456.818 2685 [id number] Methodi 00:00:00 00:00:[address] 3.430.2.7 0.2.7.3.698 Ho spita .3.838453 084.8 l .8 2022-06-17 2022-06-17 Office [facility], 1.2.840.1 [id number] Methodi 14:00:00 14:29:47 Visit Solomon 44098.1.[address] 3.430.2.7 Hospit a .3.887847 l .8 2022-06-17 2022-06-17 Outpatient [facility] [id number] [place] 00:00:00 00:00:00 BRANKA [address] 2022-06-16 2022-06-16 Orders Kathleen, 1.2.840.1 [id number] [facility] 00:00:00 00:00:00 Only Isiah 81344.1.[address] [place] 3.430.2.7 Hospit a .3.427004 l .8 2022-06-07 2022-06-07 Infusion 1.2.840.1 [id number] 27252 [facility] 10:15:00 12:56:[address] 3.430.2.7 Hospit a .3.814743 l .8 2022-06-07 2022-06-07 Outpatient [facility] [id number] [place] 00:00:00 00:00:[address] 2022-06-07 2022-06-07 Travel 1.2.840.1 1.2.450.121 1143 [id number] [facility] 00:00:00 00:00:[address] 3.430.2.7 0.2.7.3.698 Ho spita .3.258759 084.8 l .8 2022-06-02 2022-06-02 Office Lalitha Galvan [facility] 1.2.840.114 [id number] Univers 09:00:00 09:15:00 Visit Marek Osborn MULTISPEC 350.1.1 3.10 [facility] СВЕТЛАНА 4.2.7.2.686 [facility] [id number] [address] [facility] 2022-06-02 2022-06-02 Outpatient [facility] [id number] [facility] 09:00:00 09:00:00 MAREK weir [facility] 2022-05-06 2022-05-06 Outpatient [facility] [id number] [place] 00:00:00 00:00:[address] BRANKA [address] 2022-05-06 2022-05-06 [facility] [id number] [place] 00:00:00 00:00:00 BRANKA 790 Method i 2022-04-14 2022-04-14 Outpatient [facility] [id number] [place] 00:00:00 00:00:[address] 2022-03-15 2022-03-15 Outpatient Kirti OSBORN [facility] [id number] [facility] 11:15:00 12:01:57 MAREK weir [facility] 2022-03-15 2022-03-15 [facility] 1.2.840.114 [id number] [facility] 11:15:00 12:01:57 Visit Marek ARELLANO 350.1.13.10 carmella [facility] 4.2.7.2.686 [facility] [id number] [address] [facility] 2022-02-15 2022-02-15 Outpatient [facility] [id number] [address] 00:00:00 00:00:00 [address]95 [facility] 2022-02-15 2022-02-15 Outpatient KATHLEEN, [facility] [id number] [address] 00:00:00 00:00:00 ISIAH [address] [facility] 2021-12-17 2021-12-17 Outpatient BILL, [facility] [id number] [address] 00:00:00 00:00:00 SOLOMON [address] [facility] 2021-12-16 2021-12-16 Outpatient [facility] [id number] [address] 00:00:00 00:00:00 457 [facility] 2021-11-09 2021-11-09 Outpatient KATHLEEN, [facility] [id number] [facility] 00:00:00 00:00:00 ISIAH 344 [facility] 2021-10-21 2021-10-21 Outpatient [facility] [id number] [facility] 00:00:00 00:00:[address] 2021-10-12 2021-10-12 Outpatient KATHLEEN, [facility] [id number] [facility] 00:00:00 00:00:00 ISIAH 096 [facility] 2021-08-26 2021-08-26 Outpatient [facility] [id number] [facility] 00:00:00 00:00:[address] 2021-08-14 2021-08-14 Outpatient KATHLEEN, [facility] [id number] [facility] 00:00:00 00:00:00 ISIAH 805 [facility] 2021-07-21 2021-07-21 [facility] [id number] [facility] 10:15:00 10:52:48 Visit Marek Chairez [facility] [id number] ity of [facility] [id number] [facility] [id number] [address] [facility] 2021-07-21 2021-07-21 Outpatient Kirti [facility] [id number] Univers 10:15:00 10:52:48 MAREK [facility] 2021-07-21 2021-07-21 Outpatient Kirti [facility] [id number] Univers 10:15:00 10:15:00 MAREK [facility] 2021-07-21 2021-07-21 [facility] 1.2.840.114 [id number] Univers 00:00:00 00:00:00 Marek Cahirez MULTISPEC 350.1.13.10 ity of [place] 4.2.7.2.686 [facility] [id number] [address] [facility] 2021-07-20 2021-07-20 Outpatient BILL [facility] [id number] [place] 00:00:00 00:00:00 SOLOMON La Method i 2021-07-14 2021-07-14 Telephone Claudia Topete [facility] 1.2.840.114 [id number] Univers 00:00:00 00:00:00 MULTISPEC 350.1.13.10 ity of [place] 4.2.7.2.686 [facility] [id number] [address] [facility] 2021-07-06 2021-07-06 Outpatient Kirti [facility] [id number] Univers 13:00:00 15:30:37 MAREK [facility] 2021-07-06 2021-07-06 Office [facility] 1.2.840.114 [id number] Univers 13:00:00 15:30:37 Visit Marek Contreras MULTISPEC 350.1.13.10 [place] [id number] [address] [facility] 2021-07-06 2021-07-06 Outpatient [facility] [id number] [facility] 13:00:00 15:30:37 [facility] 2021-07-01 2021-07-01 Outpatient [facility] [id number] [place] 00:00:00 00:00:[address] 2021-06-29 2021-06-29 Outpatient [facility] [id number] [facility] 08:00:00 08:00:00 MAREK [facility] 2021-06-19 2021-06-19 [facility]phone [facility] 1.2.840.114 [id number] [facility] 00:00:00 00:00:00 Marek Chairez MULTISPEC 350.1.13.10 ity of [place] 4.2.7.2.686 [facility] [place] [id number] [address] [facility] 2021-06-16 2021-06-16 Outpatient [facility] [id number] [place] 00:00:00 00:00:00 BRANKA [address] 2021-05-06 2021-05-06 Outpatient [facility] [id number] [place] 00:00:00 00:00:[address] 2021-05-01 2021-05-01 Outpatient [facility] [id number] [place] 00:00:00 00:00:00 BRANKA [address] 2021-03-12 2021-03-12 Office Xavi Brownlee [facility] 1.2.840.114 [id number] Univers 13:58:40 14:28:42 Visit Dayami Acharya MULTISPEC 350.1.13. 10 [place] [id number] [address] [facility] 2021-03-12 2021-03-12 Outpatient R [facility] [id number] Univers 14:00:00 14:00:00 ity [facility] 2021-03-11 2021-03-11 Outpatient [facility] [id number] [place] 00:00:00 00:00:00 533 Method i 2021-01-26 2021-01-26 Outpatient R ANURAG, [facility] [id number] Univers 15:00:00 15:00:00 MAREK ity [facility] 2021-01-16 2021-01-16 Outpatient [facility] [id number] [place] 00:00:00 00:00:00 506 Method i 2021-01-16 2021-01-16 Outpatient KATHLEEN, [facility] [id number] [place] 00:00:00 00:00:00 ISIAH 735 Method i 2020-11-20 2020-11-20 Outpatient [facility] [id number] [place] 00:00:00 00:00:00 183 Method i 2020-10-30 2020-10-30 Outpatient KATHLEEN, [facility] [id number] [place] 00:00:00 00:00:00 ISIAH 726 Method i 2020-10-30 2020-10-30 Outpatient KATHLEEN, [facility] [id number] [place] 00:00:00 00:00:00 ISIAH 727 Method i 2020-09-26 2020-09-26 Outpatient [facility] [id number] [place] 00:00:00 00:00:00 685 Method i 2020-09-25 2020-09-25 Outpatient KOSARAC, [facility] [id number] [place] 00:00:00 00:00:00 BRANKA 678 Method i 2020-09-20 2020-09-20 Outpatient [facility] [id number] Univers 11:50:00 11:50:00 ity [facility] 2020-09-08 2020-09-08 Telephone Kem [facility] [id number] [id number] Univers 00:00:00 00:00:00 [facility] 4.2.7.2.686 [facility] [id number] [address] [facility] 2020-08-23 2020-08-23 Outpatient [facility] [id number] Univers 11:40:00 11:40:00 ity of [facility] 2020-08-22 2020-08-22 Outpatient Kirti WORLEY, [facility] [id number] Univers 14:45:00 14:45:00 BARBARA ity [facility] 2020-08-05 2020-08-05 Outpatient ESEQUIELI, [facility] [id number] [place] 00:00:00 00:00:00 EDY 082 Method i 2020-08-01 2020-08-01 Outpatient [facility] [id number] [place] 00:00:00 00:00:[address] 2020-07-30 2020-07-30 Office Xavi Brownlee [facility] 1.2.840.114 [id number] Univers 13:27:06 14:18:30 Visit Manny MannPEC 350.1.13.10 ity [facility] 4.2.7.2.686 [facility] [id number] [address] [facility] 2020-07-30 2020-07-30 Outpatient MANNY ANDERSON [facility] [id number] Univers 13:30:00 13:30:00 MANNY MANN i [facility] 2020-07-30 2020-07-30 Orders Doctor GRANADOS 1.2.840.114 [id number] Univers 00:00:00 00:00:00 Only Unassigned, MOHAN 350.1.13.10 [facility] 4.2.7.2.686 [facility] [id number] [place] [address] [place] 2020-06-26 2020-06-26 Outpatient [facility] [id number] [place] 00:00:00 00:00:[address] 2020-06-26 2020-06-26 Outpatient PALAKARA, [facility] [id number] [place] 00:00:00 00:00:00 BRANKA [address] 2020-06-06 2020-06-06 Outpatient [facility] [id number] [place] 00:00:00 00:00:[address] 2020-04-11 2020-04-11 Outpatient [facility] [id number] [place] 00:00:00 00:00:[address] 2020-04-07 2020-04-07 Outpatient Kirti OSBORN [facility] [id number] [facility] 14:25:00 14:25:00 MAREK weir [facility] 2020-03-05 2020-03-05 Outpatient [facility] [id number] [place] 00:00:00 00:00:[address] 2020-02-27 2020-02-27 Outpatient [facility] [id number] [place] 00:00:00 00:00:[address] 2020-02-08 2020-02-08 Outpatient [facility] [id number] [place] 00:00:00 00:00:[address] 2020-01-09 2020-01-09 Outpatient [facility] [id number] [place] 00:00:00 00:00:[address] 2020-01-09 2020-01-09 Outpatient KATHLEEN, [facility] [id number] [place] 00:00:00 00:00:00 ISIAH [address] 2019-12-21 2019-12-21 Outpatient [facility] [id number] [place] 00:00:00 00:00:[address] 2019-12-12 2019-12-12 Outpatient [facility] [id number] [place] 00:00:00 00:00:[address] 2019-10-16 2019-10-16 Outpatient [facility] [id number] [place] 00:00:00 00:00:[address] 2019-09-17 2019-09-17 [facility] 1.2.840.114 [id number] [facility] 14:59:29 15:09:29 Visit aMrek ARELLANO 350.1.13.10 Colleen 4.2.7.2.686 [facility] [id number] [address] [facility] 2019-09-17 2019-09-17 Outpatient [facility]i [facility] [id number] [facility] 15:00:00 15:00:00 MAREK weir [facility] 2019-09-17 2019-09-17 Orders Doctor DARWIN 1.2.840.114 [id number] [facility] 00:00:00 00:00:00 Only Unassigned, MOHAN 350.1.13.10 ity [place] [facility] 4.2.7.2.686 Mike as [id number] [facility] 009 [place] 2019-09-14 2019-09-14 Outpatient [facility] [id number] [place] 00:00:00 00:00:00 OTRAMAINE [address] 2019-05-08 2019-05-09 Outpatient [facility] [id number] [place] 00:00:00 00:00:00 O, TRAMAINE [address] Results Test Description Test Time Test Comments Results Result Comments Source QuantiFERON-TB Gold Plus, 1 Tube 2023-05-19 11:49:00 Test Item Value Reference Range Interpretation Comme nts Quantiferon TB gold NEGATIVE NEGATIVE Negative test result. M. plus (test code = tuberculos is complex 51585-1) infection unlik mireya. Quantiferon NIL (test 0.01 IU/mL code = 52886-9) Quantiferon mitogen 8.23 IU/mL minus NIL (test code = 71759-7) Quantiferon plus TB1 0.01 IU/mL minus NIL (test code = 94535-4) Quantiferon plus TB2 0.01 IU/mL The Ni l tube value reflects minus NIL (test code = the b ackground 93995-7) interferongamma immune response of the patient's blood sample.Th is value has been subtracted from the patient'sdispla yed TB and Mitogen results . Lower than expected result s with the Mitogen tubepre vent false-negative Quantiferon readings bydete cting a patient with a potential immunesuppressi ve condition and/or suboptim al pre-analyticals pecimen handling. The T B1 Antigen tube is coated with theM. tuberculosis-sp ecific antigens design ed to elicitresponses from TB antigen primed CD4+ helperT-lymphoc ytes. The TB2 Antigen tube is coated with theM. tuberculo sis-specific antigens design ed to elicitresponses from TB antigen primed CD4+ helper and CD8+cytotox ic T-lymphocytes. For additional info rmation, please refer [email or web address] amos.HauteLook/fa q/CXD317(This link is being p rovided for informational/e ducational purposes only.) RAC (test code = RAC) Performing Organization Information: Site ID: CALEB Name: [facility] Address: [address] [place] [address] Director: Ilia Patel [facility] [id number] 04:20:00 Test Item Value Reference Range Interpretation Comments Glucose (test code = 94 mg/dL 65-99 Fastin g 2345-7) reference interval BUN (test code = 18 mg/dL 7-25 3094-0) Creatinine (test 0.75 mg/dL 0.70-1.28 code = 2160-0) eGFR (test code = 95 See_Comment [Automate d 19600-7) message] The system which generated this result transmitted reference range : > OR = 60 mL/min/1.73m2. The reference range was not used to interpr et this result as normal/abnormal . BUN/creatinine ratio SEE NOTE: See_Comment Not Re ported: (test code = 3097-3) BUN and Creatinine are within referenc e range. [Automat ed message] The system which generated this result transmitted reference range : 6 - 22 (calc). The reference range was not used to interpr et this result as normal/abnormal . Sodium (test code = 138 mmol/L 297-950 9175-2) Potassium (test code 5.5 mmol/L 3.5-5.3 H Red bl ood cells = 2823-3) were present in the sample upon receiptin the laboratory. A false elevation of K, Phos and LDas well as a false decrease in Glucose may occ ur due to prolonge d contact with re d cells. Chloride (test code 104 mmol/L 98-110 = 5-0) CO2 (test code = 24 mmol/L 20-32 2027-9) Calcium (test code = 8.9 mg/dL 8.6-10.3 06365-1) Protein (test code = 6.5 g/dL 6.1-8.1 2885-2) Albumin (test code = 3.9 g/dL 3.6-5.1 1751-7) Globulin, total 2.6 See_Comment [Automated (test code = message] The 55353-4) system which generated this result transmitted reference range : 1.9 - 3.7 g/dL (calc). The reference range was not used to interpret this result as normal/abnormal . Albumin/globulin 1.5 See_Comment [Automated ratio (test code = message] The 1750) system which generated this result transmitted reference range : 1.0 - 2.5 (calc ). The reference range was not used to interpr et this result as normal/abnormal . Total bilirubin 0.5 mg/dL 0.2-1.2 (test code = 1974-2) Alkaline phosphatase 84 U/L 35-144 (test code = 6768-6) AST (test code = 28 U/L 10-35 Results [facility] 1919-8) increased due t o hemolysis. ALT (test code = 11 U/L 9-46 1742-6) RAC (test code = Performing RAC) Organization Information: Site ID: [facility] Name: [facility] Address: [address] [place] [phone] Director: Ilia Patel Lab Interpretation Abnormal (test code = 28488-1) [facility] HospitalVitamin B12 [id number] 04:20:00 Test Item Value Reference Range Interpretation Comments Vitamin B12 (test code = 1266 pg/mL 200-1100 H 2132-9) RAC (test code = RAC) Performing Organization Information: Site ID: [facility] Name: [facility] Lab Address: [address] [place] [phone] Director: Ilia Patel Lab Interpretation (test Abnormal code = 92755-4) [facility] HospitalFerritin [id number] 04:20:00 Test Item Value Reference Range Interpretation Comments Ferritin level (test 8 ng/mL 24-380 L code = 2276-4) RAC (test code = RAC) Performing Organization Information: Site ID: [facility] Name: [facility] Lab Address: [address] [place] [phone] Director: Ilia Patel Lab Interpretation (test Abnormal code = 75277-8) [facility] HospitalFolate [id number] 04:20:00 Test Item Value Reference Range Interpretation Comments Folate (test 21.8 ng/mL Reference Rang e code = 2284-8) Low: <3.4 Borderline: 3.4-5.4 Normal: >5.4 RAC (test code Performing = RAC) Organization Information: Site ID: CALEB Name: [facility] Lab Address: [address] [place] [phone] Director: [facility]-reactive [id number] 04:20:00 Test Item Value Reference Range Interpretation Comments CRP (test code = 2.2 mg/L <=8.0 1988-5) RAC (test code = Performing Organization RAC) Information: Site ID: CALEB Name: [facility] Lab Address: [address] [place] [phone] Director: [facility] with platelet and [id number] 04:20:00 Test Item Value Reference Range Interpretation Comments WBC (test code = 5.5 See_Comment [Automated 6690-2) message] The system which generated this result transmitted reference range : 3.8 - 10.8 Thousand/uL. Th e reference range was not used to interpret this result as normal/abnormal . RBC (test code = 3.70 See_Comment L [Automated 799-8) message] The system which generated this result transmitted reference range : 4.20 - 5.80 Million/uL. The reference range was not used to interpret this result as normal/abnormal . HGB (test code = 10.9 g/dL 13.2-17.1 L 718-7) HCT (test code = 33.9 % 38.5-50.0 L 4544-3) MCV (test code = 91.6 fL 80.0-100.0 787-2) MCH (test code = 29.5 pg 27.0-33.0 785-6) MCHC (test code = 32.2 g/dL 32.0-36.0 786-4) RDW (test code = 14.4 % 11.0-15.0 788-0) Platelet count (test 244 See_Comment [Autom ated code = 777-3) message] The system which generated this result transmitted reference range : 140 - 400 Thousand/uL. Th e reference range was not used to interpret this result as normal/abnormal . MPV (test code = 10.4 fL 7.5-12.5 776-5) Neutrophils, 4334 See_Comment [Automated absolute (test code message] The = 751-8) system which generated this result transmitted reference range : 1,500 - 7,800 cells/uL. The reference range was not used to interpret this result as normal/abnormal . Lymphocytes, 501 See_Comment L [Automated absolute (test code message] The = 731-0) system which generated this result transmitted reference range : 850 - 3,900 cells/uL. The reference range was not used to interpret this result as normal/abnormal . Monocytes, absolute 539 See_Comment [Automa ita (test code = 742-7) message] The system which generated this result transmitted reference range : 200 - 950 cells/uL. The reference range was not used to interpret this result as normal/abnormal . Eosinophils, 99 See_Comment [Automated absolute (test code message] The = 711-2) system which generated this result transmitted reference range : 15 - 500 cells/uL. The reference range was not used to interpret this result as normal/abnormal . Basophils, absolute 28 See_Comment [Automa ita (test code = 704-7) message] The system which generated this result transmitted reference range : 0 - 200 cells/u L. The reference range was not used to interpr et this result as normal/abnormal . Neutrophils (test 78.8 % code = 770-8) Lymphocytes (test 9.1 % code = 736-9) Monocytes (test code 9.8 % = 5905-5) Eosinophils (test 1.8 % code = 713-8) Basophils + RC (test 0.5 % code = 706-2) RAC (test code = Performing RAC) Organization Information: Site ID: RGA Name: [facility] Lab Address: [address] [place] [phone] Director: Ilia Patel Lab Interpretation Abnormal (test code = 22689-0) [facility] [id number] 04:20:00 Test Item Value Reference Range Interpretation Comments Sedimentation rate 6 mm/h See_Comment [Automat ed (test code = 4537-7) message ] The system which generated this result transmitted reference range : < OR = 20. The reference range was not used to interpret this result as normal/abnormal . RAC (test code = Performing RAC) Organization Information: Site ID: CALEB Name: [facility] Address: [address] [place] [phone] Director: [facility] HealthVitamin D 25 hydroxy [id number] 04:20:00 Test Item Value Reference Range Interpretation Comments Vitamin D, 56 ng/mL 30-100 Vitamin D Statu s 25-hydroxy (test 25-OH Vitam in D: code = 1988-) Deficiency: <20 ng/mLInsufficie ncy : 20 - 29 ng/mLOptimal: > or = 30 ng/mL For 25-OH Vitamin D testing on patients on D2-supplementat ion and patients fo r whom quantitati on of D2 and D3 fractions is required, the QuestAssureD(TM )25 -OH VIT D, (D2,D3), LC/MS/ MS is recommended: order code 9288 8 (patients >2yrs ). See Note 1 Note 1 For additional information, please refer to http://educatio n.Q uestDiagnostics .co m/faq/CZI809 (T his link is being provided for informational/e carine ational purpose s only.) RAC (test code = Performing RAC) Organization Information: Site ID: CALEB Name: [facility] Address: [address] [place] [phone] Director: [facility] HealthTotal iron binding [id number] 04:20:00 Test Item Value Reference Range Interpretation Comments Iron level (test 29 See_Comment L [Automated code = 2498-4) message] The system which generated this result transmitted reference range : 50 - 180 mcg/dL . The reference range was not used to interpr et this result as normal/abnormal . Iron binding 337 See_Comment [Automated capacity (test code message] The = 2500-7) system which generated this result transmitted reference range : 250 - 425 mcg/d L (calc). The reference range was not used to interpret this result as normal/abnormal . Iron saturation 9 See_Comment L [Automated (test code = 2502-3) message ] The system which generated this result transmitted reference range : 20 - 48 % (calc ). The reference range was not used to interpr et this result as normal/abnormal . RAC (test code = Performing RAC) Organization Information: Site ID: CALEB Name: [facility] Lab Address: [address] [place] [phone] Director: Ilia Patel Lab Interpretation Abnormal (test code = 95196-3) [facility] CenterPECIMEN INTEGRITY [id number] 04:20:00Specimen integrity compromisedRIVERSIDE HOSPITAL CORPORATION IIPerforming Organization Information: Site ID: IG Name: [facility] Lab Address: [address] [place] [address] Director: Dr. Heri SalamancaHouston [facility] Fecal [id number] 03:38:00 Test Item Value Reference Interpretation Comments Range Fecal calprotectin 386 mcg/g H Referenc e Range: <50 (test code = Normal 50-120 57175-1) Borderline >120 Elevated Calpro tectin in Crohn's dise ase and ulcerative coli tis canbe five to s everal thousand times above the referencepo pulation (50 mcg/g or le ss). Levels are usua lly 50 mcg/gor less in healthy patients and wi th irritable bowelsyndrome. Repeat testing in 4-6 weeks is suggested forbo rderline values. RAC (test code = Performing RAC) Organization Information: Site ID: EZ Name: DAQRI/[facility], Address: [address] [place] [address] Director: Danielle Jones MD,PhD,DERECK Lab Interpretation Abnormal (test code = 37617-1) [facility] HospitalT4, [id number] 17:58:00 Test Item Value Reference Range Interpretation Comments T4, free (test code 1.2 ng/dL 0.8-1.8 = 3024-7) RAC (test code = Performing Organization RAC) Information: Site ID: KATHYA Name: [facility] Lab Address: [address] [place] [phone] Director: Heri Salamanca [facility] HospitalThyroid stimulating [id number] 17:58:00 Test Item Value Reference Range Interpretation Comments TSH (test 1.11 See_Comment [Automated mes luis] code = The system [employer] h 3016-3) generated this result transmit ita reference range : 0.40 - 4.50 mIU /L. The reference r rox was not used to interpret this result as normal/abnormal . RAC (test Performing code = RAC) Organization Information: Site ID: RGA Name: [facility] ManagementUn[facility] Lab Address: [address] [place] [address] Director: [facility]T32023-03-08 17:58:00 Test Item Value Reference Range Interpretation Comments T3 (test code = 84 ng/dL 76-181 3053-6) RAC (test code = Performing Organization RAC) Information: Site ID: RGA Name: [facility] Lab Address: [address] [place] [address] Director: [facility] [id number] 19:38:18 Test Item Value Reference Range Interpretation Comments Case number (test code = [id number]) Surgical pathology See link below for report (test code = PDF Lab Report 2255) Result status (test code This is Final Report = [id number]) for [id number] [facility]
[2023-05-26 06:22] LABS: Absolute Lymphocytes (CBC) 0.6 K/uL (0.7-4.9); Hematocrit 31.1 % (39.6-49.0); Lymphocytes % 9.5 % (15.3-44.8); MCV 87.8 fL (80-100); MPV 7.4 fL (7.6-11.3); Platelets 223 thou/uL (152-406); RBC Red Blood Cell Count 3.54 M/uL (4.33-5.43)
[2023-05-26 06:25] LABS: Protime INR 1.03
[2023-05-26] MEDS ORDERED: METOPROLOL TAR 50 MG TAB ONE (06:30)
[2023-05-26] MEDS ORDERED: METOPROLOL TARTRATE 5 MG/5 ML INJ IV ONE (06:31)
[2023-05-26] MEDS ORDERED: MAGNESIUM SULFATE 1 gm IVPB 1 GM/100 ML BAG IV ONE (06:31)
[2023-05-26 06:47] LABS: Albumin 3.5 g/dL (3.4-5.0); Bilirubin Direct 0.2 mg/dL (0-0.2); Bilirubin Indirect, Calculated 0.2 mg/dL (0.2-0.8); Bilirubin Total 0.4 mg/dL (0.2-1.0); Magnesium 2.4 mg/dL (1.6-2.4); Potassium 3.9 mEq/L (3.5-5.1); Protein, Total 6.6 g/dL (6.4-8.2); Thyroid Stimulating Hormone 2.43 uIU/mL (0.358-3.740)
--- NOTE | 2023-05-26 06:49 | EDPHYS ---
Physician Documentation [facility] Name: Madi Tiwari III Age: 72 yrs Sex: Male : 1950 Arrival Date: 05/26/2023 Time: 05:50 Bed 19 Private MD: ED Physician Christofer Suero HPI: 05/26 06:42 This 72 yrs old Male presents to ER via EMS with complaints of chest pain, a corbin fib rvr, weak. 06:42 The patient or guardian reports chest pain that is located primarily in the substernal corbin area. Onset: 1 day(s) ago. The patient presents with a history of irregular heart beat, heart racing. Context: The symptoms occur at rest. Onset: The symptoms/episode began/occurred 1 day(s) ago. Modifying factors: The symptoms are aggravated by nothing. The symptoms are alleviated by nothing. The pain does not radiate. Associated signs and symptoms: The patient has no apparent associated signs or symptoms. The chest pain is described as aching. Historical: - Allergies: 05:54 No Known Allergies; as6 - PMHx: 05:54 Anemia; Anxiety; Atrial Fib; Crohn's; Hypertension; Hypothyroidism; neuropathy; as6 osteoarthristis; - PSHx: 05:54 colon (osteoarthristis); chest (osteoarthristis); as6 - Immunization history:: Adult Immunizations up to date. - Social history:: Smoking status: Patient denies any tobacco usage or history of. - Family history:: not pertinent. ROS: 06:42 Constitutional: Negative for fever, chills, and weight loss, Eyes: Negative for injury, corbin pain, redness, and discharge, ENT: Negative for injury, pain, and discharge, Neck: Negative for injury, pain, and swelling, Respiratory: Negative for shortness of breath, cough, wheezing, and pleuritic chest pain, Abdomen/GI: Negative for abdominal pain, nausea, vomiting, diarrhea, and constipation, Back: Negative for injury and pain, : Negative for injury, bleeding, discharge, and swelling, MS/Extremity: Negative for injury and deformity, Skin: Negative for injury, rash, and discoloration, Neuro: Negative for headache, weakness, numbness, tingling, and seizure, Psych: Negative for depression, anxiety, suicide ideation, homicidal ideation, and hallucinations, Allergy/Immunology: Negative for hives, rash, and allergies, Endocrine: Negative for neck swelling, polydipsia, polyuria, polyphagia, and marked weight changes, Hematologic/Lymphatic: Negative for swollen nodes, abnormal bleeding, and unusual bruising, 06:42 Cardiovascular: Positive for chest pain, palpitations, Exam: 06:42 Constitutional: This is a well developed, well nourished patient who is awake, alert, corbin and in no acute distress. Head/Face: Normocephalic, atraumatic. Eyes: Pupils equal round and reactive to light, extra-ocular motions intact. Lids and lashes normal. Conjunctiva and sclera are non-icteric and not injected. Cornea within normal limits. Periorbital areas with no swelling, redness, or edema. ENT: Nares patent. No nasal discharge, no septal abnormalities noted. Tympanic membranes are normal and external auditory canals are clear. Oropharynx with no redness, swelling, or masses, exudates, or evidence of obstruction, uvula midline. Mucous membranes moist. Neck: Trachea midline, no thyromegaly or masses palpated, and no cervical lymphadenopathy. Supple, full range of motion without nuchal rigidity, or vertebral point tenderness. No Meningismus. Chest/axilla: Normal chest wall appearance and motion. Nontender with no deformity. No lesions are appreciated. Respiratory: Lungs have equal breath sounds bilaterally, clear to auscultation and percussion. No rales, rhonchi or wheezes noted. No increased work of breathing, no retractions or nasal flaring. Abdomen/GI: Soft, non-tender, with normal bowel sounds. No distension or tympany. No guarding or rebound. No evidence of tenderness throughout. Back: No spinal tenderness. No costovertebral tenderness. Full range of motion. Male : Normal genitalia with no discharge or lesions. Skin: Warm, dry with normal turgor. Normal color with no rashes, no lesions, and no evidence of cellulitis. MS/ Extremity: Pulses equal, no cyanosis. Neurovascular intact. Full, normal range of motion. Neuro: Awake and alert, GCS 15, oriented to person, place, time, and situation. Cranial nerves II-XII grossly intact. Motor strength 5/5 in all extremities. Sensory grossly intact. Cerebellar exam normal. Normal gait. Psych: Awake, alert, with orientation to person, place and time. Behavior, mood, and affect are within normal limits. 06:42 Cardiovascular: Rate: tachycardic, actual rate is 115 bpm, Rhythm: irregularly irregular, Pulses: Pulses are 4+ in bilateral radial, brachial, femoral, popliteal, posterior tibial and and dorsalis pedis arteries.. Heart sounds: normal, Edema: is not appreciated, JVD: is not appreciated, 06:42 ECG was reviewed by the Attending Physician. Vital Signs: 05:51 BP 152 / 80; Pulse 115; Resp 22 S; Temp 98.1(TE); Pulse Ox 98% on R/A; Weight 83.91 kg as6 (R); Height 6 ft. 0 in. (R); Pain 0/10; 06:55 BP 116 / 65; Pulse 84; Resp 17; Pulse Ox 98% ; Pain 0/10; jj7 05:51 Body Mass Index 25.09 (83.91 kg, 182.88 cm) as6 05:51 Pain Scale: Adult as6 06:55 Pain Scale: Adult jj7 MDM: 05:58 Patient medically screened. corbin 06:45 Differential diagnosis: abnormal EKG, acute myocardial infarction, acute pericarditis, corbin anxiety, chest wall pain, arrythmia, dehydration, pancreatitis, pericarditis, pneumonia, pulmonary embolus, stable angina, thoracic aortic disection, unstable angina. HEART Score: History: Moderately Suspicious (1), ECG: Non specific repolarization disturbance / LBTB / PM (1), Age: > or = 65 years (2), Risk Factors: > or = 3 Risk factors for atherosclerotic disease (2), [Hypercholesterolemia] [Hypertension] [+ Family HX] Troponin: < or = 1 x Normal Limit (0). The patient was given aspirin in the Emergency Department. KOKO Risk Score: 1 - patient's age is greater or equal to 65 years, 1 - Three or more CAD risk factors, 1- Known CAD, TOTAL SCORE = 3. Data reviewed: vital signs, nurses notes, EMS record, lab test result(s), EKG, radiologic studies, plain films. Consideration of Admission/Observation Patient was admitted/placed on observation. Escalation of care including admission/observation considered. I considered the following discharge prescriptions or medication management in the emergency department Medications were administered in the Emergency Department. See MAR. Independent interpretation of the following test(s) in the Emergency Department EKG: See my EKG interpretation above. Test considered but Not performed: Ultrasound no 2 decho. Care significantly affected by the following chronic conditions: Hypertension, anemia, a fib, hypothyroid. 05/26 05:57 Order name: Basic Metabolic Panel; Complete Time: 06:59 05/26 05:57 Order name: CBC with Diff; Complete Time: 06:59 05/26 05:57 Order name: LFT's; Complete Time: 06:59 05/26 05:57 Order name: Magnesium; Complete Time: 06:59 05/26 05:57 Order name: NT PRO-BNP; Complete Time: 06:59 05/26 05:57 Order name: PT-INR; Complete Time: 06:59 05/26 05:57 Order name: Troponin HS; Complete Time: 06:59 05/26 06:22 Order name: Thyroid Stimulating Hormone; Complete Time: 06:59 EDMS 05/26 05:57 Order name: XRAY Chest (1 view) 05/26 05:57 Order name: EKG; Complete Time: 05:58 05/26 05:57 Order name: Cardiac monitoring; Complete Time: 06:34 05/26 05:57 Order name: EKG - Nurse/Tech; Complete Time: 06:46 05/26 05:57 Order name: IV Saline Lock; Complete Time: 06:19 05/26 05:57 Order name: Labs collected and sent; Complete Time: 06:19 05/26 05:57 Order name: O2 Per Protocol; Complete Time: 06:19 05/26 05:57 Order name: O2 Sat Monitoring; Complete Time: 06:19 EC:42 Rate is 118 beats/min. Rhythm is irregularly irregular. QRS [place] is Normal. WI interval corbin is normal. QRS interval is normal. QT interval is normal. No Q waves. T waves are Normal. No ST changes noted. Clinical impression: Atrial Fibrillation and No evidence of ischemia. Interpreted by me. Reviewed by me. Administered Medications: 06:31 Drug: Metoprolol PO 50 mg PO once Route: PO; jj7 06:31 Drug: Magnesium Sulfate IVPB 1 grams IVPB once over 1 hrs Route: IVPB; Infused Over: 1 jj7 hrs; Site: left antecubital; 07:54 Not Given (Patient Refused): digoxin0.5 mg IVP once ld1 07:54 Not Given (Patient Refused): mg IVP once ld1 07:54 Not Given (Patient Refused): enoxaparin1 mg/kg Sub-Q once ld1 07:54 Not Given (Patient Refused): ns 0.9% 500 ml IV at bolus once ld1 07:54 Not Given (Patient Refused): ns 0.9% 1000 ml IV at 125 ml/hr continuous ld1 07:54 Not Given (Patient Refused): aspirinchewable tablet 81 mg PO once ld1 07:55 Not Given (previous nurses): metoprolol5 mg IVP once; Hold for SBP <100 or HR <60. ld1 07:55 Not Given (previous nursee): metoprolol5 mg IVP once; Hold for SBP <100 or HR <60. ld1 Disposition Summary: 05/26/23 06:49 Hospitalization Ordered Notes: Hospitalization Status: Observation corbin Provider: Micky Sabillon cha Location: Telemetry/MedSurg (observation) corbin Condition: Fair corbin Problem: new corbin Symptoms: have improved corbin Bed/Room Type: Standard corbin Room Assignment: corbin Diagnosis - Persistent atrial fibrillation corbin - Weakness corbin - Palpitations corbin - Anemia, unspecified corbin Forms: - Medication Reconciliation Form corbin - SBAR form corbin - Leadership Thank You Letter corbin Signatures: Dispatcher [employer] EDMS Christofer Suero MD MD cha Attema, Lee, MEDICAL SCIENTIFIC OFFICER-C MEDICAL SCIENTIFIC OFFICER-Cla1 Freddy Ashford RN RN as6 Orin Grider RN RN jj7 Shilpa Anaya RN ld1 Corrections: (The following items were deleted from the chart) 06:22 06:00 THYROID STIMULAT HORMONE+C.LAB.BRZ ordered. EDOH EDMS
--- NOTE | 2023-05-26 06:49 | ER ---
Nurse's Notes [facility] Name: Madi Tiwari III Age: 72 yrs Sex: Male : 1950 Arrival Date: 05/26/2023 Time: 05:50 Bed 19 Private MD: Diagnosis: Persistent atrial fibrillation;Weakness;Palpitations;Anemia, unspecified Presentation: 05/26 05:52 Chief complaint: EMS states: pt woke up this morning feeling anxious, palpations and as6 short of breath. Coronavirus screen: At this time, the client does not indicate any symptoms associated with coronavirus-19. Ebola Screen: No symptoms or risks identified at this time. Initial Sepsis Screen: Does the patient meet any 2 criteria? No. Patient's initial sepsis screen is negative. Does the patient have a suspected source of infection? No. Patient's initial sepsis screen is negative. Risk Assessment: Do you want to hurt yourself or someone else? Patient reports no desire to harm self or others. Onset of symptoms was May 26, 2023. 05:52 Acuity: ONDINA 2 as6 05:52 Method Of Arrival: EMS: [facility] as6 05:58 Care prior to arrival: Medication(s) given: Ativan 2mg IV IV initiated. 18 GA, in the as6 left antecubital area. Historical: - Allergies: 05:54 No Known Allergies; as6 - PMHx: 05:54 Anemia; Anxiety; Atrial Fib; Crohn's; Hypertension; Hypothyroidism; neuropathy; as6 osteoarthristis; - PSHx: 05:54 colon (osteoarthristis); chest (osteoarthristis); as6 - Immunization history:: Adult Immunizations up to date. - Social history:: Smoking status: Patient denies any tobacco usage or history of. - Family history:: not pertinent. Screenin:00 [facility] ED Fall Risk Assessment (Adult) History of falling in the last 3 months, jj7 including since admission No falls in past 3 months (0 pts) Confusion or Disorientation No (0 pts) Intoxicated or Sedated No (0 pts) Impaired Gait No (0 pts) Mobility Assist Device Used No (0 pt) Altered Elimination No (0 pt) Score/Fall Risk Level 0 - 2 = Low Risk Oriented to surroundings, Maintained a safe environment, Educated pt \T\ family on fall prevention, incl call for assistance when getting out of bed. Abuse screen: Denies threats or abuse. Tuberculosis screening: No symptoms or risk factors identified. Assessment: 06:00 General: Appears in no apparent distress. comfortable, Behavior is calm, cooperative, jj7 appropriate for age. Pain: Denies pain. Neuro: No deficits noted. Reports HAVING HX OF ANXIETY AND HE WAS HAVING SOME ANXIETY THIS MORNING. Cardiovascular: Reports palpitations, Rhythm is atrial fibrillation With PVC's. 07:05 Reassessment: REPORT GIVEN TO GIGI PLATA. jj7 Vital Signs: 05:51 BP 152 / 80; Pulse 115; Resp 22 S; Temp 98.1(TE); Pulse Ox 98% on R/A; Weight 83.91 kg as6 (R); Height 6 ft. 0 in. (R); Pain 0/10; 06:55 BP 116 / 65; Pulse 84; Resp 17; Pulse Ox 98% ; Pain 0/10; jj7 05:51 Body Mass Index 25.09 (83.91 kg, 182.88 cm) as6 05:51 Pain Scale: Adult as6 06:55 Pain Scale: Adult j7 ED Course: 05:51 Patient arrived in ED. rv1 05:51 Arm band placed on. as6 05:54 Triage completed. as6 05:58 Christofer Suero MD is Attending Physician. [facility] 06:00 Patient has correct armband on for positive identification. Bed in low position. Call jj7 light in reach. Side rails up X2. Adult w/ patient. 06:00 Maintain EMS IV. Dressing intact. Good blood return noted. Site clean \T\ dry. Gauge \T\ jj 7 site: 18G LEFT AC. 06:05 Orin Grider, SHERLYN is Primary Nurse. jj7 06:19 Basic Metabolic Panel Sent. jj7 06:19 LFT's Sent. jj7 06:19 Magnesium Sent. jj7 06:19 CBC with Diff Sent. jj7 06:19 NT PRO-BNP Sent. jj7 06:19 PT-INR Sent. jj7 06:19 Troponin HS Sent. jj7 06:24 XRAY Chest (1 view) In Process Unspecified. EDMS 06:48 Micky Sabillon MD is Hospitalizing Provider. corbin Administered Medications: 06:31 Drug: Metoprolol PO 50 mg PO once Route: PO; jj7 06:31 Drug: Magnesium Sulfate IVPB 1 grams IVPB once over 1 hrs Route: IVPB; Infused Over: 1 jj7 hrs; Site: left antecubital; 07:54 Not Given (Patient Refused): digoxin0.5 mg IVP once ld1 07:54 Not Given (Patient Refused): lcklosesgtbv12 mg IVP once ld1 07:54 Not Given (Patient Refused): enoxaparin1 mg/kg Sub-Q once ld1 07:54 Not Given (Patient Refused): ns 0.9% 500 ml IV at bolus once ld1 07:54 Not Given (Patient Refused): ns 0.9% 1000 ml IV at 125 ml/hr continuous ld1 07:54 Not Given (Patient Refused): aspirinchewable tablet 81 mg PO once ld1 07:55 Not Given (previous nurses): metoprolol5 mg IVP once; Hold for SBP <100 or HR <60. ld1 07:55 Not Given (previous nursee): metoprolol5 mg IVP once; Hold for SBP <100 or HR <60. ld1 Medication: 06:00 VIS not applicable for this client. jj7 Outcome: 06:49 Decision to Hospitalize by Provider. [facility] 08:39 Patient left the ED. 1 Signatures: Dispatcher [employer] EDMS Christofer Suero MD MD cha Sims, Lauren, RN RN ld1 Freddy Ashford, RN RN as6 Orin Grider RN RN jj7 Gisselle Drew rv1 Corrections: (The following items were deleted from the chart) 06:22 06:19 THYROID STIMULAT HORMONE+C.LAB.BRZ drawn and sent. jj7 EDNH
--- NOTE | 2023-05-26 07:46 | RAD REPORT ---
EXAM DESCRIPTION: Tiffany Single View05/26/2023 6:22 am CLINICAL HISTORY: Chest pain COMPARISON: 2019 FINDINGS: The lungs appear clear of acute infiltrate. The heart is normal size IMPRESSION: No acute abnormalities displayed
[2023-05-26] MEDS ORDERED: ASPIRIN EC 81 MG TAB PO ONE (07:51)
[2023-05-26] MEDS ORDERED: PANTOPRAZOLE 40 MG INJ ONE (07:51)
[2023-05-26] MEDS ORDERED: DIGOXIN 0.25 MG/ML AMP ONE (07:51)
[2023-05-26] MEDS ORDERED: ENOXAPARIN 80 MG/0.8 ML SQ ONE (07:52)
[2023-05-26] MEDS ORDERED: NA CHLORIDE 0.9% 0 ML ONE ×2 (07:52)
[2023-05-26 09:04] VITALS: TEMP 98.1; O2SAT 98
[2023-05-26 09:05] VITALS: BP 116/65
--- NOTE | 2023-05-28 14:16 | EKG ---
Test Date: 2023-05-26 Test Time: 07:43:55 Traffic Checker: JYOTHI MEASUREMENT RESULTS: Intervals: Rate: 102 [place]: QRSD: 90 QT: 330 QTc: 430 [place]: P: WA: QRS: -15 T: 41 INTERPRETIVE STATEMENTS: Atrial fibrillation Abnormal ECG Compared to ECG 09/01/2020 15:20:11 Sinus rhythm no longer present Electronically Signed On 05-28-23 14:09:05 HAZMAT TANKER DRIVER by Anthony Schwarz
== END 2023-05-26 08:37 | disposition left against medical advice (07) ==
LOC: ER 05:50
DX: I48.21 Permanent atrial fibrillation (principal); D64.9 Anemia, unspecified; R53.1 Weakness; I10 Essential (primary) hypertension; F41.9 Anxiety disorder, unspecified
CPT/HCPCS: 93005; 85025; 80048; 36415; 83735; 85610; 80076; 84443; 84484; 83880; 71045; 96374; 99284; J3475; C9113; J1160; J7030; J7040

== ENCOUNTER 2023-05-31 08:04 | Emergency (ER) | payer OTHER, BC ==
--- OUTSIDE RECORDS SUMMARY | 2023-05-31 08:09 | XMS REPORT | Continuity of Care Document ---
:1950 Author Organization [facility] t Address [address] [place] [address] [place] [id number] Care Team Providers Name Role Phone BARBARA NAJERA Primary Care Physician Unavailable MAREK OSBORN Attending Clinician Unavailable Marek Osborn MD Attending Clinician Solomon Joshua MD Attending Clinician Isiah Ardon MD Attending Clinician [phone] Yolis Kauffman MA Attending Clinician Unavailable Fany Sanchez MA Attending Clinician Unavailable Jorge GOLDSTEIN, Hannah Herrmann Attending Clinician [phone] Corrie LONGORIA, Chelsea Attending Clinician Lalitha Galvan MD Attending Clinician Claudia Topete PA-C Attending Clinician Xavi Brownlee MD Attending Clinician Dayami Acharya MD Attending Clinician BARBARA WORLEY Attending Clinician Unavailable EDY GOODE Attending Clinician Unavailable Manny Mann MD Attending Clinician MANNY MANN Attending Clinician Unavailable MANNY MANN Attending Clinician Unavailable Doctor Unassigned, [place] Attending Clinician Unavailable TRAMAINE GOODSON Attending Clinician Unavailable ISIAH ARDON Admitting Clinician Unavailable TRAMAINE GOODSON Admitting Clinician Unavailable Payers Payer Name Policy Type Policy Number Effective Date Expiration Date S ource MEDICARE PART A \T\ [id number] 2014 B 00:00:00 BCBS TRADITIONAL [id number] 2014 00:00:00 Problems Condition Condition Condition Status [...] rs active active ity of problems problems [facility] Allergies, Adverse Reactions, Alerts Allergy Allergy Status Severity Reaction(s) Onset Inactive Treating Comm ents Source Name Type Date Date Clinician NO KNOWN Drug Active Univers ALLERGIE Class ity of S [facility] Family History Family Member Diagnosis Comments Start Date Stop Date Source Natural [facility] Social History Social Habit Start Date Stop Date Quantity Comments Source Gender identity [facility] Alcohol intake 2023-01-27 2023-01-27 Current [facility] 00:00:00 00:00:00 non-drinker of Hospital alcohol (finding) History of Social 2023-01-27 2023-01-[address] function 00:00:00 00:00:00 Hospital Tobacco use and 2022-05-06 2022-05-06 Smokeless [facility] exposure 00:00:00 00:00:00 tobacco non-user Hospital Exposure to 2022-03-05 2022-03-15 Not sure [facility]-CoV-2 (event) 00:00:00 11:43:00 [facility] Sex Ass[birth year] [facility] 00:[facility] 00:[facility]:00 [facility] Smoking Status Start Date Stop Date Source Never smoked tobacco [facility] Medications Ordered Filled Start Stop [...] alla-D3-mag1 Yes Q.5D 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 Minerals) 600 mg calcium- 800 unit-50 mg tablet polyethylen 2022-0 Yes 17g QD Take 17 g M ethodi e glycol 7-[address] (MIRALAX) 14:50: daily. Hospit a 17 gram 57 l packet docusate 2022-0 Yes 100mg QD Take 1 Method i sodium -[address] (COLACE) 14:50: (100 mg Hospit a 100 MG 57 total) by l capsule mouth daily. cyanocobala 2022-[address] [facility] min, 7-13 1,[address] vitamin 14:50: under the Hospi ta B-12, 5,000 57 tongue l mcg tablet, daily. sublingual losartan 2022-0 Yes 25mg Q.5D Take 1 Methodi (COZAAR) 25 7-13 tablet (25 st MG tablet 14:50: mg total) Hos amadou 57 by mouth 2 l (two) times a day as needed. inFLIXimab 0 Yes Infuse Metho di (REMICADE) 01-[address] 100 mg 14:50: venous Hospita injection 57 catheter. l Every 8 weeks multivitami 2022-0 Yes 2{tbl} QD Chew 2 Me thodi n 7-[address] tablet,chew 14:50: daily. [facility]osp [facility] able 57 l aspirin 2022-0 Yes 81mg QD Take 1 Methodi (ECOTRIN) 7-13 tablet (81 st 81 MG 14:50: mg total) Hospita enteric 57 by mouth l coated daily. 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 Minerals) 600 mg calcium- 800 unit-50 mg tablet spironolact 2023-0 Yes 25mg QD Take 1 Meth hilario one 6-22 tablet (25 st (ALDACTONE) 00:00: mg total) H ospita 25 MG 00 by mouth l tablet daily. spironolact 2023-0 Yes 25mg QD Take 1 Meth hilario one 6-22 tablet (25 st (ALDACTONE) 00:00: mg total) H ospita 25 MG 00 by mouth l tablet daily. levothyroxi Yes [id number] TAKE 1 Methodi ne 3-24 TABLET(88 st (SYNTHROID) 00:00: MCG) BY Hos amadou 88 mcg 00 MOUTH l tablet EVERY MORNING levothyroxi Yes [id number] TAKE 1 Methodi ne 3-24 TABLET(88 st (SYNTHROID) 00:00: MCG) BY Hos amadou 88 mcg 00 MOUTH l tablet EVERY MORNING linaCLOtide 2023- No 145ug QD Take 1 Me thodi (LINZESS) -14 09- capsule st 145 mcg 00:00: 05:59 (145 mcg Hospi ta capsule 00 :00 total) by l mouth daily before breakfast. linaCLOtide 2023- No 145ug QD Take 1 Me thodi (LINZESS) 09-14- capsule st 145 mcg 00:00: 05:59 (145 mcg Hospi ta capsule 00 :00 total) by l mouth daily before breakfast. methotrexat 2023- No [id number] 5mg Q7D Take 2 Methodi e 2.5 MG 1-20 01-21 tablets (5 st tablet 00:00: 05:59 mg total) Hospi ta 00 :00 by mouth l once a week. methotrexat 2023- No [id number] 5mg Q7D Take 2 Methodi e 2.5 MG 1-20 01-21 tablets (5 st tablet 00:00: 05:59 mg total) Hospi ta 00 :00 by mouth l once a week. Vitamins-Li 2021-07 Yes Take by Uni vers potropics 1-16 mouth. ity of (LIPO-FLAVO 08:12: [place] NOID PLUS) 19 Medical 200-100 mg Branch [...] n-FA-K-lyco 1-16 mouth. ity of pene 08:12: [place] (ONE-A-DAY 19 Medical MEN'S 50+ Branch ADVANTAGE) 400-20-370 mcg Tab losartan 2021-07 Yes 50mg Take 50 mg Uni vers (COZAAR) 1-16 by mouth ity of 100 mg 08:12: daily. [place] tablet 19 Medical Branch aspirin 81 2021-07 Yes 81mg Take 81 mg U nivers mg chewable -16 by mouth ity of tablet 08:12: daily. [place] 19 Medical Branch Cholecalcif 2021-07 Yes Take by Uni vers dillon, -16 mouth. ity of Vitamin D3, 08:12: [place] (VITAMIN 19 Medical D3) 2,000 [place] unit Cap FERROUS 2021-07 Yes Take by Univers FUMARATE -16 mouth. ity of (IRON ORAL) 08:12: [place] [address] Medical Branch NaCl 0.9% 2021-07 Yes Infuse Univer s (NS) SolP -16 once now. ity o f 250 mL with 08:12: [place] inFLIXimab 19 Medical 100 mg SolR Branch Cyanocobala 2021-[address] Unive rs min -16 under the ity of (VITAMIN 08:12: tongue. [facility]-12) 1,000 19 Medical mcg Subl Branch Vitamins-Li 2021-07 Yes Take by Uni vers potropics 1-16 mouth. ity of (LIPO-FLAVO 08:12: [place] NOID PLUS) 19 Medical 200-100 mg Branch Tab clonazePAM 2021-07 Yes 1mg Take 1 mg Un rozina (KLONOPIN) 1-16 by mouth ity o f 1 mg tablet 08:12: daily. [facility] s 19 Medical Branch propafenone 2021-07 Yes 325mg Take 325 U nivers (RYTHMOL 1-16 mg by ity of SR) 325 mg 08:12: mouth 2 [place] 12 [place] 19 (two) Medical capsule times Branch daily. multivit-mi 2021-07 Yes Take by Uni vers n-FA-K-lyco 1-16 mouth. ity of pene 08:12: [place] (ONE-A-DAY 19 Medical MEN'S 50+ Branch ADVANTAGE) 400-20-370 mcg Tab losartan 2021-07 Yes 50mg Take 50 mg Uni vers (COZAAR) 1-16 by mouth ity of 100 mg 08:12: daily. [place] tablet 19 Medical Branch aspirin 81 2021-07 Yes 81mg Take 81 mg U nivers mg chewable 1-16 by mouth ity of tablet 08:12: daily. [place] 19 Medical Branch Cholecalcif 2021-07 Yes Take by Uni vers dillon, 1-16 mouth. ity of Vitamin D3, 08:12: [place] (VITAMIN 19 Medical D3) 2,000 Branch unit Cap FERROUS 2021-07 Yes Take by Univers FUMARATE 1-16 mouth. ity of (IRON ORAL) 08:12: [place] [address] Medical Branch NaCl 0.9% 2021-07 Yes Infuse Univer s (NS) SolP -16 once now. ity o f 250 mL with 08:12: [place] inFLIXimab 19 Medical 100 mg SolR Branch Cyanocobala 2021-[address] Unive rs min -16 under the ity of (VITAMIN 08:12: tongue. [place] B-12) 1,000 19 Medical mcg Subl Branch Vitamins-Li 2021-07 Yes Take by Uni vers potropics 1-16 mouth. ity of (LIPO-FLAVO 08:12: [place] NOID PLUS) 19 Medical 200-100 mg Branch [...] n-FA-K-lyco 1-16 mouth. ity of pene 08:12: [place] (ONE-A-DAY 19 Medical MEN'S 50+ Branch ADVANTAGE) 400-20-370 mcg Tab losartan 2021-07 Yes 50mg Take 50 mg Uni vers (COZAAR) 1-16 by mouth ity of 100 mg 08:12: daily. [place] tablet 19 Medical Branch aspirin 81 2021-07 Yes 81mg Take 81 mg U nivers mg chewable 1-16 by mouth ity of tablet 08:12: daily. [place] 19 Medical Branch Cholecalcif 2021-07 Yes Take by Uni vers dillon, 1-16 mouth. ity of Vitamin D3, 08:12: [place] (VITAMIN 19 Medical D3) 2,000 Branch unit Cap FERROUS 2021-07 Yes Take by Univers FUMARATE 1-16 mouth. ity of (IRON ORAL) 08:12: [place] [address] Medical Branch NaCl 0.9% 2021-07 Yes Infuse Univer s (NS) SolP 1-16 once now. ity o f 250 mL with 08:12: [place] inFLIXimab 19 Medical 100 mg SolR Branch Cyanocobala 2021-[address] Unive rs min -16 under the ity of (VITAMIN 08:12: tongue. [facility]-12) 1,000 19 Medical mcg Subl Branch Vitamins-Li 2021-07 Yes Take by Uni vers potropics 1-16 mouth. ity of (LIPO-FLAVO 08:12: [place] NOID PLUS) 19 Medical 200-100 mg Branch [...] n-FA-K-lyco 1-16 mouth. ity of pene 08:12: [place] (ONE-A-DAY 19 Medical MEN'S 50+ Branch ADVANTAGE) 400-20-370 mcg Tab losartan 2021-07 Yes 50mg Take 50 mg Uni vers (COZAAR) 1-16 by mouth ity of 100 mg 08:12: daily. [place] tablet 19 Medical Branch aspirin 81 2021-07 Yes 81mg Take 81 mg U nivers mg chewable 1-16 by mouth ity of tablet 08:12: daily. [place] [address] Medical Branch Cholecalcif 2021-07 Yes Take by Uni vers dillon, 1-16 mouth. ity of Vitamin D3, 08:12: [place] (VITAMIN 19 Medical D3) 2,000 Branch unit Cap FERROUS 2021-07 Yes Take by Univers FUMARATE 1-16 mouth. ity of (IRON ORAL) 08:12: [place] 19 Medical Branch NaCl 0.9% 2021-07 Yes Infuse Univer s (NS) SolP 1-16 once now. ity o f 250 mL with 08:12: [place] inFLIXimab 19 Medical 100 mg SolR Branch Cyanocobala 2021-[address] Unive rs min -16 under the ity of (VITAMIN 08:12: tongue. [facility]-12) 1,000 19 Medical mcg Subl Branch Vitamins-Li 2021-07 Yes Take by Uni vers potropics 1-16 mouth. ity of (LIPO-FLAVO 08:12: [place] NOID PLUS) 19 Medical 200-100 mg Branch [...] n-FA-K-lyco 1-16 mouth. ity of pene 08:12: [place] (ONE-A-DAY 19 Medical MEN'S 50+ Branch ADVANTAGE) 400-20-370 mcg Tab losartan 2021-07 Yes 50mg Take 50 mg Uni vers (COZAAR) 1-16 by mouth ity of 100 mg 08:12: daily. [place] tablet 19 Medical Branch aspirin 81 2021-07 Yes 81mg Take 81 mg U nivers mg chewable -16 by mouth ity of tablet 08:12: daily. [place] 19 Medical Branch Cholecalcif 2021-07 Yes Take by Uni vers dillon, 1-16 mouth. ity of Vitamin D3, 08:12: [place] (VITAMIN 19 Medical D3) 2,000 Branch unit Cap FERROUS 2021-07 Yes Take by Univers FUMARATE 1-16 mouth. ity of (IRON ORAL) 08:12: [place] 19 Medical Branch NaCl 0.9% 2021-07 Yes Infuse Univer s (NS) SolP 1-16 once now. ity o f 250 mL with 08:12: [place] inFLIXimab 19 Medical 100 mg SolR Branch Cyanocobala 2021-[address] Unive rs min 1-16 under the ity of (VITAMIN 08:12: tongue. [place] B-12) 1,000 19 Medical mcg Subl Branch Vitamins-Li 2021-07 Yes Take by Uni vers potropics 1-16 mouth. ity of (LIPO-FLAVO 08:12: [place] NOID PLUS) 19 Medical 200-100 mg Branch [...] n-FA-K-lyco -16 mouth. ity of pene 08:12: [place] (ONE-A-DAY 19 Medical MEN'S 50+ Branch ADVANTAGE) 400-20-370 mcg Tab losartan 2021-07 Yes 50mg Take 50 mg Uni vers (COZAAR) -16 by mouth ity of 100 mg 08:12: daily. [place] tablet 19 Medical Branch aspirin 81 2021-07 Yes 81mg Take 81 mg U nivers mg chewable -16 by mouth ity of tablet 08:12: daily. [place] 19 Medical Branch Cholecalcif 2021-07 Yes Take by Uni vers dillon, -16 mouth. ity of Vitamin D3, 08:12: [place] (VITAMIN 19 Medical D3) 2,000 Branch unit Cap FERROUS 2021-07 Yes Take by Univers FUMARATE -16 mouth. ity of (IRON ORAL) 08:12: [place] 19 Medical Branch NaCl 0.9% 2021-07 Yes Infuse Univer s (NS) SolP 1-16 once now. ity o f 250 mL with 08:12: [place] inFLIXimab 19 Medical 100 mg SolR Branch Cyanocobala 2021-[address] Unive rs min 1-16 under the ity of (VITAMIN 08:12: tongue. [place] B-) 1,000 19 Medical mcg Subl Branch Vitamins-Li 2021-07 Yes Take by Uni vers potropics 1-16 mouth. ity of (LIPO-FLAVO 08:12: [place] NOID PLUS) 19 Medical 200-100 mg Branch [...] n-FA-K-lyco 1-16 mouth. ity of pene 08:12: [place] (ONE-A-DAY 19 Medical MEN'S 50+ Branch ADVANTAGE) 400-20-370 mcg Tab losartan 2021-07 Yes 50mg Take 50 mg Uni vers (COZAAR) -16 by mouth ity of 100 mg 08:12: daily. [place] tablet 19 Medical Branch aspirin 81 2021-07 Yes 81mg Take 81 mg U nivers mg chewable -16 by mouth ity of tablet 08:12: daily. [place] 19 Medical Branch Cholecalcif 2021-07 Yes Take by Uni vers dillon, 1-16 mouth. ity of Vitamin D3, 08:12: [place] (VITAMIN 19 Medical D3) 2,000 Branch unit Cap FERROUS 2021-07 Yes Take by Univers FUMARATE -16 mouth. ity of (IRON ORAL) 08:12: [place] 19 Medical Branch NaCl 0.9% 2021-07 Yes Infuse Univer s (NS) SolP -16 once now. ity o f 250 mL with 08:12: [place] inFLIXimab 19 Medical 100 mg SolR Branch Cyanocobala 2021-[address] Unive rs min -16 under the ity of (VITAMIN 08:12: tongue. [facility]-12) 1,000 19 Medical mcg Subl Branch hydrocortis 2021-07 Yes [id number] Apply to Univers one 2.5 % 16 area(s) 2 ity o f ointment 00:00: (two) [place] 00 times Medical daily as Branch needed for Rash. As needed for rash or itching. Stop when clear, restart if rash returns. hydrocortis 2021-07 Yes [id number] Apply to Univers one 2.5 % 1-16 area(s) 2 ity o f ointment 00:00: (two) [place] 00 times Medical daily as Branch needed for Rash. As needed for rash or itching. Stop when clear, restart if rash returns. hydrocortis 2021-07 Yes [id number] Apply to Univers one 2.5 % 1-16 area(s) 2 ity o f ointment 00:00: (two) [place] 00 times Medical daily as Branch needed for Rash. As needed for rash or itching. Stop when clear, restart if rash returns. hydrocortis 2021-07 Yes [id number] Apply to Univers one 2.5 % 1-16 area(s) 2 ity o f ointment 00:00: (two) [place] 00 times Medical daily as Branch needed for Rash. As needed for rash or itching. Stop when clear, restart if rash returns. hydrocortis 2021-07 Yes [id number] Apply to Univers one 2.5 % 1-16 area(s) 2 ity o f ointment 00:00: (two) [place] 00 times Medical daily as Branch needed for Rash. As needed for rash or itching. Stop when clear, restart if rash returns. hydrocortis 2021-07 Yes [id number] Apply to Univers one 2.5 % 1-16 area(s) 2 ity o f ointment 00:00: (two) [place] 00 times Medical daily as Branch needed for Rash. As needed for rash or itching. Stop when clear, restart if rash returns. hydrocortis 2021-07 Yes [id number] Apply to Univers one 2.5 % 1-16 area(s) 2 ity o f ointment 00:00: (two) [place] 00 times Medical daily as Branch needed for Rash. As needed for rash or itching. Stop when clear, restart if rash returns. hydrocortis 2021-07- No Metho di one 2.5 % -16 - st ointment 00:00: 00:00 Hospita 00 :00 l hydrocortis 2021-07- No Metho di one 2.5 % 1-16 -13 st ointment 00:00: 00:00 Hospita 00 :00 l clobetasoL 2021-07- No [id number] Q.5D Apply Me thodi (TEMOVATE) 006-[address] 0.05 % 00:00: 00:00 2 (two) Hospita ointment 00 :00 times a l day. clobetasoL 2021-07- No [id number] Q.5D Apply Me thodi (TEMOVATE) 006-[address] 0.05 % 00:00: 00:00 2 (two) Hospita ointment 00 :00 times a l day. levothyroxi 2022- No [id number] TAKE 1 Methodi ne 01-13 03-24 TABLET(88 st (SYNTHROID) 00:00: 00:00 MCG) BY Ho spita 88 mcg 00 :00 MOUTH l tablet EVERY MORNING levothyroxi 2022- No [id number] TAKE 1 Methodi ne - 03-24 TABLET(88 st (SYNTHROID) 00:00: 00:00 MCG) BY Ho spita 88 mcg 00 :00 MOUTH l tablet EVERY MORNING linaCLOtide 2022- No 145ug QD Take 1 Me thodi (LINZESS) 08-04-[address] 145 mcg 00:00: 05:59 (145 mcg Hospi ta capsule 00 :00 total) by l mouth daily before breakfast. linaCLOtide 2022- No 145ug QD Take 1 Me thodi (LINZESS) 08-04-[address] 145 mcg 00:00: 05:59 (145 mcg Hospi ta capsule 00 :00 total) by l mouth daily before breakfast. spironolact 2022- No 25mg QD Take 1 Met hodi one 08-03-25 tablet (25 st (ALDACTONE) 00:00: 05:59 mg total) Hospita 25 MG 00 :00 by mouth l tablet daily. spironolact 2022- No 25mg QD Take 1 Met hodi one 08-03-25 tablet (25 st (ALDACTONE) 00:00: 05:59 mg total) Hospita 25 MG 00 :00 by mouth l tablet daily. mupirocin 2 Yes Apply to Un rozina % ointment 1-04 area(s) 2 ity of 00:00: (two) [place] 00 times Medical daily. Branch mupirocin 2 2021-0 Yes Apply to Un rozina % ointment [...] 1-04 area(s) 2 ity of 00:00: (two) [place] 00 times Medical daily. Branch mupirocin 2 0 Yes Apply to Un rozina % ointment 1-04 area(s) 2 ity of 00:00: (two) [place] 00 times Medical daily. Branch mupirocin 2 2021-0 Yes Apply to Un rozina % ointment 1-04 area(s) 2 ity of 00:00: (two) [place] 00 times Medical daily. Branch mupirocin 2 0 Yes Apply to Un rozina % ointment 1-04 area(s) 2 ity of 00:00: (two) [place] 00 times Medical daily. Branch methotrexat 2020-07- No [id number] Take 2 Methodi e 2.5 MG 2-16 11-[address] tablet 00:00: 05:59 mouth once Hosp [facility] 00 :00 a week. l methotrexat 2020-07- No [id number] Take 2 Methodi e 2.5 MG 2-16 11-[address] tablet 00:00: 05:59 mouth once [facility]osp [facility] 00 :00 a week. l Cyanocobala Yes Place [facility] rs min 7-08 under the ity of (VITAMIN 14:34: tongue. [place] B-12) 1,000 29 Medical mcg Subl Branch clonazePAM Yes 1mg Take 1 mg Un rozina (KLONOPIN) 08 by mouth ity o f 1 mg tablet 14:34: daily. [place] 29 Medical Branch multivit-mi Yes Take by Uni vers n-FA-K-lyco 7-08 mouth. ity of pene 14:34: [place] (ONE-A-DAY 29 Medical MEN'S 50+ Branch ADVANTAGE) 400-20-370 mcg Tab losartan Yes 50mg Take 50 mg Uni vers (COZAAR) 7 by mouth ity of 100 mg 14:34: daily. [place] tablet 29 Medical Branch aspirin 81 Yes 81mg Take 81 mg U nivers mg chewable 08 by mouth ity of tablet 14:34: daily. [place] [address] Medical Branch Cholecalcif Yes Take by Uni vers dillon, 7-08 mouth. ity of Vitamin D3, 14:34: [place] (VITAMIN [address] [place] [address] D3) 2,000 Branch unit Cap FERROUS Yes Take by Univers FUMARATE 7-08 mouth. ity of (IRON ORAL) 14:34: [place] [address] Medical Branch ELIQUIS 5 Yes Univers mg tablet 6-14 ity of 00:00: [place] [address] Medical Branch ELIQUIS 5 Yes Univers mg tablet 6-14 ity of 00:00: [place] [address] Medical Branch ELIQUIS 5 Yes Univers mg tablet 6-14 ity of 00:00: [place] [address] Medical Branch ELIQUIS 5 Yes Univers mg tablet 6-14 ity of 00:00: [place] [facility] Branch ELIQUIS 5 Yes Univers mg tablet 6-14 ity of 00:00: [place] [facility] ELIQUIS 5 Yes Univers mg tablet 6-14 ity of 00:00: [place] [address] Medical Branch ELIQUIS 5 Yes Univers mg tablet 6-14 ity of 00:00: [place] [facility] Branch ELIQUIS 5 Yes Univers mg tablet 6-14 ity of 00:00: [place] [address] Medical Branch KCL 20 mEq Yes TAKE 2 Unive rs tablet 1-31 TABLETS(40 ity of 00:00: MEQ) BY [place] 00 MOUTH Medical DIRECTED Branch KCL 20 mEq Yes TAKE 2 Unive rs tablet 1-31 TABLETS(40 ity of 00:00: MEQ) BY [place] 00 MOUTH Medical DIRECTED Branch KCL 20 mEq Yes TAKE 2 Unive rs tablet 1-31 TABLETS(40 ity of 00:00: MEQ) BY [place] 00 MOUTH Medical DIRECTED Branch KCL 20 mEq Yes TAKE 2 Unive rs tablet 1-31 TABLETS(40 ity of 00:00: MEQ) BY [place] 00 MOUTH Medical DIRECTED Branch KCL 20 mEq Yes TAKE 2 Unive rs tablet 1-31 TABLETS(40 ity of 00:00: MEQ) BY [place] 00 MOUTH Medical DIRECTED Branch KCL 20 mEq Yes TAKE 2 Unive rs tablet 1-31 TABLETS(40 ity of 00:00: MEQ) BY [place] 00 MOUTH Medical DIRECTED Branch KCL 20 mEq Yes TAKE 2 Unive rs tablet 1-31 TABLETS(40 ity of 00:00: MEQ) BY [place] 00 MOUTH Medical DIRECTED Branch KCL 20 mEq Yes TAKE 2 Unive rs tablet 1-31 TABLETS(40 ity of 00:00: MEQ) BY [place] 00 MOUTH Medical DIRECTED Branch propafenone Yes [...] times Medical 0.1 % cream daily. Branch [facility] 10 Yes TK 15 TO Un rozina gram/15 mL 8-18 30 ML PO ity o f solution 00:00: ONE OR BID [place] 00 PRN. Medical Branch PENTASA 500 Yes TK 1 Univer s mg CR 8-18 CAPSULE BY ity of capsule 00:00: MOUTH TID [place] 00 Medical Branch [facility] 10 Yes TK 15 TO Un rozina gram/15 mL 8-18 30 ML PO ity o f solution 00:00: ONE OR BID [place] 00 PRN. Medical Branch PENTASA 500 Yes TK 1 Univer s mg CR 8-18 CAPSULE BY ity of capsule 00:00: MOUTH TID [place] 00 Medical Branch [facility] 10 Yes TK 15 TO Un rozina gram/15 mL 8-18 30 ML PO ity o f solution 00:00: ONE OR BID [place] 00 PRN. Medical Branch PENTASA 500 Yes TK 1 Univer s mg CR 8-18 CAPSULE BY ity of capsule 00:00: MOUTH TID [place] [facility] 10 Yes TK 15 TO Un rozina gram/15 mL 8-18 30 ML PO ity o f solution 00:00: ONE OR BID [place] 00 PRN. Medical Branch P[place]ASA 500 Yes TK 1 Univer s mg CR 8-18 CAPSULE BY ity of capsule 00:00: MOUTH TID Medical Branch [facility] 10 Yes TK 15 TO Un rozina gram/15 mL 8-18 30 ML PO ity o f solution 00:00: ONE OR BID [place] 00 PRN. Medical Branch PENTASA 500 Yes TK 1 Univer s mg CR 8-18 CAPSULE BY ity of capsule 00:00: MOUTH TID Medical Branch [facility] 10 Yes TK 15 TO Un rozina gram/15 mL 8-18 30 ML PO ity o f solution 00:00: ONE OR BID [place] 00 PRN. Medical Branch PENTASA 500 Yes TK 1 Univer s mg CR 8-18 CAPSULE BY ity of capsule 00:00: MOUTH TID Medical Branch [facility] 10 Yes TK 15 TO Un rozina gram/15 mL 8-18 30 ML PO ity o f solution 00:00: ONE OR BID [place] 00 PRN. Medical Branch P[place]ASA 500 Yes TK 1 Univer s mg CR 8-18 CAPSULE BY ity of capsule 00:00: MOUTH TID Medical Branch [facility] 10 Yes TK 15 TO Un rozina gram/15 mL 8-18 30 ML PO ity o f solution 00:00: ONE OR BID [place] 00 PRN. Medical Branch P[place]ASA 500 Yes TK 1 Univer s mg CR 8-18 CAPSULE BY ity of capsule 00:00: MOUTH TID [place] [facility] Branch furosemide Yes TK 2 TS [...] THEN 1 T D Medical Branch UNITHROID Yes Univers 88 mcg 6-18 ity of tablet 00:00: [place] 00 Medical Branch UNITHROID 0 Yes Univers 88 mcg 6-18 ity of tablet 00:00: [place] 00 Medical Branch UNITHROID 0 Yes Univers 88 mcg 6-18 ity of tablet 00:00: [place] 00 Medical Branch UNITHROID 0 Yes Univers 88 mcg 6-18 ity of tablet 00:00: [place] 00 Medical Branch UNITHROID 0 Yes Univers 88 mcg 6-18 ity of tablet 00:00: [place] 00 Medical Branch UNITHROID 0 Yes Univers 88 mcg 6-18 ity of tablet 00:00: [place] Medical Branch UNITHROID 0 Yes Univers 88 mcg 6-18 ity of tablet 00:00: [place] 00 Medical Branch UNITHROID 0 Yes Univers 88 mcg 6-18 ity of tablet 00:00: [place] 00 Medical Branch Vitamins-Li Yes Take by Uni vers potropics 6-10 [...] 00:00:00 [place] Med ical Branch SARS-COV-2 COVID-19 2020-08-23 Completed Unive rsity of MODERNA 12+ YRS 00:00:00 [place] Med ical VACCINE Branch SARS-COV-2 COVID-19 2020-08-23 Completed Unive rsity of [facility] 12+ YRS 00:00:00 [facility] ical VACCINE Branch SARS-COV-2 COVID-19 2020-08-23 Completed Unive rsity of [facility] 12+ YRS 00:00:00 [facility] VACCINE Branch Hep A / Hep B [facility] FLU[facility]ONE QUAD Unknown [facility] FLUAD PF Unknown [facility]neumococcal Unknown Completed [facility] Pneumococcal Unknown Com[facility] T[facility] Com[facility] Zoster Vaccine Unknown Com[facility] Zoster Vaccine Unknown Completed [facility] COVID-19 Unknown Completed [facility] COVID-19 Unknown Completed [facility] COVID-19 Unknown Completed [facility] FLUZONE HIGH-DOSE PF Unknown Completed [facility] Pneumococcal Unknown Completed [facility] FLUZONE HIGH-DOSE PF Unknown Completed [facility] FLUZONE HIGH-DOSE PF Unknown Completed [facility] COVID-19 Unknown Com[facility] FLUZONE HIGH-DOSE PF Unknown Completed [facility] COVID-19 Unknown Completed [facility] BOOSTER VACCINATION Hep A / Hep B [facility] A [facility] FL[facility]AD [facility] FLUAD PF [facility] Pneumococcal Unknown Completed [facility] Pneumococcal Unknown [facility] Com[facility] Tdap [facility] Zoster Vaccine Unknown Com[facility] Vaccine Unknown Com[facility] COVID[facility]19 Unknown Com[facility] COVID[facility]19 Unknown Completed [facility] COVID-19 Unknown Completed [facility] FLUZONE HIGH-DOSE PF Unknown Completed [facility] Pneumococcal Unknown Completed [facility] FLUZONE HIGH-DOSE PF Unknown Completed [facility] FLUZONE HIGH-DOSE PF Unknown Completed [facility] COVID-19 Unknown Com[facility] FLUZONE HIGH-DOSE PF Unknown [facility] COVID-19 Unknown Completed [facility] BOOSTER VACCINATION Vital Signs Vital Name Observation Time Observation Value Comments Source Body height 2022-06-02 15:06:00 177.8 cm [facility] Systolic blood 2023-05-16 17:30:00 115 mm[Hg] [facility] pressure Diastolic blood 2023-05-16 17:30:00 81 mm[Hg] [facility] pressure Heart rate 2023-05-16 17:30:00 81 /min [facility] Body weight 2023-05-16 15:16:00 87.091 kg [facility] BMI 2023-05-16 15:16:00 26.04 kg/m2 [facility] Body temperature 2023-01-27 19:49:[address] [facility] Body height 2023-01-27 19:49:00 182.9 cm [facility] Oxygen saturation in 2023-01-27 19:49:00 100 /min [facility] Arterial blood by Pulse oximetry Respiratory rate 2022-08-10 20:10:00 15 /min [facility] Procedures Procedure Date / Time Performing Clinician Source Performed CBC WITH PLATELET AND 2023-05-16 15:30[facility] Luis Carlos COMPREHENSIVE METABOLIC 2023-05-16 15:30[facility]00 [facility] Carlos SEDIMENTATION RATE 2023-05-16 15:30:00 [facility] Luis Carlos C-REACTIVE PROTEIN 2023-05-16 15:30[facility] FERRITIN LEVEL 2023-05-16 [facility] TOTAL IRON BINDING 2023-05-16 15:30[facility]00 [facility] Carlos VITAMIN D 25 HYDROXY 2023-05-16 15:30:00 [facility] LEV[facility] Luis Carlos VITAMIN B12 LEVEL 2023-05-16 15:30:00 [facility] Luis Carlos FOLATE LEVEL 2023-05-16 15:30:00 Kathleen [facility] Luis Carlos QUANTIFERON-TB GOLD 2023-05-16 15:30:00 [facility] PLUS, 1 TUBE Luis Carlos SPECIMEN INTEGRITY 2023-05-16 15:30:00 [facility] COMPROMISED Luis Carlos CBC WITH PLATELET AND 2023-01-19 15:40:00 [facility] DIFFERENTIAL Luis Carlos COMPREHENSIVE METABOLIC 2023-01-19 15:40:00 [facility] PANEL Luis Carlos SEDIMENTATION RATE 2023-01-19 15:40:00 [facility] Luis Carlos C-REACTIVE PROTEIN 2023-01-19 15:40:00 [facility] Luis Carlos VITAMIN D 25 HYDROXY 2023-01-19 15:40:00 [facility] LEVEL Luis Carlos VITAMIN B12 LEVEL 2023-01-19 15:40:00 [facility] Luis Carlos FECAL CALPROTECTIN 2022-12-10 15:23:00 [facility] Luis Carlos COMPREHENSIVE METABOLIC 2022-09-29 15:30:00 [facility] PANEL Luis Carlos FERRITIN LEVEL 2022-09-29 15:30:00 [facility] TOTAL IRON BINDING 2022-09-29 15:30:00 [facility] CAPACITY Luis Carlos VITAMIN D 25 HYDROXY 2022-09-29 15:30:00 [facility] LEVEL Luis Carlos VITAMIN B12 LEVEL 2022-09-29 15:30:00 [facility] Luis Carlos CBC WITH PLATELET AND 2022-09-21 22:40:00 [facility] DIFFERENTIAL Luis Carlos SEDIMENTATION RATE 2022-09-21 22:40:00 [facility] Luis Carlos C-REACTIVE PROTEIN 2022-09-21 22:40:00 [facility] Luis Carlos THYROID STIMULATING 2022-09-21 22:40:[address] [facility] HORMONE Luis Carlos T4, FREE 2022-09-21 22:40:00 [facility] T3 2022-09-21 22:40:00 [facility] Carlos SURGICAL PATHOLOGY 2022-08-10 20:17:00 Kathleen [facility] Luis Carlos COLONOSCOPY 2022-08-10 18:43:00 [facility] Carlos CBC WITH PLATELET AND 2022-08-04 16:40:00 [facility] Luis Carlos COMPREHENSIVE METABOLIC 2022-08-04 16:40:00 Kathleen [facility] PANEL Luis Carlos SEDIMENTATION RATE 2022-08-04 16:40:00 [facility] Luis Carlos C-REACTIVE PROTEIN 2022-08-04 16:40:00 [facility] Luis Carlos FERRITIN LEVEL 2022-08-04 16:40:00 Kathleen [facility] Luis Carlos TOTAL IRON BINDING 2022-08-04 16:40:00 [facility] CAPACITY Luis Carlos VITAMIN D 25 HYDROXY 2022-08-04 16:40:00 Kathleen [facility] LEVEL Luis Carlos VITAMIN B12 LEVEL 2022-08-04 16:40:00 [facility] Luis Carlos FOLATE LEVEL 2022-08-04 16:40:00 [facility] Luis Carlos FECAL CALPROTECTIN 2022-07-20 22:26:00 [facility] Luis Carlos CBC WITH PLATELET AND 2022-07-08 18:50:00 [facility] DIFFERENTIAL Luis Carlos TOTAL IRON BINDING 2022-07-08 18:50:00 [facility] CAPACITY Luis Carlos FERRITIN LEVEL 2022-07-08 18:50:00 Kathleen [facility] Luis Carlos C-REACTIVE PROTEIN 2022-07-08 18:50:00 [facility] Luis Carlos SEDIMENTATION RATE 2022-07-08 18:50:00 [facility] Planned Activity Planned Date Details Comments Source Future Scheduled 2023-05-27 [facility] 10:11:10 malignant neoplasm of colon (procedure) [code = 595797296] Future Scheduled 2023-05-27 [facility] 10:11:10 malignant neoplasm of colon (procedure) [code = 743466729] Future Scheduled 2023-05-27 [facility] 10:11:10 malignant neoplasm of colon (procedure) [code = 243488214] Future Scheduled 2023-05-27 COVID-19 VACCINE (6 [facility] 10:11:10 - season) [code = COVID-19 VACCINE ( - season)] Future Scheduled 2023-05-27 INFLUENZA VACCINE [facility] 10:11:10 (#1) [code = INFLUENZA VACCINE (#1)] Future Scheduled 2023-05-27 [facility] 10:11:10 malignant neoplasm of colon (procedure) [code = 511791691] Future Scheduled 2023-05-27 [facility] 10:11:10 malignant neoplasm of colon (procedure) [code = 101855824] Future Scheduled 2023-05-25 [facility] 08:17:07 malignant neoplasm of colon (procedure) [code = 761807298] Future Scheduled 2023-05-25 [facility] 08:17:07 malignant neoplasm of colon (procedure) [code = 680385977] Future Scheduled 2023-05-25 [facility] 08:17:07 malignant neoplasm of colon (procedure) [code = 192056867] Future Scheduled 2023-05-25 COVID-19 VACCINE (6 [facility] 08:17:07 - season) [code = COVID-19 VACCINE ( - season)] Future Scheduled 2023-05-25 IN[facility]ENZA VACCINE [facility] 08:17:07 (#1) [code = INFLUENZA VACCINE (#1)] Future Scheduled 2023-05-25 [facility] 08:17:07 malignant neoplasm of colon (procedure) [code = 476280199] Future Scheduled 2023-05-25 [facility] 08:17: malignant neoplasm of colon (procedure) [code = 813945115] Encounters Start End Encounter Admission Attending Care Care Encounter Source Date/Time Date/Time Type Type Clinicians Facility Department ID 2023-05-16 2023-05-16 Infusion 1.2.840.1 [id number] Method[facility] 10:00:00 12:40:[address] 3.430.2.7 Hospit a .3.475094 l .8 2023-05-16 2023-05-16 Infusion 1.2.840.1 [id number] [facility] 10:00:00 12:40:[address] 3.430.2.7 Hospit a .3.208624 l .8 2023-03-16 2023-03-16 Infusion 1.2.840.1 [id number] 95256 [facility] 10:15:00 12:51:[address] 3.430.2.7 Hospit a .3.400164 l .8 2023-03-16 2023-03-16 Infusion 1.2.840.1 [id number] 63655 [facility] 10:15:00 12:51:[address] 3.430.2.7 Hospit a .3.191206 l .8 2023-01-31 2023-01-31 Outpatient Kirti OSBORN [facility] [id number] [facility] 14:30:00 15:31:27 MAREK weir [facility] 2023-01-31 2023-01-31 Office XAVI Osborn 1.2.840.114 [id number] [facility] 14:30:00 15:31:27 Visit Marek ARELLANO 350.1.13.10 carmella [facility] 4.2.7.2.686 [facility] [id number] [address] [facility] 2023-01-27 2023-01-27 Office Josiane 1.2.840.1 [id number] Method[facility] 14:45:00 15:22:21 Visit Solomon 86735.1.[address] 3.430.2.7 Hospit a .3.815265 l .8 2023-01-27 2023-01-27 [facility], 1.2.840.1 [id number] 81785 Methodi 14:45:00 15:22:21 Visit Solomon 31680.1.[address] 3.430.2.7 Hospit a .3.988694 l .8 2023-01-25 2023-01-25 Office Kathleen, 1.2.840.1 [id number] Methodi 14:00:00 14:45:39 Visit Isiah 09156.1.[address] [place] 3.430.2.7 Hospit a .3.151623 l .8 2023-01-25 2023-01-25 Office Kathleen, 1.2.840.1 [id number] 39036 Methodi 14:00:00 14:45:39 Visit Isiah 89712.1.[address] [place] 3.430.2.7 Hospit a .3.701699 l .8 2023-01-19 2023-01-19 Infusion 1.2.840.1 [id number] 39091 Method[facility] 10:15:00 12:43:[address] 3.430.2.7 Hospit a .3.351014 l .8 2023-01-19 2023-01-19 Infusion 1.2.840.1 [id number] 63013 54404 Methodi 10:15:00 12:43:[address] 3.430.2.7 Hospit a .3.522718 l .8 2022-11-24 2022-11-24 Infusion 1.2.840.1 [id number] 57380 Method[facility] 10:15:00 13:07:[address] 3.430.2.7 Hospit a .3.733590 l .8 2022-11-24 2022-11-24 Infusion 1.2.840.1 [id number] 14822 Method[facility] 10:15:00 13:07:[address] 3.430.2.7 Hospit a .3.604658 l .8 2022-11-24 2022-11-24 Travel 1.2.840.1 1.2.177.797 5336 679800 Methodi 00:00:00 00:00:[address] 3.430.2.7 0.2.7.3.698 Ho spita .3.752411 084.8 l .8 2022-11-24 2022-11-24 Travel 1.2.840.1 1.2.644.750 4261 166128 Methodi 00:00:00 00:00:[address] 3.430.2.7 0.2.7.3.698 Ho spita .3.772157 084.8 l .8 2022-11-05 2022-11-05 Orders Kauffman, 1.2.840.1 [id number] 9906 Methodi 00:00:00 00:00:00 Only Yolis 65096.1.[address] 3.430.2.7 Hospit a .3.962465 l .8 2022-11-05 2022-11-05 Orders Kauffman, 1.2.840.1 [id number] 4395 Methodi 00:00:00 00:00:00 Only Yolis 58011.1.[address] 3.430.2.7 Hospit a .3.662242 l .8 2022-10-08 2022-10-08 Refill Kosarac, 1.2.840.1 [id number] 59391 Methodi 00:00:00 00:00:[address] 3.430.2.7 Hospit a .3.988271 l .8 2022-10-08 2022-10-08 Refill [place], 1.2.840.1 [id number] Methodi 00:00:00 00:00:[address] 3.430.2.7 Hospit a .3.647302 l .8 2022-09-29 2022-09-29 Infusion 1.2.840.1 [id number] 56662 Methodi 10:15:00 12:42:[address] 3.430.2.7 Hospit a .3.603470 l .8 2022-09-29 2022-09-29 Infusion 1.2.840.1 [id number] 28634 Methodi 10:15:00 12:42:[address] 3.430.2.7 Hospit a .3.848199 l .8 2022-09-29 2022-09-29 Travel 1.2.840.1 1.2.642.775 4211 265913 Methodi 00:00:00 00:00:[address] 3.430.2.7 0.2.7.3.698 Ho spita .3.469301 084.8 l .8 2022-09-29 2022-09-29 Travel 1.2.840.1 1.2.553.110 1067 760402 Methodi 00:00:00 00:00:[address] 3.430.2.7 0.2.7.3.698 Ho spita .3.187155 084.8 l .8 2022-09-23 2022-09-23 Office Kathleen, 1.2.840.1 [id number] 04738 Methodi 14:00:00 14:50:19 Visit Isiah 32254.1.[address] [place] 3.430.2.7 Hospit a .3.804357 l .8 2022-09-23 2022-09-23 Office [facility], 1.2.840.1 [id number] 51445 Methodi 14:00:00 14:50:19 Visit Isiah 54666.1.[address] [place] 3.430.2.7 Hospit a .3.081467 l .8 2022-09-23 2022-09-23 Travel 1.2.840.1 1.2.583.142 0047 507992 Methodi 00:00:00 00:00:[address] 3.430.2.7 0.2.7.3.698 Ho spita .3.412853 084.8 l .8 2022-09-23 2022-09-23 Travel 1.2.840.1 1.2.394.295 5380 129913 Methodi 00:00:00 00:00:[address] 3.430.2.7 0.2.7.3.698 Ho spita .3.789338 084.8 l .8 2022-09-20 2022-09-20 Outpatient [id number] [facility] 15:15:00 15:15:00 MAREK weir [facility] 2022-09-14 2022-09-14 Orders Kauffman, 1.2.840.1 [id number] 8788 Methodi 00:00:00 00:00:00 Only Yolis 27658.1.[address] 3.430.2.7 Hospit a .3.786907 l .8 2022-09-14 2022-09-14 Orders Kauffman, 1.2.840.1 [id number] 8884 Methodi 00:00:00 00:00:00 Only Yolis 62424.1.[address] 3.430.2.7 Hospit a .3.862620 l .8 2022-09-02 2022-09-02 Orders Kauffman, 1.2.840.1 [id number] 2194 Methodi 00:00:00 00:00:00 Only Yolis 62942.1.[address] 3.430.2.7 Hospit a .3.348895 l .8 2022-09-02 2022-09-02 Orders Kauffman, 1.2.840.1 [id number] 825016 4293 Methodi 00:00:00 00:00:00 Only Yolis 42123.1.[address] 3.430.2.7 Hospit a .3.579282 l .8 2022-08-26 2022-08-26 Telephone Sanchez, 1.2.840.1 [id number] 2100 367397 Methodi 00:00:00 00:00:[address] 3.430.2.7 Hospit a .3.204769 l .8 2022-08-26 2022-08-26 Telephone Laura, 1.2.840.1 [id number] 2099 385846 Methodi 00:00:00 00:00:[address] 3.430.2.7 Hospit a .3.841843 l .8 2022-08-10 2022-08-10 [facility], 1.2.840.1 [id number] 2099 178339 Methodi 09:57:00 14:39:00 Encounter Isiah 08995.1.[address] [place] 3.430.2.7 Hospit a .3.929763 l .8 2022-08-10 2022-08-10 [facility], 1.2.840.1 [id number] 2099 [id number] Methodi 09:57:00 14:39:00 Encounter Isiah 98031.1.[address] [place] 3.430.2.7 Hospit a .3.702839 l .8 2022-08-10 2022-08-10 Anesthesia Hannah Patel 1.2.840.1 [id number] Methodi 12:43:00 13:52:00 Event Chelsea Denton 44503.1.[address] 3.430.2.7 Hospit a .3.760388 l .8 2022-08-10 2022-08-10 Anesthesia Hannah Patel 1.2.840.1 [id number] Methodi 12:43:00 13:52:00 Event Chelsea Denton 06456.1.[address] 3.430.2.7 Hospit a .3.108953 l .8 2022-08-10 2022-08-10 Surgery Kathleen, 1.2.840.1 [id number] Methodi 11:00:00 12:00:[address] [place] 3.430.2.7 Hospit a .3.768728 l .8 2022-08-10 2022-08-10 Surgery Kathleen, 1.2.840.1 [id number] Methodi 11:00:00 12:00:[address] [place] 3.430.2.7 Hospit a .3.911779 l .8 2022-08-10 2022-08-10 Travel 1.2.840.1 1.2.394.718 9430 409647 Methodi 00:00:00 00:00:[address] 3.430.2.7 0.2.7.3.698 Ho spita .3.868801 084.8 l .8 2022-08-10 2022-08-10 Travel 1.2.840.1 1.2.508.601 5123 775393 Methodi 00:00:00 00:00:[address] 3.430.2.7 0.2.7.3.698 Ho spita .3.977212 084.8 l .8 2022-08-06 2022-08-06 Orders Kauffman, 1.2.840.1 [id number] 6421 Methodi 00:00:00 00:00:00 Only Yolis 07046.1.[address] 3.430.2.7 Hospit a .3.653603 l .8 2022-08-06 2022-08-06 Travel 1.2.840.1 1.2.971.694 5279 091510 Methodi 00:00:00 00:00:[address] 3.430.2.7 0.2.7.3.698 Ho spita .3.745476 084.8 l .8 2022-08-06 2022-08-06 Orders Kauffman, 1.2.840.1 [id number] 9049 Methodi 00:00:00 00:00:00 Only Yolis 42336.1.[address] 3.430.2.7 Hospit a .3.393572 l .8 2022-08-06 2022-08-06 Travel 1.2.840.1 1.2.732.965 8609 170447 Methodi 00:00:00 00:00:[address] 3.430.2.7 0.2.7.3.698 Ho spita .3.665220 084.8 l .8 2022-08-04 2022-08-04 Infusion 1.2.840.1 [id number] Methodi 10:15:00 12:41:[address] 3.430.2.7 Hospit a .3.069968 l .8 2022-08-04 2022-08-04 Infusion 1.2.840.1 [id number] Methodi 10:15:00 12:41:[address] 3.430.2.7 Hospit a .3.674120 l .8 2022-08-04 2022-08-04 Travel 1.2.840.1 1.2.986.896 5398 095390 Methodi 00:00:00 00:00:[address] 3.430.2.7 0.2.7.3.698 Ho spita .3.376745 084.8 l .8 2022-08-04 2022-08-04 Travel 1.2.840.1 1.2.888.470 9438 095870 Methodi 00:00:00 00:00:[address] 3.430.2.7 0.2.7.3.698 Ho spita .3.911391 084.8 l .8 2022-07-21 2022-07-21 Telephone Kathleen, 1.2.840.1 [id number] Methodi 00:00:00 00:00:[address] [place] 3.430.2.7 Hospit a .3.498987 l .8 2022-07-21 2022-07-21 Telephone Kathleen, 1.2.840.1 [id number] [id number] Methodi 00:00:00 00:00:[address] [place] 3.430.2.7 Hospit a .3.451537 l .8 2022-07-14 2022-07-14 Orders Kauffman, 1.2.840.1 [id number] 8260 Methodi 00:00:00 00:00:00 Only Yolis 68430.1.[address] 3.430.2.7 Hospit a .3.926384 l .8 2022-07-14 2022-07-14 Orders Kauffman, 1.2.840.1 [id number] 5378 Methodi 00:00:00 00:00:00 Only Yolis 84124.1.[address] 3.430.2.7 Hospit a .3.807242 l .8 2022-07-02 2022-07-02 Orders Kauffman, 1.2.840.1 [id number] 9421 Methodi 00:00:00 00:00:00 Only Yolis 71533.1.[address] 3.430.2.7 Hospit a .3.351474 l .8 2022-07-02 2022-07-02 Orders Kauffman, 1.2.840.1 [id number] 7667 Methodi 00:00:00 00:00:00 Only Yolis 52141.1.[address] 3.430.2.7 Hospit a .3.922188 l .8 2022-06-22 2022-06-22 Travel 1.2.840.1 1.2.627.256 6613 096384 Methodi 00:00:00 00:00:[address] 3.430.2.7 0.2.7.3.698 Ho spita .3.011892 084.8 l .8 2022-06-22 2022-06-22 Travel 1.2.840.1 1.2.046.608 8699 062758 Methodi 00:00:00 00:00:[address] 3.430.2.7 0.2.7.3.698 Ho spita .3.906192 084.8 l .8 2022-06-17 2022-06-17 Office [facility], 1.2.840.1 [id number] Methodi 14:00:00 14:29:47 Visit Solomon 12273.1.[address] 3.430.2.7 Hospit a .3.713347 l .8 2022-06-17 2022-06-17 Office [facility], 1.2.840.1 [id number] Methodi 14:00:00 14:29:47 Visit Solomon 16621.1.[address] 3.430.2.7 Hospit a .3.066335 l .8 2022-06-16 2022-06-16 Orders Kathleen, 1.2.840.1 [id number] [id number] Methodi 00:00:00 00:00:00 Only Isiah 52817.1.[address] [place] 3.430.2.7 Hospit a .3.035215 l .8 2022-06-16 2022-06-16 Orders Kathleen, 1.2.840.1 [id number] 04269 50676 Methodi 00:00:00 00:00:00 Only Isiah 99766.1.[address] [place] 3.430.2.7 Hospit a .3.734990 l .8 2022-06-07 2022-06-07 Infusion 1.2.840.1 [id number] 22094 Methodi 10:15:00 12:56:[address] 3.430.2.7 Hospit a .3.409905 l .8 2022-06-07 2022-06-07 Infusion 1.2.840.1 [id number] 85657 58946 Methodi 10:15:00 12:56:[address] 3.430.2.7 Hospit a .3.917004 l .8 2022-06-07 2022-06-07 Travel 1.2.840.1 1.2.120.052 6918 756813 Methodi 00:00:00 00:00:[address] 3.430.2.7 0.2.7.3.698 Ho spita .3.257946 084.8 l .8 2022-06-07 2022-06-07 Travel 1.2.840.1 1.2.561.832 3003 823598 Methodi 00:00:00 00:00:[address] 3.430.2.7 0.2.7.3.698 Ho spita .3.546353 084.8 l .8 2022-06-02 2022-06-02 Office Lalitha Galvan RUST 1.2.840.114 [id number] [facility] 09:00:00 09:15:00 Visit Marek Osborn MULTISPEC 350.1.1 3.10 itJavier 4.2.7.2.686 [facility] [id number] [address] [facility] 2022-06-02 2022-06-02 Outpatient [facility] [id number] [facility] 09:00:00 09:00:00 MAREK weir [facility] 2022-05-06 2022-05-06 Outpatient [facility] [id number] [place] 00:00:00 00:00:00 SOLOMON [address] 2022-05-06 2022-05-06 Outpatient KIMBERLY [facility] [id number] [place] 00:00:00 00:00:00 BRANKA [address] 2022-04-14 2022-04-14 Outpatient [facility] [id number] [place] 00:00:00 00:00:[address] 2022-03-15 2022-03-15 Outpatient Kirti [facility] [id number] [facility] 11:15:00 12:01:57 MAREK weir [facility] 2022-03-15 2022-03-15 Office Anurag RUST [id number] [facility] 11:15:00 12:01:57 Visit Marek Chairez [facility] [id number] carmella [facility] [id number] [facility] [id number] [address] [facility] 2022-02-15 2022-02-15 Outpatient [facility] [id number] [place] 00:00:00 00:00:[address] 2022-02-15 2022-02-15 Outpatient KATHLEEN, [facility] [id number] [place] 00:00:00 00:00:00 ISIAH [address] 2021-12-17 2021-12-17 Outpatient KIMBERLYC, [facility] [id number] [place] 00:00:00 00:00:00 SOLOMON [address] 2021-12-16 2021-12-16 Outpatient [facility] [id number] [place] 00:00:00 00:00:[address] 2021-11-09 2021-11-09 Outpatient KATHLEEN, [facility] [id number] [place] 00:00:00 00:00:00 ISIAH [address] 2021-10-21 2021-10-21 Outpatient [facility] [id number] [place] 00:00:00 00:00:[address] 2021-10-12 2021-10-12 Outpatient KATHLEEN, [facility] [id number] [place] 00:00:00 00:00:00 ISIAH [address] 2021-08-26 2021-08-26 Outpatient [facility] [id number] [place] 00:00:00 00:00:[address] 2021-08-14 2021-08-14 Outpatient KATHLEEN, [facility] [id number] [place] 00:00:00 00:00:00 ISIAH [address] 2021-07-21 2021-07-21 Office Anurag RUST [id number] [facility] 10:15:00 10:52:48 Visit Marek Chairez [facility] 350.1.13.10 [place] [id number] [place] [facility] [id number] [address] [facility] 2021-07-21 2021-07-21 Outpatient Kirti [facility] [id number] [facility] 10:15:00 10:52:48 MAREK weir [facility] 2021-07-21 2021-07-21 Outpatient Kirti [facility] [id number] [facility] 10:15:00 10:15:00 MAREK weir [facility] 2021-07-21 2021-07-21 Telephone Anurag RUST [id number] [facility] 00:00:00 00:00:00 Marek Chairez MULTISPEC [id number] [id number] [facility] [id number] [address] [facility] 2021-07-20 2021-07-20 Outpatient JOSIANE, [facility] [id number] [place] 00:00:00 00:00:00 SOLOMON [address] [facility] 2021-07-14 2021-07-14 Telephone Claudia Topete RUST [id number] [facility] 00:00:00 00:00:00 MULTISPEC [id number] [id number] [facility] [id number] [address] [facility] 2021-07-06 2021-07-06 Outpatient Kirti [facility] [id number] [facility] 13:00:00 15:30:37 MAREK weir [facility] 2021-07-06 2021-07-06 Office Anurag RUST 1.2.840.114 [id number] Univers 13:00:00 15:30:37 Visit Mraek Chairez MULTISPEC 350.1.13.10 ity of [place] [id number] [facility] [place] [id number] [address] [facility] 2021-07-06 2021-07-06 Outpatient R ANURAG [facility] [id number] Univers 13:00:00 15:30:37 MAREK [facility] 2021-07-01 2021-07-01 Outpatient [facility] [id number] [place] 00:00:00 00:00:[address] 2021-06-29 2021-06-29 [facility] [id number] Univers 08:00:00 08:00:00 MAREK [facility] 2021-06-19 2021-06-19 [facility] [id number] [facility] 00:00:00 00:00:00 Marek Contreras MULTISPEC 350.1.13.10 ity of [place] 4.2.7.2.[address] [facility] [place] [id number] [address] [facility] 2021-06-16 2021-06-16 Outpatient [facility] [id number] [place] 00:00:00 00:00:00 BRANKA [address] 2021-05-06 2021-05-06 Outpatient [facility] [id number] [place] 00:00:00 00:00:00 844 [facility] 2021-05-01 2021-05-01 Outpatient [facility] [id number] [place] 00:00:00 00:00:00 BRANKA [address] 2021-03-12 2021-03-12 Office Xavi Brownlee RUST 1.2.840.114 [id number] Univers 13:58:40 14:28:42 Visit Dayami Acharya MULTISPEC 350.1.13. 10 ity of [place] 4.2.7.2.686 [facility] [id number] [address] [facility] 2021-03-12 2021-03-12 Outpatient R [facility] [id number] Univers 14:00:00 14:00:00 ity of [facility] 2021-03-11 2021-03-11 Outpatient [facility] [id number] [place] 00:00:00 00:00:00 533 [facility] i 2021-01-26 2021-01-26 Outpatient Kirti OSBORN [facility] [id number] Univers 15:00:00 15:00:00 MAREK ity [facility] 2021-01-16 2021-01-16 Outpatient [facility] [id number] [place] 00:00:00 00:00:[address] 2021-01-16 2021-01-16 Outpatient KATHLEEN, [facility] [id number] [place] 00:00:00 00:00:00 ISIAH 735 [facility] i 2020-11-20 2020-11-20 Outpatient [facility] [id number] [place] 00:00:00 00:00:00 183 [facility] i 2020-10-30 2020-10-30 Outpatient KATHLEEN, [facility] [id number] [place] 00:00:00 00:00:00 ISIAH [address] 2020-10-30 2020-10-30 Outpatient KATHLEEN, [facility] [id number] [place] 00:00:00 00:00:00 ISIAH 727 [facility] 2020-09-26 2020-09-26 Outpatient [facility] [id number] [place] 00:00:00 00:00:00 685 [facility] i 2020-09-25 2020-09-25 Outpatient SHAMEKAARAC, [facility] [id number] [place] 00:00:00 00:00:00 SOLOMON [address] 2020-09-20 2020-09-20 Outpatient [facility] [id number] Univers 11:50:00 11:50:00 ity [facility] 2020-09-08 2020-09-08 Telephone Kem RUST [id number] Univers 00:00:00 00:00:00 Xavi LOPEZPEC 350.1.13.10 ity [facility] 4.2.7.2.686 [facility] [id number] [address] [facility] 2020-08-23 2020-08-23 Outpatient [facility] [id number] Univers 11:40:00 11:40:00 ity [facility] 2020-08-22 2020-08-22 Outpatient Kirti WORLEY [facility] [id number] Univers 14:45:00 14:45:00 BARBARA ity [facility] 2020-08-05 2020-08-05 Outpatient ESEQUIELI, [facility] [id number] [place] 00:00:00 00:00:00 EDY [address] 2020-08-01 2020-08-01 Outpatient [facility] [id number] [place] 00:00:00 00:00:[address] 2020-07-30 2020-07-30 Office Xavi Brownlee RUST 1.2.840.114 [id number] Univers 13:27:06 14:18:30 Visit Manny Mann MULTISPEC 350.1.13.10 [facility] 4.2.7.2.686 [facility] [id number] [facility] [address] [facility]IC 2020-07-30 2020-07-30 Outpatient MANNY ANDERSON [facility] [id number] Univers 13:30:00 13:30:00 MANNY MANN i [facility] 2020-07-30 2020-07-30 Orders Doctor DARWIN 1.2.840.114 [id number] Univers 00:00:00 00:00:00 Only Unassigned, MOHAN 350.1.13.10 ity of [place] [facility] 4.2.7.2.686 [facility] [id number] [place] [address] [address] 2020-06-26 2020-06-26 Outpatient [facility] [id number] [place] 00:00:00 00:00:[address] 2020-06-26 2020-06-26 Outpatient KIMBERLY, [facility] [id number] [place] 00:00:00 00:00:00 BRANKA [address] 2020-06-06 2020-06-06 Outpatient [facility] [id number] [place] 00:00:00 00:00:[address] 2020-04-11 2020-04-11 Outpatient [facility] [id number] [place] 00:00:00 00:00:[address] 2020-04-07 2020-04-07 Outpatient Kirti OSBORN [facility] [id number] Univers 14:25:00 14:25:00 MAREK weir [facility] 2020-03-05 2020-03-05 Outpatient [facility] [id number] [place] 00:00:00 00:00:[address] 2020-02-27 2020-02-27 Outpatient [facility] [id number] [place] 00:00:00 00:00:[address] 2020-02-08 2020-02-08 Outpatient [facility] [id number] [place] 00:00:00 00:00:[address] 2020-01-09 2020-01-09 Outpatient [facility] [id number] [place] 00:00:00 00:00:[address] 2020-01-09 2020-01-09 Outpatient KATHLEEN, [facility] [id number] [place] 00:00:00 00:00:00 ISIAH [address] 2019-12-21 2019-12-21 Outpatient [facility] [id number] [place] 00:00:00 00:00:[address] 2019-12-12 2019-12-12 Outpatient [facility] [id number] [place] 00:00:00 00:00:[address] 2019-10-16 2019-10-16 Outpatient [facility] [id number] [place] 00:00:00 00:00:[address] 2019-09-17 2019-09-17 Office Anurag FLTK 1.2.840.114 [id number] Univers 14:59:29 15:09:29 Visit Marek ARELLANO 350.1.13.10 [facility] С[facility]ТЛАНА 4.2.7.2.686 [facility] [id number] [address] [facility]ES [facility] 2019-09-17 2019-09-17 Outpatient Kirti OSBORN [facility] [id number] Univers 15:00:00 15:00:00 MAREK weir [facility] 2019-09-17 2019-09-17 Orders Doctor GRANADOS 1.2.840.[id number] [place] [address] 00:00:00 00:00:00 Only Unassigned, MOHAN 350.1.13.10 ity of [place] [facility] 4.2.7.2.686 Mike as [id number] [place] [address] [address] 2019-09-14 2019-09-14 Outpatient [facility] [id number] [place] 00:00:00 00:00:00 OTRAMAINE [address] 2019-05-08 2019-05-09 Outpatient [facility] [id number] [place] 00:00:00 00:00:00 O, TRAMAINE [address] Results Test Description Test Time Test Comments Results Result Comments Source QuantiFERON-TB Gold Plus, 1 Tube 2023-05-19 11:49:00 Test Item Value Reference Range Interpretation Comme nts Quantiferon TB gold NEGATIVE NEGATIVE Negative test result. M. plus (test code = tuberculos is complex 46830-4) infection unlik mireya. Quantiferon NIL (test 0.01 IU/mL code = 07379-8) Quantiferon mitogen 8.23 IU/mL minus NIL (test code = 91489-4) Quantiferon plus TB1 0.01 IU/mL minus NIL (test code = 20404-0) Quantiferon plus TB2 0.01 IU/mL The Ni l tube value reflects minus NIL (test code = the b ackground 39840-4) interferongamma immune response of the patient's blood [...] T-lymphocytes. For additional info rmation, please refer tohttps://educa tion.JustFoodForDogs/fa q/YOG717(This link is being p rovided for informational/e ducational purposes only.) RAC (test code = RAC) Performing Organization Information: Site ID: CALEB Name: [facility] Address: [address] [place], [place] [address] Director: Ilia Patel [facility] Worth[facility]antiFER[facility]-TB Gold Plus, 1 [id number] 11:49:00 Test Item Value Reference Interpretation Comments Range Quantiferon TB NEGATIVE NEGATIVE Negative test result. gold plus (test M. tuberculo sis code = 38451-0) complex infe ction unlikely. Quantiferon NIL 0.01 IU/mL (test code = 53872-8) Quantiferon 8.23 IU/mL mitogen minus NIL (test code = 80028-2) Quantiferon plus 0.01 IU/mL TB1 minus NIL (test code = 99021-3) Quantiferon plus 0.01 IU/mL The Nil tu be value TB2 minus NIL reflects the (test code = background 87142-9) interferongamma immune response of the patient's blood sample.This celestino ue has been subtracted from the patient'sdi splayed TB and Mitogen results. Lower than expected result s with the Mitogen tubeprevent false-negative Quantiferon marcel dings bydetecting a p atient with a potentia l immunesuppressi ve condition and/o r suboptimal pre-analyticals pecimen handling. The T B1 Antigen tube is coated with theM. tuberculosis-sp ecific antigens design ed to elicitresponses from TB antigen prim ed CD4+ helperT-lymphoc ytes. The TB2 Antigen tube is coated with theM. tuberculosis-sp ecific antigens design ed to elicitresponses from TB antigen prim ed CD4+ helper and CD8+cytotoxic T-lymphocytes. For additional information, pl ease refer tohttps://cinthya amos. Tensorcom/faq /QBL171(This li nk is being provided for informational/e ducatio nal purposes on ly.) RAC (test code = Performing RAC) Organization Information: Site ID: CALEB Name: [facility] Address: [address] [place] [address] Director: Ilia Patel [facility] [id number] 04:20:00 Test Item Value Reference Range Interpretation Comments Glucose (test code = 94 mg/dL 65-99 Fastin g 2345-7) reference interval BUN (test code = 18 mg/dL 7-25 3094-0) Creatinine (test 0.75 mg/dL 0.70-1.28 code = 2160-0) eGFR (test code = 95 See_Comment [Automate d 04782-5) message] The system which generated this result [...] . Sodium (test code = 138 mmol/L 393-295 6412-2) Potassium (test code 5.5 mmol/L 3.5-5.3 H Red bl ood cells = 2823-3) were present in the sample upon receiptin the laboratory. A false elevation of K, Phos and LDas well as a false decrease in Glucose may occ ur due to prolonge d contact with re d cells. Chloride (test code 104 mmol/L 98-110 = 2075-0) CO2 (test code = 24 mmol/L 20-32 8-9) Calcium (test code = 8.9 mg/dL 8.6-10.3 63713-3) Protein (test code = 6.5 g/dL 6.1-8.1 2885-2) Albumin (test code = 3.9 g/dL 3.6-5.1 1751-7) Globulin, total 2.6 See_Comment [Automated (test code = message] The 87976-8) system which generated this result transmitted reference range : 1.9 - 3.7 g/dL (calc). The reference range was not used to interpret this result as normal/abnormal . Albumin/globulin 1.5 See_Comment [Automated ratio (test code = message] The 1759-0) system which generated this result transmitted reference range : 1.0 - 2.5 (calc ). The reference range was not used to interpr et this result as normal/abnormal . Total bilirubin 0.5 mg/dL 0.2-1.2 (test code = 1974-2) Alkaline phosphatase 84 U/L 35-144 (test code = 6768-6) AST (test code = 28 U/L 10-35 Results i [facility] 1919-8) increased due t o hemolysis. ALT (test code = 11 U/L 9-46 1742-6) RAC (test code = Performing RAC) Organization Information: Site ID: RGA Name: [facility] Address: [address] [place] [address] Director: Ilia Patel Lab Interpretation Abnormal (test code = 35422-7) [facility] WorthVitamin B12 [id number] 04:20:00 Test Item Value Reference Range Interpretation Comments Vitamin B12 (test code = 1266 pg/mL 200-1100 H 2-9) RAC (test code = RAC) Performing Organization Information: Site ID: A Name: [facility] Address: [address] [place] [address] Director: Ilia Patel Lab Interpretation (test Abnormal code = 94473-0) [facility] WorthFerritin [id number] 04:20:00 Test Item Value Reference Range Interpretation Comments Ferritin level (test 8 ng/mL 24-380 L code = 2276-4) RAC (test code = RAC) Performing Organization Information: Site ID: RGA Name: [facility] Address: [address] [place] [address] Director: Ilia Patel Lab Interpretation (test Abnormal code = 49319-0) [facility] WorthFolate [id number] 04:20:00 Test Item Value Reference Range Interpretation Comments Folate (test 21.8 ng/mL Reference Rang e code = 2284-8) Low: <3.4 Borderline: 3.4-5.4 Normal: >5.4 RAC (test code Performing = RAC) Organization Information: Site ID: A Name: [facility] Address: [address] [place] [address] Director: [facility]-reactive [id number] 04:20:00 Test Item Value Reference Range Interpretation Comments CRP (test code = 2.2 mg/L <=8.0 1988-5) RAC (test code = Performing Organization RAC) Information: Site ID: RGA Name: [facility] Address: [address] [place] [address] Director: [facility] with platelet and daqlxpzlrmbk5714-07-34 04:20:00 Test Item Value Reference Range Interpretation Comments WBC (test code = 5.5 See_Comment [Automated 6690-2) message] The system which generated this result transmitted reference range : 3.8 - 10.8 Thousand/uL. Th e reference range was not used to interpret this result as normal/abnormal . RBC (test code = 3.70 See_Comment L [Automated 829-8) message] The system which generated this result [...] RAC) Organization Information: Site ID: RGA Name: [facility] Address: [address] [place] [address] Director: Ilia Patel Lab Interpretation Abnormal (test code = 36208-2) [facility] [id number] 04:20:00 Test Item Value Reference Range Interpretation Comments Sedimentation rate 6 mm/h See_Comment [Automat ed (test code = 4537-7) message ] The system which generated this result transmitted reference range : < OR = 20. The reference range was not used to interpret this result as normal/abnormal . RAC (test code = Performing RAC) Organization Information: Site ID: A Name: [facility] Lab Address: [address] [place] [address] Director: Ilia Patel [facility] WorthVitamin D 25 hydroxy [id number] 04:20:00 Test Item Value Reference Range Interpretation Comments Vitamin D, 56 ng/mL 30-100 Vitamin D Statu s 25-hydroxy (test 25-OH Vitam in D: code = 1989-) Deficiency: <20 ng/mLInsufficie ncy : 20 - [...] please refer to http://educatio n.Q uestDiagnostics .co m/faq/PNN791 (T his link is being provided for informational/e carine ational purpose s only.) RAC (test code = Performing RAC) Organization Information: Site ID: [facility] Name: [facility] Address: [address] [place] [address] Director: Ilia Patel [facility] iron binding [id number] 04:20:00 Test Item Value Reference Range Interpretation [...] RAC) Organization Information: Site ID: RGA Name: [facility] Address: [address] [place] [address] Director: Ilia Patel Lab Interpretation Abnormal (test code = 90691-2) [facility] [id number] 04:20:00 Test Item Value Reference Range Interpretation Comments Glucose (test code = 94 mg/dL 65-99 Fastin g 2345-7) reference interval BUN (test code = 18 mg/dL 7-25 3094-0) Creatinine (test 0.75 mg/dL 0.70-1.28 code = 2160-0) eGFR (test code = 95 See_Comment [Automate d 76111-4) message] The system which generated this result [...] . Sodium (test code = 138 mmol/L 639-197 8632-2) Potassium (test code 5.5 mmol/L 3.5-5.3 H Red bl ood cells = 2823-3) were present in the sample upon receiptin the laboratory. A false elevation of K, Phos and LDas well as a false decrease in Glucose may occ ur due to prolonge d contact with re d cells. Chloride (test code 104 mmol/L 98-110 = 2075-0) CO2 (test code = 24 mmol/L 20-32 8-9) Calcium (test code = 8.9 mg/dL 8.6-10.3 79043-7) Protein (test code = 6.5 g/dL 6.1-8.1 2885-2) Albumin (test code = 3.9 g/dL 3.6-5.1 1751-7) Globulin, total 2.6 See_Comment [Automated (test code = message] The 20661-0) system which generated this result transmitted reference range : 1.9 - 3.7 g/dL (calc). The reference range was not used to interpret this result as normal/abnormal . Albumin/globulin 1.5 See_Comment [Automated ratio (test code = message] The 1699-0) system which generated this result transmitted reference range : 1.0 - 2.5 (calc ). The reference range was not used to interpr et this result as normal/abnormal . Total bilirubin 0.5 mg/dL 0.2-1.2 (test code = 1975-2) Alkaline phosphatase 84 U/L 35-144 (test code = 6768-6) AST (test code = 28 U/L 10-35 Results i maurisio 1919-8) increased due t o hemolysis. ALT (test code = 11 U/L 9-46 1742-6) RAC (test code = Performing RAC) Organization Information: Site ID: RGA Name: [facility] Address: [address] [place] [address] Director: Ilia Patel Lab Interpretation Abnormal (test code = 86575-3) [facility] WorthVitamin B12 [id number] 04:20:00 Test Item Value Reference Range Interpretation Comments Vitamin B12 (test code = 1266 pg/mL 200-1100 H 2-9) RAC (test code = RAC) Performing Organization Information: Site ID: A Name: [facility] Address: [address] [place] [address] Director: Ilia Patel Lab Interpretation (test Abnormal code = 21589-6) [facility] WorthFerritin [id number] 04:20:00 Test Item Value Reference Range Interpretation Comments Ferritin level (test 8 ng/mL 24-380 L code = 2276-4) RAC (test code = RAC) Performing Organization Information: Site ID: A Name: [facility] Address: [address] [place] [address] Director: Ilia Patel Lab Interpretation (test Abnormal code = 43571-8) [facility] Worth[facility] [id number] 04:20:00 Test Item Value Reference Range Interpretation Comments Folate (test 21.8 ng/mL Reference Rang e code = 2284-8) Low: <3.4 Borderline: 3.4-5.4 Normal: >5.4 RAC (test code Performing = RAC) Organization Information: Site ID: A Name: [facility] Address: [address] [place] [address] Director: [facility]-reactive [id number] 04:20:00 Test Item Value Reference Range Interpretation Comments CRP (test code = 2.2 mg/L <=8.0 1987-5) RAC (test code = Performing Organization RAC) Information: Site ID: RGA Name: [facility] Address: [address] [place] [address] Director: [facility] with platelet and [id number] 04:20:00 Test Item Value Reference Range Interpretation Comments WBC (test code = 5.5 See_Comment [Automated 6690-2) message] The system which generated this result transmitted reference range : 3.8 - 10.8 Thousand/uL. Th e reference range was not used to interpret this result as normal/abnormal . RBC (test code = 3.70 See_Comment L [Automated 789-8) message] The system which generated this result [...] RAC) Organization Information: Site ID: RGA Name: [facility] Address: [address] [place] [address] Director: Ilia Patel Lab Interpretation Abnormal (test code = 20620-5) [facility] [id number] 04:20:00 Test Item Value Reference Range Interpretation Comments Sedimentation rate 6 mm/h See_Comment [Automat ed (test code = 4537-7) message ] The system which generated this result transmitted reference range : < OR = 20. The reference range was not used to interpret this result as normal/abnormal . RAC (test code = Performing RAC) Organization Information: Site ID: RGA Name: [facility] Address: [address] [place], [place] [id number] Director: Ilia Patel [facility] WorthVitamin D 25 hydroxy [id number] 04:20:00 Test Item Value Reference Range Interpretation Comments Vitamin D, 56 ng/mL 30-100 Vitamin D Statu s 25-hydroxy (test 25-OH Vitam in D: code = 1989-) Deficiency: < 20 ng/mLInsufficie ncy : 20 - 29 ng/mLOptimal: [...] please refer to http://educatio n.Q uestDiagnostics .co m/faq/WAP725 (T his link is being provided for informational/e carine ational purpose s only.) RAC (test code = Performing RAC) Organization Information: Site ID: A Name: [facility] Address: [address] [place] [address] Director: Ilia Patel [facility] iron binding [id number] 04:20:00 Test Item Value Reference Range Interpretation [...] RAC) Organization Information: Site ID: RGA Name: [facility] Address: [address] [place] [address] Director: Ilia Patel Lab Interpretation Abnormal (test code = 79950-5) [facility] [id number] 04:20:00Specimen integrity compromisedQUEST DIAGNOSTICS-CHARLIE IIPerforming Organization Information: Site ID: IG Name: [facility] Address: [address] [place] [address] Director: Dr. Heri SalamancaTexas [facility] SPECIMEN INTEGRITY [id number] 04:20:00Specimen integrity compromisedQUEST DIAGNOSTICS-CHAR[facility] IIPerforming Organization Information: Site ID: IG Name: [facility] Lab Address: [address] [place] [address] Director: Dr. Heri BetancourtMemorial Hermann Southwest HospitalFecal [id number] 03:38:00 Test Item Value Reference Interpretation Comments Range Fecal calprotectin 386 mcg/g H Referen ce Range: <50 (test code = Normal 50-120 87976-4) Borderline >120 Elevated Calpro tectin in Crohn's [...] RAC) Organization Information: Site ID: EZ Name: Bryant Orozco/Alfonzo larios [facility], Address: [address] [place] [address] Director: Danielle Jones MD,PhD,DERECK Lab Interpretation Abnormal (test code = 34692-3) [facility] [id number] 03:38:00 Test Item Value Reference Interpretation Comments Range Fecal calprotectin 386 mcg/g H Referenc e Range: <50 (test code = Normal 50-120 30254-7) Borderline >12 0 Elevated Calpro tectin in Crohn's dise ase [...] RAC) Organization Information: Site ID: EZ Name: [facility] harriet [facility], Address: [address] [place] [address] Director: Danielle Jones MD,PhD,DERECK Lab Interpretation Abnormal (test code = 49364-8) [place] [address], [id number] 17:58:00 Test Item Value Reference Range Interpretation Comments T4, free (test code 1.2 ng/dL 0.8-1.8 = 3024-7) RAC (test code = Performing Organization RAC) Information: Site ID: RGA Name: [facility] Address: [address] [place] [address] Director: Heri NathanMount St. Mary HospitalThyroid stimulating [id number] 17:58:00 Test Item Value Reference Range Interpretation Comments TSH (test 1.11 See_Comment [Automated mes luis] code = The system whic h 3016-3) generated this result transmit ita reference range : 0.40 - 4.50 mIU /L. The reference r rox was not used to interpret this result as normal/abnormal . RAC (test Performing code = RAC) Organization Information: Site ID: RGA Name: [facility] Address: [address] [place] [address] Director: Heri Bet[place]ourtWilliam [place] [id number] 17:58:00 Test Item Value Reference Range Interpretation Comments T3 (test code = 84 ng/dL 76-181 3053-6) RAC (test code = Performing Organization RAC) Information: Site ID: RGA Name: [facility] Address: [address] [place], [place] [id number] Director: Heri Nathan[address]2023-03-08 17:58:00 Test Item Value Reference Range Interpretation Comments T4, free (test code 1.2 ng/dL 0.8-1.8 = 3024-7) RAC (test code = Performing Organization RAC) Information: Site ID: KATHYA Name: [facility] Address: [address] [place] [address] Director: [facility] CampusThyroid stimulating [id number] 17:58:00 Test Item Value Reference Range Interpretation Comments TSH (test 1.11 See_Comment [Automated mes luis] code = The system whic h 3016-3) generated this result transmit ita reference range : 0.40 - 4.50 mIU /L. The reference r rox was not used to interpret this result as normal/abnormal . RAC (test Performing code = RAC) Organization Information: Site ID: [facility] Name: [facility] Address: [address] [place] [address] Director: [facility] [id number] 17:58:00 Test Item Value Reference Range Interpretation Comments T3 (test code = 84 ng/dL 76-181 3053-6) RAC (test code = Performing Organization RAC) Information: Site ID: [facility] Name: [facility] Address: [address] [place] [address] [facility] [id number] 19:38:18 Test Item Value Reference Range Interpretation Comments Case number (test code = [id number]) Surgical pathology See link below for report (test code = PDF Lab Report 2255) Result status (test code This is Final Report = [id number]) [address] [id number] 19:38:18 Test Item Value Reference Range Interpretation Comments Case number (test code = [id number]) Surgical pathology See link below for report (test code = PDF Lab Report 2255) Result status (test code This is Final Report = [id number]) for [address]
[2023-05-31 08:43] LABS: Absolute Lymphocytes (CBC) 0.7 K/uL (0.7-4.9); Hematocrit 35.7 % (39.6-49.0); Lymphocytes % 11.1 % (15.3-44.8); MCV 88.3 fL (80-100); MPV 7.4 fL (7.6-11.3); Platelets 253 thou/uL (152-406); RBC Red Blood Cell Count 4.04 M/uL (4.33-5.43)
[2023-05-31 09:00] LABS: Potassium 3.8 mEq/L (3.5-5.1)
--- NOTE | 2023-05-31 09:08 | RAD REPORT ---
EXAM DESCRIPTION: RAD - Chest Single View - 05/31/2023 8:58 am CLINICAL HISTORY: PALPITATIONS COMPARISON: Chest Single View dated 05/26/2023; Chest Single View dated 12/19/2018; Abdomen 1 View (KUB ) dated 02/04/2016; CHEST SINGLE VIEW dated 05/01/2012 FINDINGS: Lines: None. Lungs: No evidence of edema or pneumonia. Pleural: No significant pleural effusions or pneumothorax. Cardiac: The heart size is within normal limits. Mediastinum: Within normal limits. Bones: No acute fractures. Other: None IMPRESSION: No acute cardiopulmonary disease.
--- NOTE | 2023-05-31 09:16 | ER ---
Nurse's Notes [facility] Name: Madi Tiwari III Age: 72 yrs Sex: Male : 1950 Arrival Date: 05/31/2023 Time: 08:04 Bed 20 Private MD: Diagnosis: Palpitations Presentation: 05/31 08:07 Chief complaint: EMS states: palpitations that began this morning. denies chest pain or kc6 sob. BGL en route 96. Coronavirus screen: At this time, the client does not indicate any symptoms associated with coronavirus-19. Ebola Screen: No symptoms or risks identified at this time. Initial Sepsis Screen: Does the patient meet any 2 criteria? No. Patient's initial sepsis screen is negative. Does the patient have a suspected source of infection? No. Patient's initial sepsis screen is negative. Risk Assessment: Do you want to hurt yourself or someone else? Patient reports no desire to harm self or others. Onset of symptoms was May 31, 2023. 08:07 Method Of Arrival: EMS: [facility] kc6 08:07 Acuity: ONDINA 3 kc6 Triage Assessment: 08:08 General: Appears in no apparent distress. comfortable, Behavior is cooperative, kc6 appropriate for age, anxious. Pain: Denies pain. EENT: No signs and/or symptoms were reported regarding the EENT system. Neuro: Level of Consciousness is awake, alert, obeys commands, Oriented to person, place, time, situation, Appropriate for age. Cardiovascular: Reports palpitations, Denies chest pain, shortness of breath, Heart tones S1 S2 present Capillary refill < 3 seconds Rhythm is sinus rhythm. Respiratory: Airway is patent Trachea midline Respiratory effort is even, unlabored, Respiratory pattern is regular, symmetrical. GI: No signs and/or symptoms were reported involving the gastrointestinal system. : No signs and/or symptoms were reported regarding the genitourinary system. Derm: No signs and/or symptoms reported regarding the dermatologic system. Skin is intact, is healthy with good turgor, Skin is pink, warm \T\ dry. Musculoskeletal: No signs and/or symptoms reported regarding the musculoskeletal system. Circulation, motion, and sensation intact. Capillary refill < 3 seconds, Range of motion: intact in all extremities. Historical: - Allergies: 08:08 No Known Allergies; kc6 - PMHx: 08:08 Anemia; Anxiety; Atrial Fib; Crohn's; Hypertension; Hypothyroidism; neuropathy; kc6 osteoarthristis; - PSHx: 08:08 chest (rt); Colon (rt); kc6 - Immunization history:: Client reports receiving the 2nd dose of the Covid vaccine, Flu vaccine is not up to date. - Social history:: Smoking status: Patient denies any tobacco usage or history of. Screenin:[facility] ED Fall Risk Assessment (Adult) History of falling in the last 3 months, kc6 including since admission No falls in past 3 months (0 pts) Confusion or Disorientation No (0 pts) Intoxicated or Sedated No (0 pts) Impaired Gait No (0 pts) Mobility Assist Device Used No (0 pt) Altered Elimination No (0 pt) Score/Fall Risk Level 0 - 2 = Low Risk. Abuse screen: Denies threats or abuse. Denies injuries from another. Nutritional screening: No deficits noted. Tuberculosis screening: No symptoms or risk factors identified. Assessment: 08:10 Reassessment: please see triage assessment. kc6 09:10 Reassessment: Patient appears in no apparent distress at this time. No changes from kc6 previously documented assessment. Patient and/or family updated on plan of care and expected duration. Pain level reassessed. Patient is alert, oriented x 3, equal unlabored respirations, skin warm/dry/pink. Vital Signs: 08:07 BP 149 / 81; Pulse 80; Resp 14 S; Temp 98.4(O); Pulse Ox 98% on R/A; Weight 88.45 kg kc6 (M); Height 6 ft. 0 in. (R); 08:07 Body Mass Index 26.45 (88.45 kg, 182.88 cm) 6 ED Course: 08:07 Patient arrived in ED. kc6 08:08 Óscar Ugalde MD is Attending Physician. ec2 08:08 Triage completed. kc6 08:08 Arm band placed on. kc6 08:10 Maintain EMS IV. Dressing intact. Good blood return noted. Site clean \T\ dry. Gauge \T\ graciela 6 site: 18G LAC. Patient maintains SpO2 saturation greater than 95% on room air. 08:11 Georgette Sosa RN is Primary Nurse. kc6 08:11 Patient has correct armband on for positive identification. Bed in low position. Call [facility] light in reach. Side rails up X2. Adult w/ patient. Client placed on continuous cardiac and pulse oximetry monitoring. NIBP monitoring applied. hospital monitor on. 08:20 Door closed. Noise minimized. Lights dimmed. Warm blanket given. Pillow given. Head of [facility] bed elevated. 08:29 Inserted saline lock: 22 gauge 24 gauge in right forearm, using aseptic technique. ds4 wrist, using aseptic technique. Blood collected. 08:31 Basic Metabolic Panel Sent. ds4 08:31 CBC with Diff Sent. ds4 09:00 XRAY Chest (1 view) In Process Unspecified. EDMS 09:43 No provider procedures requiring assistance completed. IV discontinued, intact, kc6 bleeding controlled, No redness/swelling at site. Pressure dressing applied. Administered Medications: 09:33 Drug: hydrOXYzine PO 50 mg PO once Route: PO; [facility] 09:43 Follow up: Response: No adverse reaction [facility] Medication: 09:44 VIS not applicable for this client. [facility] Outcome: 09:16 Discharge ordered by . ec2 09:43 Discharged to home via wheelchair, with significant other, [facility] 09:43 Condition: good 09:43 Discharge instructions given to patient, significant other, Instructed on discharge instructions, follow up and referral plans. Demonstrated understanding of instructions, follow-up care, 09:44 Patient left the ED. kc6 Signatures: Dispatcher [employer] Gustavo Armas ds4 Georgette Sosa RN RN kc6 Óscar Ugalde MD MD ec2
--- NOTE | 2023-05-31 09:16 | EDPHYS ---
Physician Documentation [facility] Name: Madi Tiwari III Age: 72 yrs Sex: Male : 1950 Arrival Date: 05/31/2023 Time: 08:04 Bed 20 Private MD: ED Physician Óscar Ugalde HPI: 05/31 08:08 This 72 yrs old Male presents to ER via EMS with complaints of Palpitations. ec2 08:08 Patient arrives today for evaluation of palpitations. He states that he woke up this ec2 morning and felt palpitations, states history of PVCs. EMS reports that they noted PVCs on the monitor. Patient denies any chest pain or shortness of breath, reports that he has recently gotten over some diarrhea.. Historical: - Allergies: 08:08 No Known Allergies; kc6 - PMHx: 08:08 Anemia; Anxiety; Atrial Fib; Crohn's; Hypertension; Hypothyroidism; neuropathy; kc6 osteoarthristis; - PSHx: 08:08 chest (rt); Colon (rt); kc6 - Immunization history:: Client reports receiving the 2nd dose of the Covid vaccine, Flu vaccine is not up to date. - Social history:: Smoking status: Patient denies any tobacco usage or history of. ROS: 08:08 Constitutional: as per hpi ec2 Exam: 08:08 Constitutional: GEN: NAD Head: atraumatic Eyes: EOMI Ears: External ears are ec2 normal. CV: regular rate LUNGS: no respiratory distress, no wheezes, rales, rhonchi ABD: non-distended SKIN: no evidence of rashes MSK: no evidence of trauma NEURO: moves all extremities equally Vital Signs: 08:07 BP 149 / 81; Pulse 80; Resp 14 S; Temp 98.4(O); Pulse Ox 98% on R/A; Weight 88.45 kg kc6 (M); Height 6 ft. 0 in. (R); 08:07 Body Mass Index 26.45 (88.45 kg, 182.88 cm) kc6 MDM: 08:08 Patient medically screened. ec2 08:08 Data reviewed: vital signs. ED course: Patient arrives today for evaluation of ec2 palpitations. Examination remarkable for well-appearing nontoxic individual is otherwise in no acute distress. Will obtain lab work, EKG, chest x-ray for further assessment of the patient's complaint. Currently consider electrolyte disturbances, arrhythmia, PVCs.. 09:09 ED course: Metabolic profile is reassuring. CBC is reassuring with slight anemia ec2 appreciated with a hemoglobin of 11.8. Chest x-ray shows no acute intrathoracic process. On reassessment patient is well-appearing in no acute distress, PVCs were noted on monitor which I suspect is the underlying cause of the patient's symptoms. Will discharge home and have him follow-up with a primary care doctor. Return precautions given. . 05/31 08:08 Order name: Basic Metabolic Panel; Complete Time: 09:09 ec2 05/31 08:08 Order name: CBC with Diff; Complete Time: 09:09 ec2 05/31 08:08 Order name: XRAY Chest (1 view); Complete Time: 09:09 ec2 05/31 08:08 Order name: EKG; Complete Time: 08:09 ec2 05/31 08:08 Order name: Cardiac monitoring; Complete Time: 08:11 ec2 05/31 08:08 Order name: EKG - Nurse/Tech; Complete Time: 08:20 ec2 05/31 08:08 Order name: IV Saline Lock; Complete Time: 08:20 ec2 05/31 08:08 Order name: Labs collected and sent; Complete Time: 08:20 ec2 05/31 08:08 Order name: O2 Per Protocol; Complete Time: 08:11 ec2 05/31 08:08 Order name: O2 Sat Monitoring; Complete Time: 08:11 ec2 Administered Medications: 09:33 Drug: hydrOXYzine PO 50 mg PO once Route: PO; 6 09:43 Follow up: Response: No adverse reaction kc6 Disposition Summary: 05/31/23 09:16 Discharge Ordered Notes: Location: Home ec2 Condition: Stable ec2 Diagnosis - Palpitations ec2 Discharge Instructions: - Discharge Summary Sheet ec2 - Palpitations ec2 Forms: - Medication Reconciliation Form ec2 - Thank You Letter ec2 - Antibiotic Education ec2 - Prescription Opioid Use ec2 - Patient Portal Instructions ec2 - Leadership Thank You Letter ec2 Signatures: Dispatcher [employer] Georgette Florence RN RN kc6 Óscar Ugalde MD MD ec2
[2023-05-31] MEDS ORDERED: hydrOXYzine HCL 25 MG TAB ONE (09:40)
[2023-05-31 09:52] VITALS: BP 149/81; TEMP 98.4; O2SAT 98
--- NOTE | 2023-06-01 17:25 | EKG ---
Test Date: 2023-05-31 Test Time: 08:16:16 Wholesale Account Executive: LEEANNA MEASUREMENT RESULTS: Intervals: Rate: 78 CO: 184 QRSD: 90 QT: 362 QTc: 412 [place]: P: 28 CO: 184 QRS: -6 T: 36 INTERPRETIVE STATEMENTS: Normal sinus rhythm Normal ECG Compared to ECG 05/26/2023 07:43:55 Atrial fibrillation no longer present Electronically Signed On 06-01-23 17:21:18 VACUUM FRAME OPERATOR by Anthony Schwarz
== END 2023-05-31 09:44 | disposition home or self-care (01) ==
LOC: ER 08:04
DX: R00.2 Palpitations (principal); I48.91 Unspecified atrial fibrillation; I10 Essential (primary) hypertension; F41.9 Anxiety disorder, unspecified
CPT/HCPCS: 36415; 71045; 80048; 85025; 93005; 99285

== ENCOUNTER 2023-08-17 16:05 | Observation (INO) | payer OTHER, BC ==
[2023-08-17 17:02] LABS: Absolute Lymphocytes (CBC) 0.8 K/uL (0.7-4.9); Hematocrit 37.3 % (39.6-49.0); Lymphocytes % 16.1 % (15.3-44.8); MCV 91.9 fL (80-100); MPV 7.8 fL (7.6-11.3); Platelets 220 thou/uL (152-406); RBC Red Blood Cell Count 4.06 M/uL (4.33-5.43)
[2023-08-17 17:04] LABS: Protime INR 1.08
[2023-08-17 17:21] LABS: Albumin 3.9 g/dL (3.4-5.0); Bilirubin Direct 0.2 mg/dL (0-0.2); Bilirubin Indirect, Calculated 0.4 mg/dL (0.2-0.8); Bilirubin Total 0.6 mg/dL (0.2-1.0); Magnesium 2.1 mg/dL (1.6-2.4); Potassium 4.1 mEq/L (3.5-5.1); Protein, Total 7.1 g/dL (6.4-8.2); Troponin High Sensitivity 5.5 pg/mL (<58.9)
--- NOTE | 2023-08-17 17:30 | RAD REPORT ---
EXAM DESCRIPTION: Tiffany Single View08/17/2023 5:06 pm CLINICAL HISTORY: sob COMPARISON: 2022 FINDINGS: The lungs appear clear of acute infiltrate. The heart is normal size IMPRESSION: No acute abnormalities displayed
--- NOTE | 2023-08-17 17:46 | RAD REPORT ---
EXAM DESCRIPTION: USExtrem Venous W Compress Bil08/17/2023 5:34 pm CLINICAL HISTORY: Leg swelling COMPARISON: none FINDINGS: The common femoral, superficial femoral, greater saphenous, popliteal and posterior tibial veins bilaterally are compressible and demonstrate augmentation. Doppler demonstrates good flow. Grayscale, color and spectral analysis performed on all vessels IMPRESSION: No evidence of deep venous thrombosis involving either lower extremity.
[2023-08-17] MEDS ORDERED: LORazepam 2 MG/ML VIAL ONE (17:58)
--- NOTE | 2023-08-17 18:35 | EDPHYS ---
Physician Documentation [facility] Name: Madi Tiwari III Age: 72 yrs Sex: Male : 1950 Arrival Date: 08/17/2023 Time: 16:05 Bed 8 Private MD: ED Physician John Soriano HPI: 08/17 18:32 This 72 yrs old Male presents to ER via Wheelchair with complaints of Lethargic, Sent kb by Chong. 18:32 Patient is a 72-year-old male who was sent in from Dr. Schwarz's office for shortness of kb breath. Patient states he has had shortness of breath that has been getting worse since May. Reports lower extremity edema that started in May as well and has been progressively getting worse. States he was told that he had lymphedema and that was the cause of the swelling. Reports shortness of breath is worse on exertion.. Historical: - Allergies: 16:22 No Known Allergies; bp - PMHx: 16:22 Anemia; Hypothyroidism; neuropathy; Hypertension; osteoarthristis; Crohn's; Atrial Fib; bp Anxiety; - PSHx: 16:22 Colon; chest; bp - Immunization history:: Adult Immunizations up to date. - Social history:: Smoking status: Patient denies any tobacco usage or history of. ROS: 18:26 Constitutional: Negative for fever, chills, and weight loss, kb 18:26 Cardiovascular: Positive for chest pain, edema, 18:26 Respiratory: Positive for dyspnea on exertion, shortness of breath, 18:26 All other systems are negative, Exam: 18:27 Constitutional: This is a well developed, well nourished patient who is awake, alert, kb and in no acute distress. Head/Face: Normocephalic, atraumatic. ENT: Moist Mucous membranes Cardiovascular: Regular rate Respiratory: Respirations even and unlabored. No increased work of breathing. Talking in full sentences Abdomen/GI: Soft, non-tender. No distention Skin: Warm, dry with normal turgor. Normal color. Neuro: Awake and alert, GCS 15, oriented to person, place, time, and situation. Moves all extremities. Normal gait. 18:27 Musculoskeletal/extremity: 3+ pitting edema to bilateral lower extremities. Vital Signs: 16:21 BP 159 / 76; Pulse 81; Resp 16; Temp 98; Pulse Ox 100% ; Weight 86.18 kg; Height 5 ft. bp 0 in. ; 16:50 BP 152 / 63; Pulse 72; Resp 20 S; Pulse Ox 100% on R/A; kc6 18:02 BP 136 / 60; Pulse 72; Resp 19 S; Pulse Ox 100% on R/A; kc6 19:09 BP 128 / 58; Pulse 65; Resp 17 S; Pulse Ox 100% on R/A; ha1 21:16 BP 126 / 49; Pulse 65; Resp 17 S; Pulse Ox 97% on R/A; ha1 16:21 Body Mass Index 37.11 (86.18 kg, 152.4 cm) bp [place] Coma Score: 21:16 Eye Response: spontaneous(4). Motor Response: obeys commands(6). Verbal Response: rv oriented(5). Total: 15. MDM: 16:27 Patient medically screened. kb 18:28 Data reviewed: vital signs, nurses notes. kb 18:31 Differential diagnosis: Anxiety Reaction Myocardial Infarction pulmonary edema. kb Consideration of Admission/Observation Patient was admitted/placed on observation. Escalation of care including admission/observation considered. Management of patient was discussed with the following: Hospitalist: Dr Sabillon. Counseling: I had a detailed discussion with the patient and/or guardian regarding the historical points, exam findings, and any diagnostic results supporting the discharge/admit diagnosis, lab results, radiology results, the need for further work-up and treatment in the hospital. 08/17 16:37 Order name: Basic Metabolic Panel; Complete Time: 17:23 kb 08/17 16:37 Order name: CBC with Diff; Complete Time: 17:09 kb 08/17 16:37 Order name: LFT's; Complete Time: 17:23 kb 08/17 16:37 Order name: Magnesium; Complete Time: 17:23 kb 08/17 16:37 Order name: NT PRO-BNP; Complete Time: 17:23 kb 08/17 16:37 Order name: PT-INR; Complete Time: 17:09 kb 08/17 16:37 Order name: Troponin HS; Complete Time: 17:23 kb 08/17 20:04 Order name: Urinalysis w/ reflexes [facility] 08/17 20:05 Order name: Lipid Profile [facility] 08/17 20:05 Order name: Lipid Profile [facility] 08/17 20:05 Order name: Troponin High Sensitivity [facility] 08/17 20:05 Order name: Troponin High Sensitivity; Complete Time: 21:33 [facility] 08/17 20:05 Order name: Troponin High Sensitivity [facility] 08/17 20:05 Order name: Troponin High Sensitivity [facility] 08/17 16:37 Order name: XRAY Chest (1 view); Complete Time: 17:31 kb 08/17 16:37 Order name: US Extremity Venous W Compression Teja; Complete Time: 17:48 kb 08/17 16:37 Order name: EKG; Complete Time: 16:37 kb 08/17 20:05 Order name: CONS Physician Consult [facility] 08/17 16:37 Order name: Cardiac monitoring; Complete Time: 16:48 kb 08/17 16:37 Order name: EKG - Nurse/Tech; Complete Time: 16:48 kb 08/17 16:37 Order name: IV Saline Lock; Complete Time: 16:52 kb 08/17 16:37 Order name: Labs collected and sent; Complete Time: 16:52 kb 08/17 16:37 Order name: O2 Per Protocol; Complete Time: 16:48 kb 08/17 16:37 Order name: O2 Sat Monitoring; Complete Time: 16:48 kb Administered Medications: 18:01 Drug: Ativan IVP 1 mg IVP once Route: IVP; Site: left antecubital; kc6 Disposition Summary: 08/17/23 18:35 Hospitalization Ordered Notes: Hospitalization Status: Observation kb Provider: Micky Sabillon Location: Telemetry/MedSurg (observation) kb Condition: Stable kb Problem: new kb Symptoms: are unchanged kb Bed/Room Type: Standard Room Assignment: 225(08/17/23 21:04) ap3 Diagnosis - Dyspnea kb - Chest pain, unspecified kb Forms: - Medication Reconciliation Form kb - SBAR form kb - Leadership Thank You Letter kb Addendum: 08/19/2023 08:33 Co-signature as Attending Physician, John Soriano MD I reviewed the patient's care r n provided by the Advanced Practice Provider and agree with the diagnosis and treatment plan. Signatures: Dispatcher [employer] [facility] Prema Blackwell, PIT CLERK-C PIT CLERK-Ckb John Soriano MD MD rn Peltier, Brian, RN RN bp Prokisch, Amanda, RN RN ap3 Georgette Sosa RN RN kc6 Corrections: (The following items were deleted from the chart) 08/17 21:04 18:35 kb ap3
--- NOTE | 2023-08-17 18:35 | ER ---
Nurse's Notes [facility] [place] Name: Madi Tiwari III Age: 72 yrs Sex: Male : 1950 Arrival Date: 08/17/2023 Time: 16:05 Bed 8 Private MD: Diagnosis: Dyspnea;Chest pain, unspecified Presentation: 08/17 16:21 Chief complaint: Patient states: AT [facility]S OFFICE FOR AFIB F/U, SENT TO ER "HE DIDN'T bp LIKE THE WAY I LOOKED. MY ANXIETY'S KICKING IN.". Coronavirus screen: At this time, the client does not indicate any symptoms associated with coronavirus-19. Ebola Screen: No symptoms or risks identified at this time. Initial Sepsis Screen: Does the patient meet any 2 criteria? No. Patient's initial sepsis screen is negative. Does the patient have a suspected source of infection? No. Patient's initial sepsis screen is negative. Risk Assessment: Do you want to hurt yourself or someone else? Patient reports no desire to harm self or others. Onset of symptoms is unknown. 16:21 Method Of Arrival: Wheelchair bp 16:21 Acuity: ONDINA 3 bp Triage Assessment: 16:22 General: Appears distressed, Behavior is cooperative, appropriate for age, agitated, bp anxious. Pain: Denies pain. Historical: - Allergies: 16:22 No Known Allergies; bp - PMHx: 16:22 Anemia; Hypothyroidism; neuropathy; Hypertension; osteoarthristis; Crohn's; Atrial Fib; bp Anxiety; - PSHx: 16:22 Colon; chest; bp - Immunization history:: Adult Immunizations up to date. - Social history:: Smoking status: Patient denies any tobacco usage or history of. Screenin:48 [facility] ED Fall Risk Assessment (Adult) History of falling in the last 3 months, kc6 including since admission No falls in past 3 months (0 pts) Confusion or Disorientation No (0 pts) Intoxicated or Sedated No (0 pts) Impaired Gait No (0 pts) Mobility Assist Device Used No (0 pt) Altered Elimination No (0 pt) Score/Fall Risk Level 0 - 2 = Low Risk. Abuse screen: Denies threats or abuse. Denies injuries from another. Nutritional screening: No deficits noted. Tuberculosis screening: No symptoms or risk factors identified. Assessment: 16:49 General: Appears in no apparent distress. uncomfortable, well groomed, well developed, kc6 Behavior is cooperative, anxious, restless. Pain: Complains of pain in chest. Neuro: Level of Consciousness is awake, alert, obeys commands, Oriented to person, place, time, situation, Appropriate for age. Cardiovascular: Reports chest pain, Heart tones S1 S2 present Capillary refill < 3 seconds Edema is 4+ to left midcalf, left ankle, right midcalf and right ankle pitting to left midcalf, left ankle, right midcalf and right ankle Rhythm is sinus rhythm. Respiratory: Reports shortness of breath Airway is patent Trachea midline Respiratory effort is even, unlabored, Respiratory pattern is regular, symmetrical. GI: No signs and/or symptoms were reported involving the gastrointestinal system. : No signs and/or symptoms were reported regarding the genitourinary system. EENT: No signs and/or symptoms were reported regarding the EENT system. Derm: No signs and/or symptoms reported regarding the dermatologic system. Skin is intact, is healthy with good turgor, Skin is pink, warm \\T\\ dry. Musculoskeletal: No signs and/or symptoms reported regarding the musculoskeletal system. Circulation, motion, and sensation intact. Capillary refill < 3 seconds, Range of motion: intact in all extremities. 17:49 Reassessment: Patient appears in no apparent distress at this time. No changes from kc6 previously documented assessment. Patient and/or family updated on plan of care and expected duration. Pain level reassessed. Patient is alert, oriented x 3, equal unlabored respirations, skin warm/dry/pink. 19:15 General: Appears comfortable, Behavior is calm, cooperative. Pain: Denies pain. Neuro: ha1 Level of Consciousness is awake, alert, obeys commands, Oriented to person, place, time, situation, Reports pt. states " early I felt anxious but I feel better now.". Respiratory: Airway is patent Respiratory effort is even, unlabored, Respiratory pattern is regular, symmetrical. GI: No signs and/or symptoms were reported involving the gastrointestinal system. Derm: Skin is pink, warm \\T\\ dry. Musculoskeletal: Circulation, motion, and sensation intact. Range of motion: intact in all extremities. 20:15 Reassessment: Patient and/or family updated on plan of care and expected duration. Pain ha1 level reassessed. Patient is alert, oriented x 3, equal unlabored respirations, skin warm/dry/pink. Patient denies pain at this time. 21:15 Reassessment: Patient and/or family updated on plan of care and expected duration. Pain ha1 level reassessed. Patient is alert, oriented x 3, equal unlabored respirations, skin warm/dry/pink. REPORT GIVEN TO SHERLYN OSBORNE. Vital Signs: 16:21 BP 159 / 76; Pulse 81; Resp 16; Temp 98; Pulse Ox 100% ; Weight 86.18 kg; Height 5 ft. bp 0 in. ; 16:50 BP 152 / 63; Pulse 72; Resp 20 S; Pulse Ox 100% on R/A; kc6 18:02 BP 136 / 60; Pulse 72; Resp 19 S; Pulse Ox 100% on R/A; kc6 19:09 BP 128 / 58; Pulse 65; Resp 17 S; Pulse Ox 100% on R/A; ha1 21:16 BP 126 / 49; Pulse 65; Resp 17 S; Pulse Ox 97% on R/A; ha1 16:21 Body Mass Index 37.11 (86.18 kg, 152.4 cm) bp Lennox Coma Score: 21:16 Eye Response: spontaneous(4). Motor Response: obeys commands(6). Verbal Response: rv oriented(5). Total: 15. ED Course: 16:06 Patient arrived in ED. rg4 16:22 Triage completed. bp 16:22 Arm band placed on. bp 16:26 Patient placed in an exam room, on a stretcher. ll1 16:27 [facility] kb 16:27 John Soriano MD is Attending Physician. kb 16:34 Georgette Sosa, SHERLYN is Primary Nurse. kc6 16:48 Patient has correct armband on for positive identification. Placed in gown. Bed in low kc6 position. Call light in reach. Side rails up X2. Client placed on continuous cardiac and pulse oximetry monitoring. NIBP monitoring applied. satellite project site monitor on. 16:48 Patient maintains SpO2 saturation greater than 95% on room air. kc6 16:52 Inserted saline lock: 20 gauge in left antecubital area, using aseptic technique. Blood kc6 collected. 17:08 XRAY Chest (1 view) In Process Unspecified. EDMS 17:36 US Extremity Venous W Compression Teja In Process Unspecified. EDMS 18:35 Micky Sabillon MD is Hospitalizing Provider. kb 20:57 Primary Nurse role handed off by Georgette Sosa RN vk 21:42 Mynor Goodman, RN is Primary Nurse. rv 21:42 No provider procedures requiring assistance completed. Patient admitted, IV remains in rv place. Administered Medications: 18:01 Drug: Ativan IVP 1 mg IVP once Route: IVP; Site: left antecubital; kc6 Medication: 21:19 VIS not applicable for this client. ha1 Outcome: 18:35 Decision to Hospitalize by Provider. kb 21:42 Admitted to Med/surg accompanied by nurse, via wheelchair, room 225, with chart, Report rv called to medical illustrator 21:42 Condition: good 21:42 Instructed on the need for admit, 21:42 Patient left the ED. rv Signatures: Dispatcher [employer] EDMS Prema Blackwell, R D MANAGER-C R D MANAGER-Isabelle Hutson rg4 Hiro Bach, RN RN Mynor Goodman, RN RN Silvia Santiago RN RN ll1 Melody Marks RN RN ha1 Georgette Sosa, RN RN kc6 Rajni Ovalle
[2023-08-17] MEDS ORDERED: NA CHLORIDE 0.9% 1,000 ML IV SCH (20:00)
--- NOTE | 2023-08-17 20:11 | P.HP ---
Certification for Inpatient Patient admitted to: Observation With expected LOS: <2 Midnights Practitioner: I am a practitioner with admitting privileges, knowledge of patient current condition, hospital course, and medical plan of care. Services: Services provided to patient in accordance with Admission requirements found in Title 42 Section 412.3 of the Code of Federal Regulations Patient History Date of Service: 08/18/23 Reason for admission: Chest discomfort, shortness of breath. History of Present Illness: 72-year-old female male patient with medical history significant for hypertension, hypothyroidism, history of cardiac arrhythmia on antiarrhythmic drug was evaluated at the chemical dependency nurse office for episode of lethargy and worsening shortness of breath with leg swelling. It depicted his leg swelling is due to lymphedema. He was sent to the ED because the chemical dependency nurse was worried about his cardiac health and wanted to investigate further. No report of chest pain, fever, chills, cough productive of sputum given. Chest x-ray done in the ED was clear of acute infiltrate and he also had lab studies that showed no elevated troponin or major electrolyte abnormality. Allergies No Known Allergies Allergy (Unverified 08/09/16 11:16) Home Medications: Aspirin 81 mg PO DAILY 08/17/23 Calcium Carbonate/Vitamin D3 [Caltrate 600 Plus D3 Tablet] 1 tab PO DAILY 08/17/23 Docusate [Colace Cap] 200 mg PO DAILY 08/17/23 Levothyroxine [Synthroid] 88 mcg PO [id number] 08/17/23 Losartan Potassium [Cozaar] 25 mg PO BID 08/17/23 Omeprazole 20 mg PO DAILY 08/17/23 Polyethylene Glycol 3350 [Miralax] 17 gm PO DAILY 08/17/23 Propafenone HCl [Propafenone HCl ER] 225 mg PO Q12HR 08/17/23 Spironolactone [Aldactone*] 25 mg PO DAILY 08/17/23 clonazePAM [Klonopin] 0.5 mg PO BID 08/17/23 - Past Medical/Surgical History Diabetic: No - Social History Alcohol use: No CD- Drugs: No Caffeine use: Yes Review of Systems General: Weakness, Malaise Eyes: Unremarkable ENT: Unremarkable Respiratory: Unremarkable Cardiovascular: Unremarkable Gastrointestinal: Unremarkable Genitourinary: Unremarkable Musculoskeletal: Unremarkable Integumentary: Unremarkable Neurological: Unremarkable Lymphatics: Unremarkable Physical Examination - Physical Exam General: Alert, Oriented x3 HEENT: Atraumatic Neck: Supple Respiratory: Normal air movement Cardiovascular: Regular rate/rhythm, Normal S1 S2 Gastrointestinal: Soft and benign Neurological: Normal speech, Normal strength at 5/5 x4 extr - Studies Laboratory Data (last 24 hrs) 08/17/23 08/17/23 08/17/23 16:50 16:50 16:50 WBC 5.20 Hgb 13.0 L Hct 37.3 L Plt Count 220 PT 11.9 INR 1.08 Sodium 136 Potassium 4.1 BUN 17 Creatinine 0.95 Glucose 97 Magnesium 2.1 Total Bilirubin 0.6 AST 15 ALT 23 Alkaline Phosphatase 102 Assessment and Plan - Plan Chest pain/suspicion for ACS: Clinical presentation is concerning. R And D Lab Technician has evaluated patient. Will have patient on telemetry, continue statin therapy and aspirin. Will trend troponin x 3. Cardiology to evaluate for further recommendation as per stress test/left heart cath. Hypertension: We will monitor vital signs per unit protocol and continue antihypertensive medications. History of cardiac arrhythmia: We will continue antiarrhythmic drugs. Hypothyroidism: We will continue levothyroxine dose. Hyperlipidemia: Continue statin therapy. Lipid panel to be obtained to assess adequacy of therapy. Prophylaxis: Lovenox for DVT prophylaxis. CODE STATUS: Full code. Disposition: We will workup his suspected ACS and to be discharged when deemed clinically stable - Advance Directives Does patient have a Living Will: No Does patient have a Durable POA for Healthcare: No
[2023-08-17 22:28] VITALS: BMI 25.1
[2023-08-18 00:31] VITALS: O2SAT 97
[2023-08-18 03:13] LABS: Urine Bilirubin NEGATIVE (Negative); Urine Blood Negative (Negative); Urine Clarity Clear (Clear); Urine Color Light-Yellow (Yellow); Urine Glucose NEGATIVE (Negative); Urine Protein NEGATIVE (Negative); Urine Urobilinogen Normal (Normal)
[2023-08-18] MEDS ORDERED: LEVOTHYROXINE SOD 0.088 MG TAB PO SCH (06:00)
[2023-08-18 06:17] LABS: Troponin High Sensitivity 6.4 pg/mL (<58.9)
[2023-08-18] MEDS ORDERED: PANTOPRAZOLE 40MG TABLET PO SCH (06:30)
[2023-08-18] MEDS ORDERED: LOSARTAN POTASSIUM 50 MG TABLET PO SCH (09:00)
[2023-08-18] MEDS ORDERED: PROPAFENONE 225 MG CAP PO SCH (09:00)
[2023-08-18] MEDS ORDERED: DOCUSATE NA 100 MG CAP PO SCH (09:00)
[2023-08-18] MEDS ORDERED: SPIRONOLACTONE 25 MG TABLET PO SCH (09:00)
[2023-08-18] MEDS ORDERED: CALCIUM CARB 500MG/VIT D 200 IU TAB PO SCH (09:00)
[2023-08-18] MEDS ORDERED: ASPIRIN 81 MG CHEWABLE TABLET PO SCH (09:00)
[2023-08-18] MEDS ORDERED: clonazePAM 0.5 MG TAB PO SCH (09:00)
[2023-08-18] MEDS ORDERED: POLYETHYL GLY 3350 17 GM/DOSE PO SCH (09:00)
--- NOTE | 2023-08-18 11:42 | P.PN ---
Subjective Date of Service: 08/18/23 Chief Complaint: Chest discomfort, shortness of breath. Subjective: No new changes, Improving, New changes, Doing well Patient is alert and oriented x 3 Resting in the bed NAD Denies any pain or shortness of breath Vital stable <Bry Pozo - Last Filed: 08/18/23 11:43> Date of Service: 08/19/23 <Mendoza Velazquez Axel - Last Filed: 08/19/23 18:11> Review of Systems 10-point ROS is otherwise unremarkable <Bry Pozo - Last Filed: 08/18/23 11:43> Physical Examination - Vital Signs Temperature: 97.9 F Blood Pressure: 120/60 Pulse: 61 Respirations: 16 Pulse Ox (%): 98 - Physical Exam General: Alert, In no apparent distress, Oriented x3 HEENT: Atraumatic, Normocephalic Neck: Supple, 2+ carotid pulse no bruit Respiratory: Clear to auscultation bilaterally, Normal air movement Cardiovascular: No edema, Normal pulses, Regular rate/rhythm Capillary refill: <2 Seconds Gastrointestinal: Normal bowel sounds, Soft and benign, Non-distended Musculoskeletal: No erythema, Swelling, Other (Bilateral lower extremity edema 3+ pitting) Integumentary: No rashes, No breakdown, No significant lesion Neurological: Normal speech, Normal tone, Normal affect - Studies Laboratory Data (last 24 hrs) 08/17/23 08/17/23 08/17/23 16:50 16:50 16:50 WBC 5.20 Hgb 13.0 L Hct 37.3 L Plt Count 220 PT 11.9 INR 1.08 Sodium 136 Potassium 4.1 BUN 17 Creatinine 0.95 Glucose 97 Magnesium 2.1 Total Bilirubin 0.6 AST 15 ALT 23 Alkaline Phosphatase 102 <Bry Pozo - Last Filed: 08/18/23 11:43> Assessment And Plan - Plan Chest pain/suspicion for ACS: -Improving, no CP at this time. Jacquard Loom Weaver has evaluated patient. Will have patient on telemetry, continue statin therapy and aspirin. Negative troponin x 3. Cardiology to evaluate for further recommendation as per stress test/left heart cath. Hypertension: We will monitor vital signs per unit protocol and continue antihypertensive medications. History of cardiac arrhythmia: We will continue antiarrhythmic drugs. Hypothyroidism: We will continue levothyroxine dose. Hyperlipidemia: Continue statin therapy. Lipid panel to be obtained to assess adequacy of therapy. Prophylaxis: Lovenox for DVT prophylaxis. CODE STATUS: Full code. Disposition: We will workup his suspected ACS and to be discharged when deemed clinically stable Discharge Plan: Home Plan to discharge in: 24 Hours - Code Status/Comfort Care Code Status Assessed: Yes (Full code) Code Status: Full Code (Full code) Physician Review: Patient Assessed, Agree with Above Assessment and Plan Critical Care: No Time Spent Managing PTS Care (In Minutes): 35 (Minutes) <Bry Pozo - Last Filed: 08/18/23 11:43> - Plan Pt seen and examined. I agree with the note by the TRANSFER ENGINEER. Cardiology cleared him to be discharged. Pt was advised to follow up with cardiology in clinic. <Mendoza Velazquez - Last Filed: 08/19/23 18:11>
--- NOTE | 2023-08-18 13:23 | EKG ---
Test Date: 2023-08-17 Test Time: 16:44:53 Elementary Ell Teacher: LEEANNA MEASUREMENT RESULTS: Intervals: Rate: 72 MO: 200 QRSD: 106 QT: 380 QTc: 416 [place]: P: 78 MO: 200 QRS: -28 T: 54 INTERPRETIVE STATEMENTS: Normal sinus rhythm Normal ECG Compared to ECG 05/31/2023 08:16:16 No significant changes Electronically Signed On 08-18-23 13:21:42 SPORTS INSTRUCTOR by Anthony Schwarz
[2023-08-18 16:49] VITALS: BP 117/57; TEMP 97.6
--- NOTE | 2023-08-18 17:01 | P.DS ---
Admission Date: 08/17/23 Discharge Date: 08/18/23 Reason for Admission: Chest discomfort, shortness of breath. - Problems (1) Chest pain Status: Acute (2) Lower extremity edema Status: Acute Brief History of Present Illness: History of Present Illness: 72-year-old female male patient with medical history significant for hypertension, hypothyroidism, history of cardiac arrhythmia on antiarrhythmic drug was evaluated at the gymnastics coach office for episode of lethargy and worsening shortness of breath with leg swelling. It depicted his leg swelling is due to lymphedema. He was sent to the ED because the gymnastics coach was worried about his cardiac health and wanted to investigate further. No report of chest pain, fever, chills, cough productive of sputum given. Chest x-ray done in the ED was clear of acute infiltrate and he also had lab studies that showed no elevated troponin or major electrolyte abnormality. Hospital Course: Hospital course Mr. Tiwari is a pleasant 72-year-old male patient with a past medical history significant for hypertension, hypothyroidism, chron's disease, history of cardiac arrhythmias on antiarrhythmic drug who was admitted to the [facility] on 08/17/2023 for lethargy and worsening of shortness of breath with increased swelling on the lower extremities. Patient was admitted to the hospital. Seen by gymnastics coach. On 08/18/2023, Patient was seen on rounds and deemed medically stable for discharge. Patient was discharged with instructions to schedule follow-up appointments with PCP in 3 to 5 days and gymnastics coach in 2 weeks. The patient was given the opportunity to ask questions and reported no further questions. Furthermore, all questions were answered to the best of my ability. <Bry Pozo - Last Filed: 08/18/23 17:02> Admission Date: 08/17/23 Discharge Date: 08/19/23 Hospital Course: Pt seen and examined. I agree with the note by the SHIPPING CLERK PACKING. Follow up with Cardiology in clinic. Ok to discharge pt. <Mendoza Velazquez - Last Filed: 08/19/23 18:12> Disposition: ROUTINE DISCHARGE Discharge Condition: GOOD Vital Signs/Physical Exam: Temp Pulse Resp BP Pulse Ox 97.6 F 58 16 117/57 L 100 08/18/23 16:00 08/18/23 16:00 08/18/23 16:00 08/18/23 16:00 08/18/23 16:00 General: Alert HEENT: Atraumatic, Normocephalic Neck: Supple, 2+ carotid pulse no bruit Respiratory: Clear to auscultation bilaterally, Normal air movement Cardiovascular: Normal pulses, Regular rate/rhythm, Normal S1 S2, Edema Capillary refill: <2 Seconds Gastrointestinal: Normal bowel sounds, Soft and benign, Non-distended Musculoskeletal: No clubbing, No erythema, Swelling Integumentary: No rashes, No breakdown Neurological: Normal speech, Normal tone Laboratory Data at Discharge: WBC 5.20 thou/uL (4.3-10.9) 08/17/23 16:50 Hgb 13.0 g/dL (13.6-17.9) L 08/17/23 16:50 Hct 37.3 % (39.6-49.0) L 08/17/23 16:50 Plt Count 220 thou/uL (152-406) 08/17/23 16:50 PT 11.9 SECONDS (9.5-12.5) 08/17/23 16:50 INR 1.08 08/17/23 16:50 Sodium 136 mEq/L (136-145) 08/17/23 16:50 Potassium 4.1 mEq/L (3.5-5.1) 08/17/23 16:50 BUN 17 mg/dL (7-18) 08/17/23 16:50 Creatinine 0.95 mg/dL (0.70-1.30) 08/17/23 16:50 Glucose 97 mg/dL (74-106) 08/17/23 16:50 Magnesium 2.1 mg/dL (1.6-2.4) 08/17/23 16:50 Total Bilirubin 0.6 mg/dL (0.2-1.0) 08/17/23 16:50 AST 15 U/L (15-37) 08/17/23 16:50 ALT 23 U/L (16-61) 08/17/23 16:50 Alkaline Phosphatase 102 U/L (45-117) 08/17/23 16:50 Triglycerides 78 mg/dL (<150) 08/18/23 05:46 Cholesterol 95 mg/dL (<200) 08/18/23 05:46 HDL Cholesterol 30 mg/dL (40-60) L 08/18/23 05:46 Cholesterol/HDL Ratio 3.17 08/18/23 05:46 <Bry Pozo - Last Filed: 08/18/23 17:02> Vital Signs/Physical Exam: Temp Pulse Resp BP Pulse Ox 97.6 F 58 16 117/57 L 100 08/18/23 16:00 08/18/23 16:00 08/18/23 16:00 08/18/23 16:00 08/18/23 16:00 Laboratory Data at Discharge: WBC 5.20 thou/uL (4.3-10.9) 08/17/23 16:50 Hgb 13.0 g/dL (13.6-17.9) L 08/17/23 16:50 Hct 37.3 % (39.6-49.0) L 08/17/23 16:50 Plt Count 220 thou/uL (152-406) 08/17/23 16:50 PT 11.9 SECONDS (9.5-12.5) 08/17/23 16:50 INR 1.08 08/17/23 16:50 Sodium 136 mEq/L (136-145) 08/17/23 16:50 Potassium 4.1 mEq/L (3.5-5.1) 08/17/23 16:50 BUN 17 mg/dL (7-18) 08/17/23 16:50 Creatinine 0.95 mg/dL (0.70-1.30) 08/17/23 16:50 Glucose 97 mg/dL (74-106) 08/17/23 16:50 Magnesium 2.1 mg/dL (1.6-2.4) 08/17/23 16:50 Total Bilirubin 0.6 mg/dL (0.2-1.0) 08/17/23 16:50 AST 15 U/L (15-37) 08/17/23 16:50 ALT 23 U/L (16-61) 08/17/23 16:50 Alkaline Phosphatase 102 U/L (45-117) 08/17/23 16:50 Triglycerides 78 mg/dL (<150) 08/18/23 05:46 Cholesterol 95 mg/dL (<200) 08/18/23 05:46 HDL Cholesterol 30 mg/dL (40-60) L 08/18/23 05:46 Cholesterol/HDL Ratio 3.17 08/18/23 05:46 <Mendoza Velazquez - Last Filed: 08/19/23 18:12> Diet: Low sodium Activity: Ad yoni Time spent managing pt's care (in minutes): 55 (minutes) <Bry Pozo - Last Filed: 08/18/23 17:02> <Mendoza Velazquez - Last Filed: 08/19/23 18:12> Home Medications: Aspirin 81 mg PO DAILY 08/17/23 Calcium Carbonate/Vitamin D3 [Caltrate 600 Plus D3 Tablet] 1 tab PO DAILY 08/17/23 Docusate [Colace Cap*] 200 mg PO DAILY 08/17/23 Levothyroxine [Synthroid*] 88 mcg PO [id number] 08/17/23 Losartan Potassium [Cozaar] 25 mg PO BID 08/17/23 Omeprazole 20 mg PO DAILY 08/17/23 Polyethylene Glycol 3350 [Miralax] 17 gm PO DAILY 08/17/23 Propafenone HCl [Propafenone HCl ER] 225 mg PO Q12HR 08/17/23 Spironolactone [Aldactone*] 25 mg PO DAILY 08/17/23 clonazePAM [Klonopin] 0.5 mg PO BID 08/17/23 Physician Discharge Instructions: Mr. Tiwari is a pleasant 72-year-old male patient with a past medical history significant for hypertension, hypothyroidism, chron's disease, history of cardiac arrhythmias on antiarrhythmic drug who was admitted to the [facility] on 08/17/2023 for lethargy and worsening of shortness of breath with increased swelling on the lower extremities. Patient was admitted to the hospital. Seen by gymnastics coach. On 08/18/2023, was seen on rounds and deemed medically stable for discharge. Patient was discharged with instructions to schedule follow-up appointments with PCP in 3 to 5 days and gymnastics coach in 2 weeks. The patient and family members were given the opportunity to ask questions and reported no further questions. Furthermore, all questions were answered to the best of my ability. 1. Please call and schedule a follow-up appointment with your PCP in 3-5 days 2. Please call and schedule a follow-up appointment with gymnastics coach in 2 weeks - Please follow-up with your PCP for medication refills/adjustments Followup: Anthony Schwarz MD [ACTIVE - CAN ADMIT] - 1-2 Weeks Solomon Joshua MD [Primary Care Provider] - (F/U in 3-5 days)
--- NOTE | 2023-08-18 17:36 | CON ---
Date of Consultation: 08/18/2023 Reason For Consultation: Chest discomfort. History Of Present Illness: 72-year-old male with past medical history of hypertension, hypothyroidi sm, who was evaluated at my office yesterday. Was having chest pain and along with shortness of niall th was generally weak, but he was having also panic attacks, sent to the emergency room and was admit ita to rule out myocardial infarction. Saw him at the bedside and he has no symptoms and he wants to go home. Past Medical History: As outlined above in the HPI. Medications: Refer to reconciliation sheet for detailed list. Allergies: NO KNOWN DRUG ALLERGIES. Family History: No premature coronary artery disease or cancer. Social History: Does not smoke or drink. Does not use any drugs. Review of Systems: All systems reviewed and they were negative except as mentioned in the HPI. Physical Examination: Vital Signs: Reviewed. Head and Neck: Pupils are equal, reactive to light. Intact eye movements. No JVD. No cervical lym phadenopathy. Neck is supple. Thyroid is not enlarged. Lungs: Clear to auscultation bilaterally. No rhonchi, wheezing, or crackles. No accessory muscle u se. Heart: Regular rate and rhythm. No extra sounds. Abdomen: Soft, nontender. Bowel sounds positive. No organomegaly. No masses or hernia. No rigidi ty or rebound. Extremities: No edema, clubbing, or cyanosis. Intact pulses. Skin: No rash or nodule. Neurologic: Alert, awake, oriented x3. No acute focal deficits appreciated. Lymph Nodes: No cervical or axillary lymphadenopathy. Investigations: Troponins are negative. BUN 17, creatinine 0.95, and hemoglobin is 13. Assessment And Recommendations: 1.Chest pain, atypical. Cardiac enzymes are negative and patient is pain free. He can be released and follow up as an outpatient. 2.Hypertension. Blood pressure is controlled. Continue current therapy. From Cardiology standpoint, patient can be released. SR/MODL Voice ID: [id number] Report ID: [id number]
== END 2023-08-18 17:41 | disposition home or self-care (01) ==
LOC: ER 16:05 → ERHOLD 19:49 → 2ND 21:20
PROVIDERS: ADMIT Internal Medicine Nephrology; ATTEND Hospitalist
DX: R07.9 Chest pain, unspecified (principal); R06.00 Dyspnea, unspecified; I10 Essential (primary) hypertension; E03.9 Hypothyroidism, unspecified; E78.5 Hyperlipidemia, unspecified; I49.9 Cardiac arrhythmia, unspecified; R60.0 Localized edema; K50.90 Crohn's disease, unspecified, without complications
CPT/HCPCS: 93005; 85025; 80048; 36415; 83735; 85610; 80061; 80076; 81003; 84484 ×4; 83880; 71045; 93970; J7030; G0378

== ENCOUNTER 2024-06-15 10:22 | Emergency (ER) | payer OTHER, BC ==
[2024-06-15 10:55] LABS: Absolute Eosinophils 0.1 K/uL (0-0.5); Absolute Lymphocytes (CBC) 0.6 K/uL (0.7-4.9); Absolute Monocytes 0.5 K/uL (0.1-1.3); Absolute Neutrophil 3.1 K/uL (1.8-8.0); Basophils % 0.6 % (0-1.3); Hematocrit 34.8 % (39.6-49.0); Hemoglobin 11.6 g/dL (13.6-17.9); Lymphocytes % 14.7 % (15.3-44.8); MCH 32.4 pg (27.0-35.0); MCHC 33.5 g/dL (32.0-36.0); MCV 96.7 fL (80-100); MPV 8.2 fL (7.6-11.3); Monocytes % 10.5 % (3.3-12.3); Neutrophils % 71.2 % (41.7-73.7); Platelets 172 thou/uL (152-406); Red Cell Distribution Width 13.1 % (12.1-15.2)
[2024-06-15 11:11] LABS: AST/SGOT 16 U/L (15-37); Albumin 3.3 g/dL (3.4-5.0); Albumin/Globulin Ratio 1.1 (1.1-1.8); Alkaline Phosphatase 96 U/L (45-117); Anion Gap 7.2 mEq/L (5.0-15.0); BUN Blood Urea Nitrogen 11 mg/dL (7-18); Bicarbonate 30 mEq/L (21-32); Bilirubin Direct 0.2 mg/dL (0-0.2); Bilirubin Indirect, Calculated 0.4 mg/dL (0.2-0.8); Bilirubin Total 0.6 mg/dL (0.2-1.0); Glomerular Filtration Rate 94 ml/min (=/>90); Glucose Level 131 mg/dL (74-106); Magnesium 1.8 mg/dL (1.6-2.4); NT PRO-BNP 62 pg/mL (<125); Potassium 4.2 mEq/L (3.5-5.1); Protein, Total 6.3 g/dL (6.4-8.2); Sodium Level 136 mEq/L (136-145); Troponin High Sensitivity 5.4 pg/mL (<58.9)
[2024-06-15 11:22] LABS: ALT/SGPT < 14 U/L (16-61)
--- NOTE | 2024-06-15 11:26 | RAD REPORT ---
Procedure: Chest Single View HISTORY: Chest pain COMPARISON: July 2023 FINDINGS: The lungs appear clear of acute infiltrate. No significant pleural effusion noted. The heart is normal size. IMPRESSION: No acute abnormality is displayed.
--- NOTE | 2024-06-15 12:51 | EDPHYS ---
Physician Documentation [facility] Name: Madi Tiwari III Age: 73 yrs Sex: Male : 1950 Arrival Date: 06/15/2024 Time: 10:22 Bed 17 Private MD: ED Physician Sean Desouza HPI: 06/15 13:18 This 73 yrs old Male presents to ER via EMS with complaints of Chest Pain. rt 13:18 Patient presents to the ED with chest pain, palpitations starting this morning. Patient rt is having similar symptoms previously, is admitted to the hospital here in July, was told it was anxiety. Patient states that he took his losartan, Xanax prior to arrival which did improve his symptoms. Denies other acute complaints at this time, symptoms are moderate in severity, no other aggravating or alleviating factors.. Historical: - Allergies: 10:33 No Known Allergies; rs5 - PMHx: 10:33 Anxiety; Anemia; Atrial Fib; Crohn's; Hypertension; Hypothyroidism; neuropathy; rs5 osteoarthristis; - PSHx: 10:33 chest; Colon; rs5 - Immunization history:: Adult Immunizations up to date. - Infectious Disease History:: Denies. - Social history:: Smoking status: Patient denies any tobacco usage or history of. - Family history:: not pertinent. ROS: 13:18 Constitutional: Negative for fever, chills, and weight loss, Respiratory: Negative for rt shortness of breath, cough, wheezing, and pleuritic chest pain, Abdomen/GI: Negative for abdominal pain, nausea, vomiting, diarrhea, and constipation, MS/Extremity: Negative for injury and deformity, Skin: Negative for injury, rash, and discoloration, 13:18 Cardiovascular: Positive for chest pain, palpitations, Exam: 13:18 Constitutional: This is a well developed, well nourished patient who is awake, alert, rt and in no acute distress. Head/Face: Normocephalic, atraumatic. Chest/axilla: Normal chest wall appearance and motion. Nontender with no deformity. No lesions are appreciated. Cardiovascular: Regular rate and rhythm with a normal S1 and S2. No gallops, murmurs, or rubs. Normal PMI, no JVD. No pulse deficits. Respiratory: Lungs have equal breath sounds bilaterally, clear to auscultation and percussion. No rales, rhonchi or wheezes noted. No increased work of breathing, no retractions or nasal flaring. Abdomen/GI: Soft, non-tender, with normal bowel sounds. No distension or tympany. No guarding or rebound. No evidence of tenderness throughout. Skin: Warm, dry with normal turgor. Normal color with no rashes, no lesions, and no evidence of cellulitis. MS/ Extremity: Pulses equal, no cyanosis. Neurovascular intact. Full, normal range of motion. Neuro: Awake and alert, GCS 15, oriented to person, place, time, and situation. Cranial nerves II-XII grossly intact. Motor strength 5/5 in all extremities. Sensory grossly intact. Cerebellar exam normal. Normal gait. 13:18 ECG was reviewed by the Attending Physician. Vital Signs: 10:29 BP 143 / 64; Pulse 74; Resp 17; Temp 98(O); Pulse Ox 98% ; rs5 11:36 BP 119 / 53; Pulse 58; Resp 17; Pulse Ox 99% on R/A; rs5 13:15 BP 122 / 61; Pulse 66; Resp 16; Pulse Ox 98% on R/A; rs5 14:05 BP 125 / 64; Pulse 69; Resp 17; Pulse Ox 99% ; rs5 MDM: 10:30 Medical Screening Exam initiated rt 13:18 Differential diagnosis: Dysrhythmia, ACS, nonspecific chest pain. HEART Score: History: rt Moderately Suspicious (1), ECG: Normal (0), Age: > or = 65 years (2), Risk Factors: 1 or 2 risk factors (1), Troponin: < or = 1 x Normal Limit (0), Total Score = 4. Data reviewed: vital signs, nurses notes, lab test result(s), EKG, radiologic studies. Consideration of Admission/Observation Escalation of care including admission/observation considered. Had a long discussion with the patient. I did offer the patient admission for further restratification. Patient states that he wishes to go home. Patient has a second troponin which is only mildly elevated compared to the previous 1, likely within the margin of error of the assay. He has no acute ischemic changes on his EKG. Patient to follow-up with his arcade attendant as an outpatient. Will start patient on nitro, strict return precautions were discussed with the patient for worsening symptoms.. Independent interpretation of the following test(s) in the Emergency Department X-Ray: My interpretation is No pulmonary edema seen on my interpretation of x-ray images. Care significantly affected by the following chronic conditions: Hypertension. Counseling: I had a detailed discussion with the patient and/or guardian regarding the historical points, exam findings, and any diagnostic results supporting the discharge/admit diagnosis, lab results, radiology results, the need for outpatient follow up, to return to the emergency department if symptoms worsen or persist or if there are any questions or concerns that arise at home. Response to treatment: the patient's symptoms have markedly improved after treatment. 06/15 10:37 Order name: Basic Metabolic Panel; Complete Time: 11: rt 06/15 10:37 Order name: CBC with Diff; Complete Time: : rt 06/15 10:37 Order name: LFT's; Complete Time: : rt 06/15 10:37 Order name: Magnesium; Complete Time: : rt 06/15 10:37 Order name: NT PRO-BNP; Complete Time: : rt 06/15 10:37 Order name: Troponin HS; Complete Time: : rt 06/15 12:18 Order name: Troponin High Sensitivity; Complete Time: 12:46 rt 06/15 10:37 Order name: XRAY Chest (1 view); Complete Time: 11:35 rt 06/15 10:37 Order name: EKG; Complete Time: 10:37 rt 06/15 10:37 Order name: Cardiac monitoring; Complete Time: 10: rt 06/15 10:37 Order name: EKG - Nurse/Tech; Complete Time: : rt 06/15 10:37 Order name: IV Saline Lock; Complete Time: : rt 06/15 10:37 Order name: Labs collected and sent; Complete Time: : rt 06/15 10:37 Order name: O2 Per Protocol; Complete Time: : rt 06/15 10:37 Order name: O2 Sat Monitoring; Complete Time: :52 rt EC:18 Rate is 72 beats/min. Rhythm is regular, Normal Sinus Rhythm with Occasional PVCs. QRS rt [place] is Normal. IA interval is normal. QRS interval is normal. QT interval is normal. No Q waves. T waves are Normal. No ST changes noted. Interpreted by me. Administered Medications: No medications were administered Disposition Summary: 06/15/24 12:51 Discharge Ordered Notes: Location: Home rt Problem: new rt Symptoms: have improved rt Condition: Stable rt Diagnosis - Chest pain, unspecified rt Followup: rt - With: Anthony Schwarz MD - When: 2 - 3 days - Reason: Discharge Instructions: - Discharge Summary Sheet rt - Nonspecific Chest Pain, Adult rt Forms: - Medication Reconciliation Form rt - Antibiotic Education rt - Prescription Opioid Use rt - Patient Portal Instructions rt - Leadership Thank You Letter rt Prescriptions: - Nitrostat 0.4 mg Sublingual Tablet, Sublingual - place 1 tablet SUBLINGUAL route one time As needed - at the first sign of an rt attack; no more than 3 tablets are recommended within a 15 minute period.; 25 tablet; Refills: 0, Product Selection Permitted Signatures: Dispatcher [employer] EDMS Sean Desouza MD MD rt Gume Bautista RN RN rs5 Corrections: (The following items were deleted from the chart) 10:37 10:37 BASIC METABOLIC PANEL+C.LAB.BRZ ordered. EDMS EDMS 10:37 10:37 CBC+H.LAB.BRZ ordered. EDMS EDMS 10:37 10:37 HEPATIC FUNCTION+C.LAB.BRZ ordered. EDMS EDMS 10:37 10:37 MAGNESIUM+C.LAB.BRZ ordered. EDMS EDMS 10:37 10:37 PROBNP+C.LAB.BRZ ordered. EDMS EDMS 10:37 10:37 Troponin High Sensitivity+C.LAB.BRZ ordered. EDMS EDMS 12:18 12:18 Troponin High Sensitivity+C.LAB.BRZ ordered. EDMS EDMS
--- NOTE | 2024-06-15 12:51 | ER ---
Nurse's Notes [facility] Name: Madi Tiwari III Age: 73 yrs Sex: Male : 1950 Arrival Date: 06/15/2024 Time: 10:22 Bed 17 Private MD: Diagnosis: Chest pain, unspecified Presentation: 06/15 10:29 Chief complaint: EMS states: Chest pain, palpitations, and dizziness that started this rs5 morning. Coronavirus screen: At this time, the client does not indicate any symptoms associated with coronavirus-19. Ebola Screen: No symptoms or risks identified at this time. Initial Sepsis Screen: Does the patient meet any 2 criteria? No. Patient's initial sepsis screen is negative. Does the patient have a suspected source of infection? No. Patient's initial sepsis screen is negative. Risk Assessment: Do you want to hurt yourself or someone else? Patient reports no desire to harm self or others. Onset of symptoms was June 15, 2024. Care prior to arrival: Medication(s) given: ASA, 325 mg, x 1. 10:29 Method Of Arrival: EMS: [facility] rs5 10:29 Acuity: [place] 3 rs5 Historical: - Allergies: 10:33 No Known Allergies; rs5 - PMHx: 10:33 Anxiety; Anemia; Atrial Fib; Crohn's; Hypertension; Hypothyroidism; neuropathy; rs5 osteoarthristis; - PSHx: 10:33 chest; Colon; rs5 - Immunization history:: Adult Immunizations up to date. - Infectious Disease History:: Denies. - Social history:: Smoking status: Patient denies any tobacco usage or history of. - Family history:: not pertinent. Screenin:32 [facility] ED Fall Risk Assessment (Adult) History of falling in the last 3 months, rs5 including since admission No falls in past 3 months (0 pts) Confusion or Disorientation No (0 pts) Intoxicated or Sedated No (0 pts) Impaired Gait No (0 pts) Mobility Assist Device Used No (0 pt) Altered Elimination No (0 pt) Score/Fall Risk Level 0 - 2 = Low Risk Oriented to surroundings, Maintained a safe environment. Abuse screen: Denies threats or abuse. Nutritional screening: No deficits noted. Tuberculosis screening: No symptoms or risk factors identified. Assessment: 10:33 General: Appears uncomfortable, Behavior is cooperative. Pain: Complains of pain in rs5 chest Pain does not radiate. Pain currently is 3 out of 10 on a pain scale. Quality of pain is described as aching, Pain began 2 hours ago. Is continuous. Neuro: Level of Consciousness is awake, alert, obeys commands, Oriented to person, place, time, situation. Cardiovascular: Patient's skin is warm and dry. Respiratory: Airway is patent Respiratory effort is even, unlabored, Respiratory pattern is regular, symmetrical. GI: Abdomen is round non-distended, Abd is soft and non tender X 4 quads. : No signs and/or symptoms were reported regarding the genitourinary system. EENT: No signs and/or symptoms were reported regarding the EENT system. 10:33 Derm: Skin is intact, Skin is pink, warm \T\ dry. rs5 11:36 Reassessment: Patient and/or family updated on plan of care and expected duration. Pain rs5 level reassessed. Patient is alert, oriented x 3, equal unlabored respirations, skin warm/dry/pink. 13:01 Reassessment: Patient and/or family updated on plan of care and expected duration. Pain rs5 level reassessed. Patient is alert, oriented x 3, equal unlabored respirations, skin warm/dry/pink. 13:22 Reassessment: Patient and/or family updated on plan of care and expected duration. Pain rs5 level reassessed. Patient is alert, oriented x 3, equal unlabored respirations, skin warm/dry/pink. Vital Signs: 10:29 BP 143 / 64; Pulse 74; Resp 17; Temp 98(O); Pulse Ox 98% ; rs5 11:36 BP 119 / 53; Pulse 58; Resp 17; Pulse Ox 99% on R/A; rs5 13:15 BP 122 / 61; Pulse 66; Resp 16; Pulse Ox 98% on R/A; rs5 14:05 BP 125 / 64; Pulse 69; Resp 17; Pulse Ox 99% ; rs5 ED Course: 10:29 Patient arrived in ED. rs5 10:30 Sean Desouza MD is Attending Physician. rt 10:32 Patient has correct armband on for positive identification. Bed in low position. Call rs5 light in reach. Side rails up X2. Client placed on continuous cardiac and pulse oximetry monitoring. NIBP monitoring applied. quality assurance monitor on. Pulse ox on. NIBP on. 10:32 No provider procedures requiring assistance completed. Inserted saline lock: 20 gauge rs5 in right antecubital area, using aseptic technique. Blood collected. Flushed with 10 mL NS. Patient maintains SpO2 saturation greater than 95% on room air. 10:33 Triage completed. rs5 10:52 Gume Bautista, RN is Primary Nurse. rs5 11:21 XRAY Chest (1 view) In Process Unspecified. EDMS 12:22 Repeat lab(s) drawn. by me, sent to lab. jl7 12:51 Anthony Schwarz MD is Referral Physician. rt 13:10 Provided Education on: discharge instructions . rs5 13:24 IV discontinued, intact, bleeding controlled, No redness/swelling at site. Pressure rs5 dressing applied. Administered Medications: No medications were administered Medication: 11:36 VIS not applicable for this client. rs5 Outcome: 12:51 Discharge ordered by MD. rt 13:24 Discharged to home ambulatory, with family, rs5 13:24 Condition: stable 13:24 Discharge instructions given to patient, family, Instructed on discharge instructions, follow up and referral plans. medication usage, Demonstrated understanding of instructions, follow-up care, medications, 13:25 Patient left the ED. rs5 Signatures: Dispatcher [employer] EDMS Lisa Damon RN RN jl7 Sean Desouza MD MD rt Gume Bautista, SHERLYN RN rs5 Corrections: (The following items were deleted from the chart) 14:05 13:50 Reassessment: Patient and/or family updated on plan of care and expected rs5 duration. Pain level reassessed. Patient is alert, oriented x 3, equal unlabored respirations, skin warm/dry/pink. rs5 14:05 13:15 BP 122 / 61; Pulse 16bpm; Pulse Ox 98% RA; rs5 rs5
[2024-06-15 14:23] VITALS: TEMP 98
[2024-06-15 14:24] VITALS: BP 119/53; O2SAT 99
--- NOTE | 2024-06-18 10:20 | EKG ---
Test Date: 2024-06-15 Test Time: 10:37:23 [employer] Worker: BING MEASUREMENT RESULTS: Intervals: Rate: 72 PA: 208 QRSD: 104 QT: 378 QTc: 413 [place]: P: 59 PA: 208 QRS: 23 T: 63 INTERPRETIVE STATEMENTS: Sinus rhythm with occasional premature ventricular complexes Otherwise normal ECG Compared to ECG 08/17/2023 16:44:53 Ventricular premature complex(es) now present Electronically Signed On 06-18-24 10:19:58 ROLL OVER PRESS OPERATOR by Demetrius Orlanod
== END 2024-06-15 13:25 | disposition home or self-care (01) ==
LOC: ER 10:22
DX: R07.9 Chest pain, unspecified (principal); I10 Essential (primary) hypertension; F41.9 Anxiety disorder, unspecified
CPT/HCPCS: 36415; 71045; 80048; 80076; 83735; 83880; 84484; 85025; 93005

== ENCOUNTER 2024-09-06 07:00 | Day surgery (SDC) | payer OTHER, BC ==
[2024-09-04 11:15] LABS: Absolute Eosinophils 0.1 K/uL (0-0.5); Absolute Lymphocytes (CBC) 0.6 K/uL (0.7-4.9); Absolute Monocytes 0.5 K/uL (0.1-1.3); Absolute Neutrophil 3.1 K/uL (1.8-8.0); Basophils % 0.5 % (0-1.3); Eosinophils % 2.3 % (0-4.4); Hematocrit 33.7 % (39.6-49.0); Hemoglobin 11.6 g/dL (13.6-17.9); Lymphocytes % 14.6 % (15.3-44.8); MCH 32.6 pg (27.0-35.0); MCHC 34.5 g/dL (32.0-36.0); MCV 94.4 fL (80-100); Monocytes % 11.8 % (3.3-12.3); Neutrophils % 70.8 % (41.7-73.7); Platelets 229 thou/uL (152-406); RBC Red Blood Cell Count 3.57 M/uL (4.33-5.43); Red Cell Distribution Width 13.2 % (12.1-15.2)
[2024-09-04 11:33] LABS: PT Prothrombin Time 11.5 SECONDS (9.4-12.5); PTT, Activated Partial Thromb 33.3 SECONDS (24.3-36.9); Protime INR 1.1
[2024-09-04 11:36] LABS: Anion Gap 6.4 mEq/L (5.0-15.0); Potassium 4.4 mEq/L (3.5-5.1)
[2024-09-06] MEDS ORDERED: NA CHLORIDE 0.9% 500 ML ONE (07:11)
[2024-09-06] MEDS ORDERED: MIDAZOLAM HCL 2 MG/2 ML INJ ONE (07:14)
[2024-09-06] MEDS ORDERED: LIDOCAINE 1% 20 ML MDV ONE (07:14)
[2024-09-06] MEDS ORDERED: HEPARIN 10,000 UNIT/10 ML VIAL IV ONE (07:14)
[2024-09-06] MEDS ORDERED: NITROGLYCERIN/D5W 50 MG/250 ML BTL IV ONE (07:14)
[2024-09-06] MEDS ORDERED: HEPA 1000U/500MLS 2,000 UNIT/1,000 ML BAG IV ONE (07:14)
[2024-09-06] MEDS ORDERED: ATROPINE SULF 1 MG/10 ML SYR IV ONE (07:14)
[2024-09-06] MEDS ORDERED: TICAGRELOR 90 MG TABLET PO ONE (07:15)
[2024-09-06] MEDS ORDERED: HEPARIN 5000 UNIT/ML 1 ML VIAL ONE (07:15)
[2024-09-06] MEDS ORDERED: CLOPIDOGREL 75 MG TABLET ONE (07:15)
[2024-09-06] MEDS ORDERED: ASPIRIN 325 MG TAB ONE (07:15)
[2024-09-06] MEDS ORDERED: FENTANYL CITR 100 MCG/2 ML ONE (07:16)
[2024-09-06 08:37] VITALS: O2SAT 100
[2024-09-06 10:39] VITALS: BP 108/50
--- NOTE | 2024-09-10 12:29 | EKG ---
Test Date: 2024-09-04 Test Time: 11:50:02 Security Patrol Officer: ERNESTINE MEASUREMENT RESULTS: Intervals: Rate: 56 LA: 200 QRSD: 110 QT: 388 QTc: 374 [place]: P: 77 LA: 200 QRS: 50 T: 65 INTERPRETIVE STATEMENTS: Sinus bradycardia Otherwise normal ECG Compared to ECG 08/06/2024 16:18:20 Sinus rhythm no longer present Incomplete right bundle-branch block no longer present Electronically Signed On 09-10-24 12:17:29 NEW ACCOUNT INTERVIEWER by Demetrius Orlando
--- NOTE | 2024-09-10 13:33 | OP ---
Date of Procedure: 09/06/2024 Surgeon: Demetrius Orlando Procedure Performed: Selective coronary angiogram. Indication For Procedure: Unstable angina. Complications: None. Estimated Blood Loss: Less than 50 cc. Access: Right radial, closed by TR band. Sedation Time: 20 minutes with 1 of Versed and 25 of fentanyl. Description Of Procedure: After risks, and benefits, and alternatives were explained to the patient, patient agreed to proceed with procedure and signed informed consent. The patient was brought back to the cardiac cath lab manager, prepped and draped in a sterile fashion. Time-out was performed. Sedation was admi nistered. Next, the right radial access was obtained using ultrasound-guided micropuncture technique . [place] 4.0 catheter was advanced over a J-wire to the aortic root. Selective angiogram was used us ing the same catheter. At the end of procedure, catheter was removed over a J-wire. Sheath was jordon madonna. TR band was applied. Hemostasis was achieved, and the patient was moved back to Recovery in st able condition. Findings: 1. Left main normal. 2. LAD; proximal 20% to 30% disease, then mid to distal mild luminal irregularities. 3. Left circ; mild luminal irregularities. 4. RCA; mild luminal irregularities. Assessment And Plan: Mild proximal LAD disease. The plan will be to continue medical management. AURELIO/ADRYAN Voice ID: [id number] Report ID: [id number]
== END 2024-09-06 10:37 | disposition home or self-care (01) ==
LOC: CCL 07:00
PROVIDERS: ADMIT Internal Medicine; ATTEND Internal Medicine Interventional Cardiology
DX: I25.10 Atherosclerotic heart disease of native coronary artery without angina pectoris (principal); I11.0 Hypertensive heart disease with heart failure; I50.32 Chronic diastolic (congestive) heart failure; I48.0 Paroxysmal atrial fibrillation; E78.5 Hyperlipidemia, unspecified; D64.9 Anemia, unspecified; E03.9 Hypothyroidism, unspecified; K50.90 Crohn's disease, unspecified, without complications; Z79.82 Long term (current) use of aspirin; Z79.899 Other long term (current) drug therapy
CPT/HCPCS: 93005; 85025; 80048; 36415; 85610; 85730; 93454; 76937; C1893; Q9966; J1644; J2003; J2250; J3010; J7040; 99152; 99153; J0461